=== PATIENT | male | born 1965 | race Caucasian/White ===

== ENCOUNTER → 2018-02-19 | Outpatient (CLI) | payer OTHER ==
[~2018-02-19] MED LIST: GADOBENATE DIMEGLUMINE 0 ML IV ONE
== END ==
LOC: MRI 07:24
PROVIDERS: ATTEND Internal Medicine
DX: I25.10 Atherosclerotic heart disease of native coronary artery without angina pectoris (principal); G90.50 Complex regional pain syndrome I, unspecified; G90.9 Disorder of the autonomic nervous system, unspecified

== ENCOUNTER → 2018-04-13 | Outpatient (CLI) | payer OTHER ==
--- NOTE | 2018-04-13 17:18 | Diagnostic Imaging Report ---
Ventilation/perfusion lung scan Clinical Information: 53 M with COPD and acute chest pain Comparison: None Discussion: Xenon-133 gas 20 mCi was administered via inhalation. Dynamic images of the lungs in the posterior projection were obtained through single breath, equilibrium, and washout phases. Distribution of tracer activity appears physiologic throughout the lungs.. There are no segmental ventilatory defects. Washout of tracer is diffusely delayed with no evidence of air trapping. Perfusion images of the lungs were obtained in multiple projections following intravenous administration of approximately 6.6 mCi of Tc-99m MAA. Distribution of tracer appears physiologic throughout the lungs. The contours of the lungs are well demarcated. There are no segmental perfusion defects of any size. The cardiomediastinal silhouette is unremarkable. Impression: 1. Scan findings represent a VERY LOW probability for acute pulmonary embolic disease based on the PIOPED II criteria. 2. Ventilation findings consistent with known obstructive lung disease. Signed by: Dr. Dionne Quinones M.D. on 04/13/2018 5:14 PM
== END | disposition home or self-care (01) ==
LOC: NM 09:58
PROVIDERS: ATTEND Internal Medicine
DX: R07.9 Chest pain, unspecified (principal); R06.02 Shortness of breath; I25.118 Atherosclerotic heart disease of native coronary artery with other forms of angina pectoris; J44.9 Chronic obstructive pulmonary disease, unspecified; E78.5 Hyperlipidemia, unspecified; Z95.5 Presence of coronary angioplasty implant and graft; H40.9 Unspecified glaucoma; Z88.0 Allergy status to penicillin; Z88.8 Allergy status to other drugs, medicaments and biological substances
CPT/HCPCS: 78582; A9540; A9558

== ENCOUNTER 2019-07-06 15:01 | Observation (INO) | payer MEDICARE, OTHER ==
[~2019-07-06] VITALS: Ht 172.7 cm; Wt 89.4 kg
--- OUTSIDE RECORDS SUMMARY | 2019-07-06 15:04 | XMS REPORT | Continuity of Care Document ---
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 Role Phone [employer] Unavailable Unavailable Problems Problem Status Onset Date Classification Date Reported Comments Source Age-related nuclear cataract of both eyes Active 11/29/2017 Problem 09/10/2018 [facility] Blindness right eye category 5, normal vision left eye Active 11/29/2017 Problem 09/10/2018 [facility] Transient visual loss of both eyes Active 11/27/2017 Problem 09/10/2018 [facility] Elevated C-reactive protein (CRP) Active 11/27/2017 Problem 09/10/2018 [facility] Elevated erythrocyte sedimentation rate Active 11/27/2017 Problem 09/10/2018 [facility] 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 11/27/2017 Problem 09/10/2018 [facility] Chronic systolic congestive heart failure Active 10/13/2017 Problem 09/10/2018 [facility] Vision loss of right eye Active 10/06/2017 Problem 09/10/2018 [facility] CAD S/P percutaneous coronary angioplasty Active 10/06/2017 Problem 09/10/2018 [facility] Chronic congestive heart failure Active 10/06/2017 Problem 09/10/2018 [facility] Smoker Active 10/06/2017 Problem 09/10/2018 [facility] Concern about stroke without diagnosis Active 10/06/2017 Problem 09/10/2018 [facility] S/P colonoscopy with polypectomy Active 10/06/2017 Problem 09/10/2018 [facility] Family history of colon cancer in mother Active 10/06/2017 Problem 09/10/2018 [facility] Wheezing Active 10/06/2017 Problem 09/10/2018 [facility] Abnormal EKG Active Diagnosis 09/23/2015 Josefa Nick CAD, [place] Coronary Artery Active Problem 09/23/2015 Josefa Nick Hypercholesterolemia Active Problem 09/23/2015 Josefa Nick Atheroscler of [place] artery of both legs with intermit claudication Active Problem 09/23/2015 Josefa Nick Shortness of breath Active Problem 09/23/2015 Josefa Nick Ischemic cardiomyopathy Active Problem 09/23/2015 Josefa [place] PTCA Status Active Problem 09/23/2015 Josefa [place] Acute myocardial infarction of anterolateral wall, initial episode of care Active Problem 09/23/2015 Josefa De La Rosashahrzad Angina Active Problem 09/23/2015 Josefa De La Rosashahrzad PA Old myocardial infarction Active Problem 09/23/2015 Josefa [place] Mitral valve disorders Active Problem 09/23/2015 Josefa [place] Cough Active Problem 09/10/2018 [facility] Influenza Active Problem 09/10/2018 [facility] Tachycardia Active Problem 09/10/2018 [facility] Tachypnea Active Problem 09/10/2018 [facility] SIRS (systemic inflammatory response syndrome) Active Problem 09/10/2018 [facility] Medications Medication Details Route Status Patient Instructions Ordering Provider Order Date Source Latanoprost 0.005 % Eye Drops Xalatan 0.005 % Eye Drops Instill 1 Drop in right eye at bedtime nightly. Active 11/27/2017 [facility] Ibuprofen 800 Mg Tablet Take 800 mg by mouth every 8 hours as needed. Oral No Longer Active 11/17/2017 [facility] Oseltamivir 75 Mg Capsule Take 1 capsule by mouth 2 times daily for 5 days. Oral No Longer Active 11/17/2017 [facility] Promethazine 25 Mg Tablet Take 1 tablet by mouth every 6 hours as needed for up to 7 days for Nausea or Vomiting. Oral No Longer Active 11/17/2017 [facility] Albuterol Sulfate Hfa 90 McG/Actuation Aerosol Inhaler Inhalation Inactive 10/06/2017 [facility] Peg 3350-Electrolytes 236 Gram-22.74 Gram-6.74 Gram-5.86 Gram Solution Add lukewarm drinking water to the fill tanvi (4 liters) and shake. Drink as directed by your doctor.. Active 10/06/2017 [facility] Albuterol Sulfate Hfa 90 McG/Actuation Aerosol Inhaler Inhale 2 Puffs by mouth 4 times daily as needed for Wheezing or Shortness of Breath. Inhalation Active 10/06/2017 [facility] Losartan Potassium 1 tablet Orally Active 25 MG Orally Once a day [facility] 07/03/2014 [facility] [place] Livalo 1 tablet Orally Active 4 MG Orally Once a day [facility] 06/10/2014 [facility] Rjshahrzad Coreg 1 tablet with food Orally Active 3.125 MG Orally Twice a day [place] 06/10/2014 Josefa Nick Protonix 1 tablet Orally Active 40 mg [facility]ally [facility] Plavix 1 tablet Orally Active 75 mg Orally Once a day [facility] Mitul Nick Famotidine 1 tablet at bedtime Orally Active 40 mg Orally Once a day [facility] Mitul Nick Carvedilol 1 tablet Orally Active 3.125 MG Orally Twice a day [facility] Mitul Nick Hyoscyamine Sulfate CR 1 tablet Orally Active 0.375 MG Orally Twice a day [facility] Mitul Nick Pantoprazole Sodium 1 tablet Orally Active 40 mg Orally Once a day [facility] Mitul Nick Florastor 1 capsule Orally Active 250 MG Orally Twice a day [facility] Mitul Nick Aspirin 81 Mg Chewable Tablet Chew and swallow 81 mg by mouth daily. Active [facility] Carvedilol 3.125 Mg Tablet Take 12.5 mg by mouth 2 times daily (with meals) . Oral Active [facility] Clopidogrel 75 Mg Tablet Take 75 mg by mouth daily. Oral Active [facility] Losartan 100 Mg Tablet Take 100 mg by mouth daily. Oral Active [facility] Nitroglycerin 0.[address] 0.4 mg under tongue every 5 minutes as needed Dissolve 1 tablet under the tongue every 5 minutes as needed, up to 3 times. If chest pain persists, call 911. Sublingual Active [facility] ranolazine (RANEXA) 500 mg extended release tablet Take 500 mg by mouth 2 times daily. Oral Active [facility] Isosorbide Mononitrate Er 30 Mg Tablet,Extended Release 24 Hr Take 30 mg by mouth daily. Oral Active [facility] Pravastatin 40 Mg Tablet Take 40 mg by mouth at bedtime nightly. Oral Active [facility] [employer] Allergies, Adverse Reactions, Alerts Substance Category Reaction Severity Reaction type Status Date Reported Comments Source statins Adverse Reaction Muscle weakness Adverse Reaction Active 10/02/2014 Josefa Nick [place] Adverse Reaction anaphylaxis Adverse Reaction Active 10/02/2014 Josefa Nick Tagamet HB Adverse Reaction Shortness of breath Adverse Reaction Active 10/02/2014 Josefa Nick Lisinopril Adverse Reaction Hypotension Adverse Reaction Active 10/02/2014 Josefa Nick Lipitor Adverse Reaction Weakness & muscle aches Adverse Reaction Active 10/02/2014 Josefa Nick Penicillin Rash High Propensity to adverse reactions to drug Active 10/06/2017 [facility] Cimetidine Rash High Propensity to adverse reactions to drug Active 10/06/2017 [facility] Immunizations Immunization Date Given Site Status Last Updated Comments Source Pneumococcal Conjugate <Unspecified> 08/18/2017 completed [facility] Results Order Name Results Value Reference Range Date Interpretation Comments Source ELECTROPH, BLD Protein 7.9 11/21/2017 [facility] ELECTROPH, BLD Comment Electronically signed out by: Maddi Whalen,PhD./[id number] (note) INTERPRETATION: The Alpha-2 fraction is increased. This could represent increase in Alpha-2 macroglobulin or haptoglobin among others. These are acute phas reactants. Alpha-2 globulins may also be increased in renal failure. 11/21/2017 [facility] SYPHILIS SCREEN FOR INFECTION Treponemal Ab Negative 11/21/2017 [facility] SYPHILIS SCREEN FOR INFECTION Final Report Negative 11/21/2017 [facility] HEMOGLOBIN A1C Hemoglobin A1c 6.1 4.3 - 6.1 11/21/2017 [facility] HEMOGLOBIN A1C Est Average Gluc 128.4 11/21/2017 [facility] SED RATE Sed Rate 32 <20 mm/Hr 11/21/2017 [facility] SED RATE Lab Interpretation Abnormal 11/21/2017 [facility] VITAMIN B12 Vitamin B12 297 211 - 911 11/21/2017 [facility] TSH TSH 1.34 0.45 - 3.50 11/21/2017 [facility] C-REACTIVE PROT C-Reactive Prot 8.74 0 - 0.79 11/21/2017 [facility] C-REACTIVE PROT Lab Interpretation Abnormal 11/21/2017 [facility] BASIC METABOLIC PANEL CO2 28 21 - 31 11/20/2017 [facility] BASIC METABOLIC PANEL Chloride 100 98 - 107 11/20/2017 [facility] BASIC METABOLIC PANEL Potassium 3.8 3.5 - 5.1 11/20/2017 [facility] BASIC METABOLIC PANEL Sodium 138 136 - 145 11/20/2017 [facility] BASIC METABOLIC PANEL Glucose 126 70 - 99 11/20/2017 [facility] BASIC METABOLIC PANEL Urea Nitrogen 10 7 - 25 11/20/2017 [facility] BASIC METABOLIC PANEL Creatinine 1.11 0.6 - 1.3 11/20/2017 [facility] BASIC METABOLIC PANEL Anion Gap 10 11/20/2017 [facility] BASIC METABOLIC PANEL Calcium 8.9 8.6 - 10.3 11/20/2017 [facility] BASIC METABOLIC PANEL GFR, Estimated >60 mL/min/1.73 m2 11/20/2017 [facility] BASIC METABOLIC PANEL GFR, Estim, Afr-Am >60 mL/min/1.73 m2 11/20/2017 [facility] BASIC METABOLIC PANEL Lab Interpretation Abnormal 11/20/2017 [facility] LIPID PROFILE Cholesterol 141 0 - 200 11/20/2017 REFERENCE RANGE:
Desirable: <200 mg/dL
Borderline: 200-240 mg/dL
High Risk: >240 mg/dL
National Heart, Lung and Blood [place], [facility] Publication No.[id number] February
2000

[facility] LIPID PROFILE Triglyceride 104 <150 11/20/2017 REFERENCE RANGE:
Normal: <150 mg/dL
Borderline High: 150-199 mg/dL
High: 200-499 mg/dL
Very High: >ny=049 mg/dL

[facility] LIPID PROFILE HDL 24 40 - 60 11/20/2017 [facility] LIPID PROFILE LDL 96 11/20/2017 REFERENCE RANGE:
Optimal: <100 mg/dL
Near Optimal: 100-129 mg/dL
Borderline High: 130-159 mg/dL
High: 160-189 mg/dL
Very High: >ce=147 mg/dL

[facility] LIPID PROFILE Lab Interpretation Abnormal 11/20/2017 [facility] CBC/DIFF WBC 8.3 4.5 - 12 11/20/2017 [facility] CBC/DIFF RBC 4.54 4.60 - 6.20 11/20/2017 [facility] CBC/DIFF Hemoglobin 14.1 14 - 18 11/20/2017 [facility] CBC/DIFF Hematocrit 41.1 40 - 54 11/20/2017 [facility] CBC/DIFF MCV 91 82 - 92 11/20/2017 [facility] CBC/DIFF MCH 31.1 27 - 31 11/20/2017 [facility] CBC/DIFF MCHC 34.3 32 - 36 11/20/2017 [facility] CBC/DIFF RDW 42.5 35.1 - 43.9 11/20/2017 [facility] CBC/DIFF Platelet 352 150 - 400 11/20/2017 [facility] CBC/DIFF Neutrophil 67.0 34 - 67.9 11/20/2017 [facility] CBC/DIFF Lymphocyte 24.0 21.8 - 50 11/20/2017 [facility] CBC/DIFF Atypical Lymph 2 11/20/2017 [facility] CBC/DIFF Monocyte 6.0 5.3 - 12 11/20/2017 [facility] CBC/DIFF Basophil None seen 0.2 - 1.2 11/20/2017 [facility] CBC/DIFF Eosinophil 1.0 0.8 - 5 11/20/2017 [facility] CBC/DIFF NRBC 1 /100 WBC 11/20/2017 [facility] CBC/DIFF Neutrophil, Abs 5.56 1.78 - 5.36 11/20/2017 [facility] CBC/DIFF Lymphocyte, Abs 1.99 1.32 - 3.57 11/20/2017 [facility] CBC/DIFF Monocyte, Abs 0.50 0.3 - 0.82 11/20/2017 [facility] CBC/DIFF Basophil, Abs None seen 0.01 - 0.08 11/20/2017 [facility] CBC/DIFF Eosinophil, Abs 0.08 0.04 - 0.54 11/20/2017 [facility] CBC/DIFF Large Platelets 1+ 11/20/2017 [facility] CBC/DIFF Lab Interpretation Abnormal 11/20/2017 [facility] MAGNESIUM Magnesium 2.4 1.8 - 2.4 11/17/2017 [facility] INFLUENZA RSV SUBTYPE Influenza A Not detected 11/17/2017 [facility] INFLUENZA RSV SUBTYPE Influenza A,H1 Not detected 11/17/2017 [facility] INFLUENZA RSV SUBTYPE Influenza A,H3 Not detected 11/17/2017 [facility] INFLUENZA RSV SUBTYPE Flu A [id number] Not detected 11/17/2017 [facility] INFLUENZA RSV SUBTYPE Influenza B PCR Detected 11/17/2017 [facility] INFLUENZA RSV SUBTYPE RSV A Not detected 11/17/2017 [facility] INFLUENZA RSV SUBTYPE RSV B Not detected This test utilizes FDA cleared INSOMENIAigene Respiratory Virus Plus Nucleic Acid Test from [employer]. This test is a qualitative multiplexed test for the detection of Influenza A, Influenza A H1, Influenza A H3, Influenza A 2009 H1N1, Influenza B, RSV A and RSV B. 11/17/2017 [facility] LEGIONELLA AG, UR Legionella Ag, Ur Negative NEG 11/17/2017 [facility] RAPID INFLUENZA SCREEN Spec Description Nasal 11/17/2017 [facility] RAPID INFLUENZA SCREEN Order Comments None 11/17/2017 [facility] RAPID INFLUENZA SCREEN Direct Exam Negative for Influenza A and B by EIA 11/17/2017 [facility] RAPID INFLUENZA SCREEN Report Status Final 11/16/2017 11/17/2017 [facility] SPUTUM STAIN / CULTURE Spec Description Sputum 11/17/2017 [facility] SPUTUM STAIN / CULTURE Order Comments None 11/17/2017 [facility] SPUTUM STAIN / CULTURE Gram Stain 2+ WBC's seen 1+ Epithelial cells Mixed bacterial morphotypes seen 11/17/2017 [facility] SPUTUM STAIN / CULTURE Culture 4+ Normal iliana 11/17/2017 [facility] SPUTUM STAIN / CULTURE Report Status Final 11/19/2017 11/17/2017 [facility] UA CHEMISTRIES Color Lolly 11/17/2017 [facility] UA CHEMISTRIES Clarity Hazy 11/17/2017 [facility] UA CHEMISTRIES Spec [place] 1.029 1.001 - 1.035 11/17/2017 [facility] UA CHEMISTRIES pH 5.0 5 - 8 11/17/2017 [facility] UA CHEMISTRIES Protein 3+ NEG 11/17/2017 [facility] UA CHEMISTRIES Glucose Negative NEG 11/17/2017 [facility] UA CHEMISTRIES Ketone 1+ NEG 11/17/2017 [facility] UA CHEMISTRIES Bilirubin Negative NEG 11/17/2017 [facility] UA CHEMISTRIES Nitrate Negative NEG 11/17/2017 [facility] UA CHEMISTRIES Urobilinogen 2.0 0.2 - 1 11/17/2017 [facility] UA CHEMISTRIES Leukocyte Negative NEG 11/17/2017 [facility] UA CHEMISTRIES Blood 2+ NEG 11/17/2017 [facility] UA CHEMISTRIES RBC 4 0 - 4 11/17/2017 [facility] UA CHEMISTRIES WBC 5 0 - 5 11/17/2017 [facility] UA CHEMISTRIES Epithelial Cell 2 /HPF 11/17/2017 [facility] UA CHEMISTRIES Mucous Present 11/17/2017 [facility] UA CHEMISTRIES Lab Interpretation Abnormal 11/17/2017 [facility] BLOOD CULTURE Spec Description Blood Left arm 11/16/2017 [facility] BLOOD CULTURE Order Comments None 11/16/2017 [facility] BLOOD CULTURE Culture No growth 5 days 11/16/2017 [facility] BLOOD CULTURE Report Status Final 11/21/2017 11/16/2017 [facility] B NATRIURETIC PEPT B Natriuretic Pept 80 <101 11/16/2017 [facility] PT/INR PT 13.8 11.8 - 15.0 11/16/2017 [facility] PT/INR INR 1.1 SUGGESTED THERAPEUTIC RANGES: INR 2.0-3.0 for MODERATE INTENSITY ANTICOAGULATION INR 2.5-3.5 for HIGH INTENSITY ANTICOAGULATION 11/16/2017 [facility] COMPREHENSIVE METABOLIC PANEL(DBIL NOT INCLUDED) Albumin 3.6 3.4 - 5 11/16/2017 [facility] COMPREHENSIVE METABOLIC PANEL(DBIL NOT INCLUDED) Calcium 8.4 8.5 - 10.2 11/16/2017 [facility] COMPREHENSIVE METABOLIC PANEL(DBIL NOT INCLUDED) CO2 22.6 21 - 32 11/16/2017 [facility] COMPREHENSIVE METABOLIC PANEL(DBIL NOT INCLUDED) Chloride 95 98 - 107 11/16/2017 [facility] COMPREHENSIVE METABOLIC PANEL(DBIL NOT INCLUDED) Creatinine 1.32 0.6 - 1.3 11/16/2017 [facility] COMPREHENSIVE METABOLIC PANEL(DBIL NOT INCLUDED) Glucose 91 70 - 99 11/16/2017 [facility] COMPREHENSIVE METABOLIC PANEL(DBIL NOT INCLUDED) Alk Phos 105 45 - 117 11/16/2017 [facility] COMPREHENSIVE METABOLIC PANEL(DBIL NOT INCLUDED) Potassium 4.1 3.5 - 5.1 11/16/2017 [facility] COMPREHENSIVE METABOLIC PANEL(DBIL NOT INCLUDED) Sodium 131 136 - 145 11/16/2017 [facility] COMPREHENSIVE METABOLIC PANEL(DBIL NOT INCLUDED) ALT 21 12 - 78 11/16/2017 [facility] COMPREHENSIVE METABOLIC PANEL(DBIL NOT INCLUDED) AST 32 15 - 37 11/16/2017 [facility] COMPREHENSIVE METABOLIC PANEL(DBIL NOT INCLUDED) Urea Nitrogen 29 7 - 18 11/16/2017 [facility] METABOLIC PANEL(DBIL NOT INCLUDED) T Bilirubin 0.7 0.2 - 1 11/16/2017 [facility] COMPREHENSIVE METABOLIC PANEL(DBIL NOT INCLUDED) T Protein 7.9 6.4 - 8.2 11/16/2017 [facility] COMPREHENSIVE METABOLIC PANEL(DBIL NOT INCLUDED) GFR, Estimated 57 mL/min/1.73 m2 11/16/2017 [facility] COMPREHENSIVE METABOLIC PANEL(DBIL NOT INCLUDED) GFR, Estim, Afr-Am >60 mL/min/1.73 m2 11/16/2017 [facility] COMPREHENSIVE METABOLIC PANEL(DBIL NOT INCLUDED) Anion Gap 13.4 11/16/2017 [facility] METABOLIC PANEL(DBIL NOT INCLUDED) Lab Interpretation Abnormal 11/16/2017 [facility] OCCULT BLOOD ICT Occult Blood ICT Negative NEG 11/16/2017 [facility] 12 LEAD EKG 12 LEAD EKG FOR [facility] Test Date:2017-11-16 Pat Name: NELY Willamspartment: : Gender: MTechnician: [id number] :1965 Requested By: Order Number:Christal STAFFORD: Carmen Figueroa M.D. Measurements IntervalsAxis Rate: 119P:54 WA: 151QRS:70 QRSD: 83 T:65 QT: 317 QTc:447 Interpretive Statements SINUS TACHYCARDIA POSSIBLE LEFT ATRIAL ENLARGEMENT ANTEROSEPTAL MYOCARDIAL INFARCTION, OF INDETERMINATE AGE Electronically Signed On 11-16-17 14:02:15 ROLL TENDER by Carmen Figueroa M.D. 11/16/2017 [facility] TROPONIN I POC Troponin POC 0.02 0 - 0.08 11/16/2017 [facility] POC CO2 POC 22 21 - 32 11/16/2017 [facility] POC Chloride POC 96 98 - 107 11/16/2017 [facility] POC Potassium POC 3.7 3.5 - 5.1 11/16/2017 [facility] POC Sodium POC 135 136 - 145 11/16/2017 [facility] POC Glucose POC 117 74 - 106 11/16/2017 [facility] POC Urea Nitrogen POC 30 7 - 18 11/16/2017 [facility] POC Creatinine POC 1.4 0.6 - 1.3 11/16/2017 [facility] POC Calcium Ionized POC 1.06 1.15 - 1.29 11/16/2017 [facility] POC Hemoglobin POC 19.0 14 - 18 11/16/2017 [facility] POC Hematocrit POC 56.0 40 - 54 11/16/2017 [facility] POC GFR, Estimated 53 mL/min/1.73 m2 11/16/2017 [facility] POC GFR, Estim, Afr-Am >60 mL/min/1.73 m2 11/16/2017 [facility] POC Lab Interpretation Abnormal 11/16/2017 [facility] 12 LEAD EKG 12 LEAD EKG FOR [facility] Test Date:2017-11-03 Pat Name: NELY Aguilar: : Gender: MTechnician: [id number] :1965 Requested By: Order Number:Reading MD: Carmen Figueroa M.D. Measurements IntervalsAxis Rate: 71 P:51 WA: 152QRS:59 QRSD: 96 T:89 QT: 418 QTc:454 Interpretive Statements Normal sinus rhythm Anterior infarct, age undetermined Abnormal ECG Electronically Signed On 11-03-17 11:10:14 ROLL TENDER by Carmen Figueroa M.D. 11/03/2017 [facility] CREATININE Creatinine 1.30 0.6 - 1.3 10/10/2017 [facility] CREATININE GFR, Estimated 58 mL/min/1.73 m2 10/10/2017 [facility] CREATININE GFR, Estim, Afr-Am >60 mL/min/1.73 m2 10/10/2017 [facility] Pathology Reports No Data Provided for This Section Diagnostic Reports Report Value Date Source XRAY CHEST 2 VIEWS IMPRESSION: No acute thoracic abnormality. Streaky opacities in the lung basesstatistically represent atelectasis. If the report is "FINALIZED" it indicates that the attending/staffradiologist has reviewed the images and agrees with the resident'sinterpretation. Dictated By: Fabian London MD, 11/16/2017 5:14 PM I have reviewed the study and agree with the findings in this report. Signed By: Ventura Beltran MD, 11/16/2017 5:26 PM EXAMINATION:XRAY CHEST 2 VIEWS INDICATION: Shortness of breath COMPARISON:None FINDINGS:TUBES and LINES:None. LUNGS:Lungs are well inflated.Lungs are clear. There is noevidence of pneumonia or pulmonary edema. PLEURA:No pleural effusion or pneumothorax. HEART AND MEDIASTINUM:The cardiomediastinal silhouette isunremarkable. BONES AND SOFT TISSUES:No acute osseous lesion.Soft tissues areunremarkable. UPPER ABDOMEN: No free air under the diaphragm. Interface, Surya/Mammog In - 11/16/2017 5:31 PM CSTEXAMINATION: XRAY CHEST 2 VIEWS INDICATION: Shortness of breath COMPARISON: None FINDINGS: TUBES and LINES: None. LUNGS: Lungs are well inflated. Lungs are clear. There is no evidence of pneumonia or pulmonary edema. PLEURA: No pleural effusion or pneumothorax. HEART AND MEDIASTINUM: The cardiomediastinal silhouette is unremarkable. BONES AND SOFT TISSUES: No acute osseous lesion. Soft tissues are unremarkable. UPPER ABDOMEN: No free air under the diaphragm. IMPRESSION IMPRESSION: No acute thoracic abnormality. Streaky opacities in the lung bases statistically represent atelectasis. If the report is "FINALIZED" it indicates that the attending/staff radiologist has reviewed the images and agrees with the resident's interpretation. Dictated By: Fabian London MD, 11/16/2017 5:14 PM I have reviewed the study and agree with the findings in this report. Signed By: Ventura Beltran MD, 11/16/2017 5:26 PM 11/16/[address] [facility] [address] HEAD W/O CONTRAST IMPRESSION: 1.Minimal right superior/anterior frontal lobe cortico-subcorticalencephalomalacia perhaps sequela from remote trauma. Persistent priorstudies if available is advised 2.Otherwise no intracra nial abnormalities, particularly no hemorrhageor acute cortical infarcts. I have reviewed the study and agree with the findings in this report. Signed By: Alexia Mantilla MD, 10/17/2017 4:14 PM Exam : Head CT without contrastHistory: Smoker/CAD p/w h/o right eye vision loss/facial numbness on08/18/2017 > neg CTH at OSH, still unable to see.Comparison studies: None. Technique: Axial scans were obtai jodi from skull base to the vertex.Coronal and sagittal reconstructions obtained from the axial data. Radiation Dose: Total DLP: 966.50 mGy*cm.Estimated Effective Dose: DLP x 0.0021 mSv. FINDINGS: Scalp/Skull:No abnormalities. Brain sulci: Appropriate for patient's age.Ventricles: Normal in size and configuration.No hydrocephalus. Extra-axial spaces:No masses or fluid collections. Parenchyma: Minimal focal cortico-subcortical encephalomalacia/gliosis in theanterior aspect of the right superior frontal lobe may represent sequelafrom remote trauma. Otherwise no areas of abnormal density in the brainparenchyma.No masses, hemorrhage or acute or chronic cortical insults. Dural sinuses:No abnormal densities.Sellar/Suprasellar region: Intact.Skull base and Craniocervical junction: Intact. Interface, Rad/Mammog In - 10/17/2017 4:19 PM CSTExam : Head CT without contrast History: Smoker/CAD p/w h/o right eye vision loss/facial numbness on 08/18/2017 > neg CTH at OSH, still unable to see. Comparison studies: None. Technique: Axial scans were obtained from skull base to the vertex. Coronal and sagittal reconstructions obtained from the axial data. Radiation Dose: Total DLP: 966.50 mGy*cm. Estimated Effective Dose: DLP x 0.0021 mSv. FINDINGS: Scalp/Skull: No abnormalities. Brain sulci: Appropriate for patient's age. Ventricles: Normal in size and configuration.No hydrocephalus. Extra-axial spaces: No masses or fluid collections. Parenchyma: Minimal focal cortico-subcortical encephalomalacia/gliosis in the anterior aspect of the right superior frontal lobe may represent sequela from remote trauma. Otherwise no areas of abnormal density in the brain parenchyma. No masses, hemorrhage or acute or chronic cortical insults. Dural sinuses: No abnormal densities. Sellar/Suprasellar region: Intact. Skull base and Craniocervical junction: Intact. IMPRESSION IMPRESSION: 1. Minimal right superior/anterior frontal lobe cortico-subcortical encephalomalacia perhaps sequela from remote trauma. Persistent prior studies if available is advised 2. Otherwise no intracranial abnormalities, particularly no hemorrhage or acute cortical infarcts. I have reviewed the study and agree with the findings in this report. Signed By: Alexia Mantilla MD, 10/17/2017 4:14 PM 10/17/2017 [facility] Consultation Notes No Data Provided for This Section Discharge Summaries No Data Provided for This Section History and Physicals No Data Provided for This Section Vital Signs Vital Sign Value Date Comments Source Systolic (mm Hg) 137 12/01/2017 [facility] Diastolic (mm Hg) 87 12/01/2017 [facility] Heart Rate 75 12/01/2017 [facility] Temperature Oral (F) 36.5 Mary 12/01/2017 [facility] Respitory Rate 18 12/01/2017 [facility] Height 170.7 cm 12/01/2017 [facility] Weight 92.08 12/01/2017 [facility] BMI Calculated 31.60 12/01/2017 [facility] Weight 203 10/02/2014 [facility] Height 68 10/02/2014 [facility] Temperature Oral (F) 96.9 F 10/02/2014 [facility] Heart Rate 69 10/02/2014 [facility] [place] Diastolic (mm Hg) 85 10/02/2014 [facility] [place] Systolic (mm Hg) 130 10/02/2014 [facility] 68 07/03/2014 [facility] [place] Temperature Oral (F) 97.1 F 07/03/2014 [facility]amed [facility] [place] Heart Rate 69 07/03/2014 [facility] [place] Diastolic (mm Hg) 60 07/03/2014 Mohyaritza O [place] Systolic (mm Hg) 115 07/03/2014 [facility] De [facility] Weight 194 06/10/2014 Josefa O [place] Height 68 06/10/2014 [facility] [place] Temperature Oral (F) 96.6 F 06/10/2014 Josefa O Rjoudi Heart Rate 69 06/10/2014 [facility] Diastolic (mm Hg) 60 06/10/2014 [facility] [place] Systolic (mm Hg) 115 06/10/2014 Josefa O [facility] Weight 192 05/27/2014 Josefa O [facility]i Height 68 05/27/2014 Josefa Andrewdi Temperature Oral (F) 96.4 F 05/27/2014 Josefa Nick Heart Rate 69 05/27/2014 Josefa De La [facility]i Diastolic (mm Hg) 60 05/27/2014 Josefa De La Rosaoudi Systolic (mm Hg) 120 05/27/2014 Annayaritza Nick Encounters Location Location Details Encounter Type Encounter Number Reason For Visit Attending Provider ADM Date DC Date Status Source Josefa Nick MD PA Unknown [id number] 05/27/2014 05/27/2014 Josefa Nick MD PA Unknown [id number] 05/27/2014 05/27/2014 Josefa Nick MD PA Unknown [id number] 05/27/2014 05/27/2014 Josefa Nick MD PA Unknown [id number] 05/27/2014 05/27/2014 Josefa Nick MD PA Unknown [id number] 06/10/2014 06/10/2014 Josefa Nick, MD PA Unknown [id number] 06/10/2014 06/10/2014 Josefa Nick MD PA Unknown [id number] 06/10/2014 06/10/2014 Josefa Nick MD PA Unknown [id number] 07/03/2014 07/03/2014 Josefa Nick MD PA Unknown [id number] 07/03/2014 07/03/2014 Josefa Nick MD PA Unknown [id number] 10/02/2014 10/02/2014 Josefa Nick MD PA Unknown [id number] 10/02/2014 10/02/2014 Josefa Nick MD PA Unknown [id number] 12/09/2014 12/09/2014 Josefa Nick MD PA Unknown [id number] 12/09/2014 12/09/2014 [facility] Visit [id number] 10/06/2017 [facility] Office Visit [id number] Vision loss of right eye Concern about stroke without diagnosis CAD S/P percutaneous coronary angioplasty Chronic congestive heart failure, unspecified congestive heart failure type Smoker Wheezing S/P colonoscopy with polypectomy Family history of colon cancer in mother Everette Rojas MD 10/06/2017 10/06/2017 [facility] Visit [id number] 10/09/2017 [facility] Visit [id number] 10/10/2017 [facility] Orders Only [id number] CAD S/P percutaneous coronary angioplasty Chronic systolic congestive heart failure Smoker Chronic chest pain Everette Rojas MD 10/13/2017 [facility] Telephone [id number] Right facial numbness Vision loss of right eye Everette Rojas MD 10/17/[address] [facility] [address] Scan SC Ancillary Procedure [id number] Everette Rojas MD 10/17/2017 10/17/2017 [facility] Visit [id number] 10/24/2017 [facility] Telephone [id number] Sarah Perkins RN 11/02/2017 [facility] [id number] CAD S/P percutaneous coronary angioplasty Chronic systolic congestive heart failure Everette Rojas MD 11/02/2017 [id number] CAD S/P percutaneous coronary angioplasty Chronic systolic congestive heart failure Everette Rojas MD 11/03/2017 11/03/2017 [facility] ASK YOUR NURSE PROGRAM Nurse Triage [id number] Xiomara Bolaños RN 11/16/[address] [facility] Emergency [id number] Cough Influenza SIRS (systemic inflammatory response syndrome) Tachypnea Tachycardia CAD S/P percutaneous coronary angioplasty Wheezing Influenza B Elton Yang MD 11/16/2017 11/17/2017 [facility] [place] Office Visit [id number] Vision loss of right eye Pato Morgan MD 11/20/2017 11/20/2017 [facility] Ophthalmology[facility]Optometry [facility] Telephone [id number] Brittney Gil MD 11/27/2017 [facility] Office Visit [id number] Glaucomatous optic atrophy of right eye Transient visual loss of both eyes Blindness of one eye with normal vision in contralateral eye Elevated erythrocyte sedimentation rate Elevated C-reactive protein (CRP) Myopia of left eye with astigmatism and presbyopia Everette Rojas MD 11/27/2017 11/27/2017 [facility] Ophthalmology Nurse Only [id number] Isha Crawford 11/29/2017 11/29/2017 [facility] Ophthalmology Office Visit [id number] Neovascular glaucoma, right eye, 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 Blindness right eye category 5, normal vision left eye Age-related nuclear cataract of both eyes Ocular ischemic syndrome Cedric Santana MD 11/29/2017 11/29/2017 [facility] Social Work [facility] Clinical Case Mgt [id number] Cherri Graham RN 12/01/2017 [facility] Family Practice [facility] Office Visit [id number] Financial difficulties Blindness right eye category 5, normal vision left eye Glaucomatous optic atrophy of right eye CAD S/P percutaneous coronary angioplasty Everette Rojas MD 12/01/2017 12/01/2017 [facility] BT Ophthalmology Orders Only [id number] Ocular ischemic syndrome Neovascular glaucoma, right eye, severe stage Cedric Santana MD 12/06/2017 [facility] Nuclear Medicine [facility] Encounter [id number] Everette Rojas MD 12/14/2017 12/14/2017 [facility] Procedures Procedure Code Date Perfomer Comments Source HEMOGLOBIN A1C [id number] 11/20/2017 [facility] SED RATE [id number] 11/20/2017 [facility] C-REACTIVE PROT [id number] 11/20/2017 [facility] TSH [id number] 11/20/2017 [facility] VITAMIN B12 [id number] 11/20/2017 [facility] SYPHILIS SCREEN FOR INFECTION [id number] 11/20/2017 [facility] LIPID PROFILE [id number] 11/20/2017 [facility] ELECTROPH, BLD 72297 11/20/2017 [facility] BASIC METABOLIC PANEL [id number] 11/17/2017 [facility] XRAY CHEST 2 VIEWS 49708 11/16/2017 [facility] INFLUENZA RSV SUBTYPE [id number] 11/16/2017 [facility] RAPID INFLUENZA SCREEN [id number] 11/16/2017 [facility] SPUTUM STAIN / CULTURE [id number] 11/16/2017 [facility] [place] [address] 11/16/2017 [facility] UA CHEMISTRIES [id number] 11/16/2017 [facility] COMPREHENSIVE METABOLIC PANEL(DBIL NOT INCLUDED) [id number] 11/16/2017 [facility] MAGNESIUM 71322 11/16/2017 [facility] B NATRIURETIC PEPT [id number] 11/16/2017 [facility] PT/INR 17309 11/16/2017 [facility] BLOOD CULTURE [id number] 11/16/2017 [facility] TROPONIN I POC [id number] 11/16/2017 [facility] CBC/DIFF 60168 11/16/2017 [facility] BMP POC 65946 11/16/2017 [place] [address] LEAD EKG [id number] 11/03/2017 [facility] CT HEAD W/O CONTRAST 67213 10/17/2017 [facility] OCCULT BLOOD ICT [id number] 10/09/2017 [facility] CREATININE [id number] 10/09/2017 [facility] Assessment and Plan No Data Provided for This Section Plan of Care Plan of Care Date Source CORONARY ARTERY DISEASE AGE 18 AND UP 11/20/2018 [facility] Colorectal Cancer Scrn Annual (FIT/FOBT) Age 50 to 75 11/16/2018 [facility] IMM Influenza Seasonal Jul to December (>/=19 yrs) 07/30/2018 [facility] Social History Social History Date Source Tobacco UseTypesPacks/DayYears UsedDate Former Smoker Cigarettes 11/12/1980 - 11/15/2017 Smokeless Tobacco: Never Used Tobacco Cessation: Counseling Given: No Comments: states 10 cigarettes a day,states trying to quit on his own states use to smoke 3 paks a day since 2011 and is down to 10 cigarettes a day Alcohol UseDrinks/Weekoz/WeekComments Yes states only drinks one or 2 beers a year Sex Assigned at BirthDate Recorded Not on file 12/01/2017 [facility] Social History ElementQualifiersDate Reported Smoking . Status Current Smoker 1 pack per day, Completed counseling for quiting smoking Yes February 12, 2015 Alcohol Use No. February 12, 2015 Alcohol Screening: No. February 12, 2015 Marital Status: . February 12, 2015 Do you drink alcohol? No. 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 [employer] February 12, 2015 02/12/2015 Josefa Nick Family History Value Date Source Medical HistoryRelationNameComments Cancer Brother Cancer Mother PHOENIX CALDERON Cancer Sister RelationNameStatusComments Brother Father GEORGE TINOCO (Age 1989) HEART PROBLEM Maternal Grandmother stroke Mother PHOENIX CALDERON Alive COLON CANCER Sister 09/10/2018 [facility] QualifierDescriptionCommentDate Reported Mother alive Aneuysm February 12, 2015 Father CHF, rejection of a heart transplant February 12, 2015 09/23/2015 Josefa Nick QualifierDescriptionCommentDate Reported Mother alive Aneuysm February 12, 2015 Father CHF, rejection of a heart transplant February 12, 2015 09/23/2015 Josefa Nick Advance Directives No Data Provided for This Section Functional Status No Data Provided for This Section
--- OUTSIDE RECORDS SUMMARY | 2019-07-06 15:05 | XMS REPORT | Clinical Summary ---
Author Author [facility] Organization 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 Disp. Refills Start End Date Status Date aspirin (ASPIRIN) 81 mg Chew and swallow 81 mg by Active chewable tablet mouth daily. carvedilol (COREG) 3.125 Take 12.5 mg by mouth 2 Active mg tablet times daily (with meals) . clopidogrel (PLAVIX) 75 Take 75 mg by mouth Active mg tablet daily. losartan (COZAAR) 100 mg Take 100 mg by mouth Active tablet daily. nitroGLYCERIN (NITROSTAT) Place 0.4 mg under tongue Active 0.4 mg sublingual tablet every 5 minutes as needed Dissolve 1 tablet under the tongue every 5 minutes as needed, up to 3 times. If chest pain persists, call 911. ranolazine (RANEXA) 500 Take 500 mg by mouth 2 Active mg extended release times daily. tablet polyethylene glycol Add lukewarm drinking 4000 mL 0 10/06/20 Active (GOLYTELY) 236-22.74-6.74 water to the fill tanvi (4 17 -5.86 gram oral liters) and shake. Drink solutionIndications: S/P as directed by your colonoscopy with doctor.. polypectomy, Family history of colon cancer in mother albuterol (VENTOLIN Inhale 2 Puffs by mouth 4 20.1 g 3 10/06/20 Active HFA,PROVENTIL HFA,PROAIR times daily as needed for 17 HFA) 90 mcg/actuation Wheezing or Shortness of inhalerIndications: Breath. Smoker, Wheezing isosorbide mononitrate Take 30 mg by mouth Active (IMDUR) 30 mg extended daily. release tablet pravastatin (PRAVACHOL) Take 40 mg by mouth at Active 40 mg tablet bedtime nightly. latanoprost (XALATAN) Instill 1 Drop in right 2.5 mL 12 11/27/19 Active 0.005 % ophthalmic eye at bedtime nightly. 18 solutionIndications: Glaucomatous optic atrophy of right eye ibuprofen (MOTRIN) 800 mg Take 800 mg by mouth 11/17/19 Discontin tablet every 8 hours as needed. 18 ued oseltamivir (TAMIFLU) 75 Take 1 capsule by mouth 2 10 capsule 0 11/17/19 11/22/19 mg capsuleIndications: times daily for 5 days. 18 18 Influenza B promethazine (PHENERGAN) Take 1 tablet by mouth 30 tablet 0 11/17/19 11/24/19 25 mg tabletIndications: every 6 hours as needed 18 18 Influenza B for up to 7 days for Nausea or Vomiting. 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 Chronic systolic congestive heart failure 10/13/2017 Vision loss of right eye 10/06/2017 CAD S/P percutaneous coronary angioplasty 10/06/2017 Chronic congestive heart failure 10/06/2017 Smoker 10/06/2017 Concern about stroke without diagnosis 10/06/2017 S/P colonoscopy with polypectomy 10/06/2017 Family history of colon cancer in mother 10/06/2017 Wheezing 10/06/2017 Cough Influenza Tachycardia Tachypnea SIRS (systemic inflammatory response syndrome) Encounters Date Type Specialty Care Team Description 12/13/2017 Hospital Radiology Everette Rojas MD No Show Encounter 12/06/2017 Orders Only Ophthalmology Cedric Santana MD Ocular ischemic syndrome; Neovascular glaucoma, right eye, severe stage 12/01/2017 Office Visit Family Practice Everette Rojas MD Financial difficulties (Primary Dx); Blindness right eye category 5, normal vision left eye; Glaucomatous optic atrophy of right eye; CAD S/P percutaneous coronary angioplasty 12/01/2017 Clinical Case Social Work Cherri Graham Ivan, RN Mgt 11/29/2017 Office Visit Ophthalmology Cedric Santana MD Ocular ischemic syndrome (Primary Dx); Neovascular glaucoma, right eye, severe stage; Glaucomatous optic atrophy of right eye; Blindness right eye category 5, normal vision left eye; Age-related nuclear cataract of both eyes 11/29/2017 Nurse Only Ophthalmology Isha Crawford Peter T, MD 11/27/2017 Office Visit Ophthalmology Everette Rojas MD Glaucomatous optic Brittney Gil MD atrophy of right eye (Primary Dx); Transient visual loss of both eyes; Blindness of one eye with normal vision in contralateral eye; Elevated erythrocyte sedimentation rate; Elevated C-reactive protein (CRP); Myopia of left eye with astigmatism and presbyopia 11/27/2017 Telephone Ophthalmology Brittney Gil MD Appointment Related Questions (BT appointment ) 11/20/2017 Office Visit Neurology Pato Morgan MD Vision loss of right eye Aracely Marie, (Primary Dx) ResidentMD 11/16/2017 Emergency Elton Yang MD Cough (Primary Dx); - Rama Joshi MD Influenza; 11/17/2017 SIRS (systemic inflammatory response syndrome); Tachypnea; Tachycardia; CAD S/P percutaneous coronary angioplasty; Wheezing; Influenza B 11/16/2017 Nurse Triage Xiomara Bolaños RN 11/03/2017 Nurse Only Everette Rojas MD CAD S/P percutaneous Florence Polk LVN coronary angioplasty (Primary Dx); Chronic systolic congestive heart failure 11/02/2017 Telephone Family Practice Sarah Perkins, Results RN 11/02/2017 Orders Only Family Practice Everette Rojas MD CAD S/P percutaneous coronary angioplasty (Primary Dx); Chronic systolic congestive heart failure 10/24/2017 Pharmacy Visit 10/17/2017 Ancillary Radiology Everette Rojas MD Procedure 10/17/2017 Telephone Family Practice Everette Rojas MD Results 10/13/2017 Orders Only Family Practice Everette Rojas MD CAD S/P percutaneous coronary angioplasty (Primary Dx); Chronic systolic congestive heart failure; Smoker; Chronic chest pain 10/10/2017 Pharmacy Visit 10/09/2017 Pharmacy Visit 10/06/2017 Office Visit Family Practice Everette Rojas MD Vision loss of right eye (Primary Dx); Concern about stroke without diagnosis; CAD S/P percutaneous coronary angioplasty; Chronic congestive heart failure, unspecified congestive heart failure type; Smoker; Wheezing; S/P colonoscopy with polypectomy; Family history of colon cancer in mother 10/06/2017 Pharmacy Visit after 09/09/2017 Immunizations Name Dates Previously Given Next Due Pneumococcal Conjugate 08/18/2017 <Unspecified> Family History Medical History Relation Name Comments Cancer Brother Cancer Mother PHOENIX CALDERON Cancer Sister Relation Name Status Comments Brother Father GEORGE HEART PROBLEM ALEJANDRINA (Age 1989) Maternal Grandmother stroke Mother PHOENIX CALDERON Alive COLON CANCER Sister Social History Tobacco Use Types Packs/Day Years Used Date Former Smoker Cigarettes 11/12/1980 - 11/15/2017 Smokeless Tobacco: Never Used Tobacco Cessation: Counseling Given: No Comments: states 10 cigarettes a day,states trying to quit on his own states use to smoke 3 paks a day since 2011 and is down to 10 cigarettes a day Alcohol Use Drinks/Week oz/Week Comments Yes states only drinks one or 2 beers a year Sex Assigned at Date Recorded Not on file Last Filed Vital Signs Vital Sign Reading Time Taken Blood Pressure 137/87 12/01/2017 10:12 AM [employer] Pulse 75 12/01/2017 10:12 AM [employer] Temperature 36.5 C (97.7 F) 12/01/2017 10:12 AM [employer] Respiratory Rate 18 12/01/2017 10:12 AM [employer] Oxygen Saturation 100% 11/17/2017 3:05 PM [employer] Inhaled Oxygen - - Concentration Weight 92.1 kg (203 lb) 12/01/2017 10:12 AM [employer] Height 170.7 cm (5' 7.21") 12/01/2017 10:12 AM [employer] Body Mass Index 31.6 12/01/2017 10:12 AM [employer] Plan of Treatment Health Maintenance Due Date Last Done Comments IMM Influenza Seasonal 07/30/2018Jul to December (>/=19 yrs) Colorectal Cancer Scrn 11/16/2018 11/16/2017, 10/09/2017 Annual (FIT/FOBT) Age 50 to 75 CORONARY ARTERY DISEASE 11/20/2018 11/20/2017 AGE 18 AND UP Procedures Procedure Name Priority Date/Time Associated Diagnosis Comments ELECTROPH, BLD Routine 11/20/2017 Vision loss of right eye Results for this 4:24 PM [employer] procedure are in the results section. BASIC METABOLIC PANEL Routine 11/20/2017 Vision loss of right eye Results for this 4:24 PM [employer] procedure are in the results section. CBC/DIFF Routine 11/20/2017 Vision loss of right eye Results for this 4:24 PM [employer] procedure are in the results section. LIPID PROFILE Routine 11/20/2017 Vision loss of right eye Results for this 4:24 PM [employer] procedure are in the results section. SYPHILIS SCREEN FOR Routine 11/20/2017 Vision loss of right eye Results for this INFECTION 4:24 PM [employer] procedure are in the results section. VITAMIN B12 Routine 11/20/2017 Vision loss of right eye Results for this 4:24 PM [employer] procedure are in the results section. TSH Routine 11/20/2017 Vision loss of right eye Results for this 4:24 PM [employer] procedure are in the results section. C-REACTIVE PROT Routine 11/20/2017 Vision loss of right eye Results for this 4:24 PM [employer] procedure are in the results section. SED RATE Routine 11/20/2017 Vision loss of right eye Results for this 4:24 PM [employer] procedure are in the results section. HEMOGLOBIN A1C Routine 11/20/2017 Vision loss of right eye Results for this 4:24 PM [employer] procedure are in the results section. MAGNESIUM Routine 11/17/2017 Results for this 3:42 AM [employer] procedure are in the results section. CBC/DIFF Routine 11/17/2017 Results for this 3:42 AM [employer] procedure are in the results section. BASIC METABOLIC PANEL Routine 11/17/2017 Results for this 3:42 AM [employer] procedure are in the results section. XRAY CHEST 2 VIEWS STAT 11/16/2017 Cough Results for this 5:06 PM [employer] Influenza procedure are in the SIRS (systemic results section. inflammatory response syndrome) UA CHEMISTRIES Routine 11/16/2017 Results for this 5:05 PM [employer] procedure are in the results section. LEGIONELLA AG, UR STAT 11/16/2017 Results for this 5:05 PM [employer] procedure are in the results section. SPUTUM STAIN / CULTURE STAT 11/16/2017 Results for this 5:05 PM [employer] procedure are in the results section. RAPID INFLUENZA SCREEN STAT 11/16/2017 Results for this 5:05 PM [employer] procedure are in the results section. INFLUENZA RSV SUBTYPE STAT 11/16/2017 Results for this 5:05 PM [employer] procedure are in the results section. BLOOD CULTURE STAT 11/16/2017 Results for this 4:20 PM [employer] procedure are in the results section. BLOOD CULTURE STAT 11/16/2017 Results for this 4:20 PM [employer] procedure are in the results section. PT/INR STAT 11/16/2017 Results for this 4:20 PM [employer] procedure are in the results section. B NATRIURETIC PEPT STAT 11/16/2017 Results for this 4:20 PM [employer] procedure are in the results section. MAGNESIUM STAT 11/16/2017 Results for this 4:20 PM [employer] procedure are in the results section. COMPREHENSIVE METABOLIC STAT 11/16/2017 Results for this PANEL(DBIL NOT INCLUDED) 4:20 PM [employer] procedure are in the results section. OCCULT BLOOD ICT STAT 11/16/2017 Results for this 3:11 PM [employer] procedure are in the results section. 12 LEAD EKG Routine 11/16/2017 Results for this 1:50 PM [employer] procedure are in the results section. TROPONIN I POC Routine 11/16/2017 Results for this 12:58 PM [employer] procedure are in the results section. CBC/DIFF STAT 11/16/2017 Results for this 12:55 PM [employer] procedure are in the results section. BMP POC Routine 11/16/2017 Results for this 12:52 PM [employer] procedure are in the results section. 12 LEAD EKG STAT 11/03/2017 CAD S/P percutaneous Results for this 9:40 AM [employer] coronary angioplasty procedure are in the Chronic systolic results section. congestive heart failure CT HEAD W/O CONTRAST Routine 10/17/2017 Vision loss of right eye Results for this 3:32 PM [employer] Concern about stroke procedure are in the without diagnosis results section. OCCULT BLOOD ICT Routine 10/09/2017 S/P colonoscopy with Results for this 9:38 AM [employer] polypectomy procedure are in the Family history of colon results section. cancer in mother CREATININE Routine 10/09/2017 Vision loss of right eye Results for this 8:39 AM [employer] Concern about stroke procedure are in the without diagnosis results section. after 09/09/2017 Results * SYPHILIS SCREEN FOR INFECTION (11/20/2017 4:24 PM) Treponemal Ab Negative BT DIAGNOSTIC IMMUNOLOGY Final Report Negative [facility] DIAGNOSTIC IMMUNOLOGY Performing Organization Address City/State/Zipcode Phone Number [facility]ST[facility]MMUNOLOG[facility] * HEMOGLOBIN A1C (11/20/2017 4:24 PM) Hemoglobin A1c 6.1 4.3 - 6.1 % BT DI[facility]IC IMMUNOLOGY Est Average Gluc 128.4 mg/dL [facility] DI[facility]IC IMMUNOLOGY Specimen Blood Performing Organization Address [facility] Phone Number [facility] DIAGNOSTIC IMMUNOLOGY * TSH (11/20/2017 4:24 PM) TSH 1.34 0.45 - 3.50 uIU/mL [facility] 3 Specimen Blood Performing Organization Address [facility] Phone Number [facility] * VITAMIN B12 (11/20/2017 4:24 PM) Vitamin B12 297 211 - 911 pg/mL [facility] 3 Specimen Blood Performing Organization Address [facility] Phone Number [facility] * SED RATE (11/20/2017 4:24 PM) Sed Rate 32 (H) <20 mm/Hr [facility] 3 Specimen Blood Performing Organization Address [facility] Phone Number [facility] * LIPID PROFILE (11/20/2017 4:24 PM) Cholesterol 141 0 - 200 mg/dL [facility] 2 Comment: REFERENCE RANGE: Desirable: <200 mg/dL Borderline: 200-240 mg/dL High Risk: >240 mg/dL National Heart, Lung and Blood [place], [facility] Publication No.[id number] February 2001 Triglyceride 104 <150 mg/dL [facility] 2 Comment: REFERENCE RANGE: Normal: <150 mg/dL Borderline High: 150-199 mg/dL High: 200-499 mg/dL Very High: >li=304 mg/dL HDL 24 (L) 40 - 60 mg/dL [facility] 2 LDL 96 mg/dL [facility] 2 Comment: REFERENCE RANGE: Optimal: <100 mg/dL Near Optimal: 100-129 mg/dL Borderline High: 130-159 mg/dL High: 160-189 mg/dL Very High: >at=386 mg/dL Specimen Blood Performing Organization Address [facility] Phone Number [facility] 2 * ELECTROPH, BLD (11/20/2017 4:24 PM) Protein 7.9 g/dL DIAGNOSTIC IMMUNOLOGY Comment Electronically signed out by: CLARITA Whalen M.D.,PhD./[id number] IMMUNOLOGY [id number] (note) INTERPRETATION: The Alpha-2 fraction is increased. This could represent increase in Alpha-2 macroglobulin or haptoglobin among others. These are acute phas reactants. Alpha-2 globulins may also be increased in renal failure. Specimen Blood Performing Organization Address City/State/Zipcode Phone Number [facility] DIAGNOSTIC IMMUNOLOGY * C-REACTIVE PROT (11/20/2017 4:24 PM) C-Reactive Prot 8.74 (H) 0.0 - 0.79 mg/dL [facility] 3 Performing Organization Address City/State/Zipcode Phone Number [facility] * CBC/DIFF (11/20/2017 4:24 PM) Only the most recent of 3 results within the time period is included. WBC 8.3 4.5 - 12.0 K/uL [place] [address] RBC 4.54 (L) 4.60 - 6.20 M/uL [place] [address] Hemoglobin 14.1 14.0 - 18.0 g/dL [place] [address] Hematocrit 41.1 40.0 - 54.0 % [place] [address] MCV 91 82 - 92 fL [place] [address] MCH 31.1 (H) 27.0 - 31.0 pg [place] [address] MCHC 34.3 32.0 - 36.0 g/dL [place] [address] RDW 42.5 35.1 - 43.9 fL [place] [address] Platelet 352 150 - 400 K/uL [place] [address] Neutrophil 67.0 34.0 - 67.9 % [place] [address] Lymphocyte 24.0 21.8 - 50.0 % [facility] 2 Atypical Lymph 2 % [facility] 2 Monocyte 6.0 5.3 - 12.0 % [facility] 2 Basophil None seen 0.2 - 1.2 % [facility] 2 Eosinophil 1.0 0.8 - 5.0 % [place] [address] NRBC 1 /100 WBC [facility] 2 Neutrophil, Abs 5.56 (H) 1.78 - 5.36 K/uL [facility] 2 Lymphocyte, Abs 1.99 1.32 - 3.57 K/uL [facility] 2 Monocyte, Abs 0.50 0.30 - 0.82 K/uL [facility] 2 Basophil, Abs None seen 0.01 - 0.08 K/uL [facility] 2 Eosinophil, Abs 0.08 0.04 - 0.54 K/uL [facility] 2 Large Platelets 1+ [facility] 2 Specimen Blood Performing Organization Address [facility] Phone Number [facility] * BASIC METABOLIC PANEL (11/20/2017 4:24 PM) Only the most recent of 2 results within the time period is included. CO2 28 21 - 31 mmol/L [facility] 2 Chloride 100 98 - 107 mmol/L [facility] 2 Potassium 3.8 3.5 - 5.1 mmol/L [facility] 2 Sodium 138 136 - 145 mmol/L [facility] 2 Glucose 126 (H) 70 - 99 mg/dL [facility] 2 Urea Nitrogen 10 7 - 25 mg/dL [place] [address] Creatinine 1.11 0.60 - 1.30 mg/dL [facility] 2 Anion Gap 10 [facility] 2 Calcium 8.9 8.6 - 10.3 mg/dL [facility] 2 GFR, Estimated >60 mL/min/1.73 m2 [facility] 2 GFR, Estim, Afr-Am >60 mL/min/1.73 m2 [facility] 2 Specimen Blood Performing Organization Address [facility] Phone Number [facility] * MAGNESIUM (11/17/2017 3:42 AM) Only the most recent of 2 results within the time period is included. Magnesium 2.4 1.8 - 2.4 mg/dL [facility] 2 Performing Organization Address [facility] Phone Number [employer] [facility] * XRAY CHEST 2 VIEWS (11/16/2017 5:06 PM) Impressions Performed At IMPRESSION: SMS No acute thoracic abnormality. Streaky opacities in the lung bases statistically represent atelectasis. If the report is "FINALIZED" it indicates that the attending/staff radiologist has reviewed the images and agrees with the resident's interpretation. Dictated By: Fabian London MD, 11/16/2017 5:14 PM I have reviewed the study and agree with the findings in this report. Signed By: Ventura Beltran MD, 11/16/2017 5:26 PM Narrative Performed At EXAMINATION:XRAY CHEST 2 VIEWS SMS INDICATION: Shortness of breath COMPARISON:None FINDINGS: TUBES and LINES:None. LUNGS:Lungs are well inflated.Lungs are clear. There is no evidence of pneumonia or pulmonary edema. PLEURA:No pleural effusion or pneumothorax. HEART AND MEDIASTINUM:The cardiomediastinal silhouette is unremarkable. BONES AND SOFT TISSUES:No acute osseous lesion.Soft tissues are unremarkable. UPPER ABDOMEN: No free air under the diaphragm. Procedure Note Claudette, Surya/Mammog In - 11/16/2017 5:31 PM [employer] EXAMINATION: XRAY CHEST 2 VIEWS INDICATION: Shortness of [...] By: Ventura Beltran MD, 11/16/2017 5:26 PM Performing Organization Address [facility] Phone Number SMS * INFLUENZA RSV SUBTYPE (11/16/2017 5:05 PM) Influenza A Not detected BT MOLECULAR PATHOLOGY Influenza A,H1 Not detected BT MOLECULAR PATHOLOGY Influenza A,H3 Not detected BT MOLECULAR PATHOLOGY Flu A [id number] Not detected BT MOLECULAR PATHOLOGY Influenza B PCR Detected BT MOLECULAR PATHOLOGY RSV A Not detected BT MOLECULAR PATHOLOGY RSV B Not detected BT MOLECULAR This test utilizes FDA cleared PATHOLOGY Verigene Respiratory Virus Plus Nucleic Acid Test from [employer]. This test is a qualitative multiplexed test for the detection of Influenza A, Influenza A H1, Influenza A H3, Influenza A 2009 H1N1, Influenza B, RSV A and RSV B. Performing Organization Address [place]/[facility] Phone Number [facility] BT MOLECULAR PATHOLOGY * RAPID INFLUENZA SCREEN (11/16/2017 5:05 PM) Spec Description Nasal BT MICROBIOLOGY Order Comments None SUNQUEST USE ONLY Direct Exam Negative for BT MICROBIOLOGY Influenza A and B by EIA Report Status Final 11/16/2017 BT MICROBIOLOGY Specimen Nasal - Nasopharyngeal Swab Performing Organization Address City/[facility]/Zipcode Phone Number [employer] BT MICROBIOLOGY SUNQUEST USE ONLY * UA CHEMISTRIES (11/16/2017 5:05 PM) Color Lolly [facility] 3 Clarity Hazy [facility] 3 Spec [place] 1.029 1.001 - 1.035 [facility] 3 pH 5.0 5 - 8 [facility] 3 Protein 3+ (A) NEG [facility] 3 Glucose Negative NEG [facility] 3 Ketone 1+ (A) NEG [facility] 3 Bilirubin Negative NEG [facility] 3 Nitrate Negative NEG [facility] 3 Urobilinogen 2.0 (H) 0.2 - 1.0 EU/dL [facility] 3 Leukocyte Negative NEG [facility] 3 Blood 2+ (A) NEG [facility] 3 RBC 4 0 - 4 /HPF [facility] 3 WBC 5 0 - 5 /HPF [facility] 3 Epithelial Cell 2 /HPF [facility] 3 Mucous Present [facility] 3 Performing Organization Address [facility] Phone Number [employer] [facility] * LEGIONELLA AG, UR (11/16/2017 5:05 PM) Legionella Ag, Ur Negative NEG BT DIAGNOSTIC IMMUNOLOGY Specimen Urine Performing Organization Address [facility]/Zipcode Phone Number [employer] DIAGNOSTIC IMMUNOLOGY * SPUTUM STAIN / CULTURE (11/16/2017 5:05 PM) Spec Description Sputum BT MICROBIOLOGY Order Comments None BT MICROBIOLOGY Gram Stain 2+ WBC's seen BT MICROBIOLOGY 1+ Epithelial cells Mixed bacterial morphotypes seen Culture 4+ Normal iliana BT MICROBIOLOGY Report Status Final 11/19/2017 BT MICROBIOLOGY Specimen Sputum - SPUTUM Performing Organization Address [facility] Phone Number [employer] MICROBIOLOGY * COMPREHENSIVE METABOLIC PANEL(DBIL NOT INCLUDED) (11/16/2017 4:20 PM) Albumin 3.6 3.4 - 5.0 g/dL [facility] 1 Calcium 8.4 (L) 8.50 - 10.20 mg/dL [facility] 1 CO2 22.6 21 - 32 mmol/L [facility] 1 Chloride 95 (L) 98 - 107 mmol/L [facility] 1 Creatinine 1.32 (H) 0.60 - 1.30 mg/dL [facility] 1 Glucose 91 70 - 99 mg/dL [facility] 1 Alk Phos 105 45 - 117 U/L [facility] 1 Potassium 4.1 3.50 - 5.10 mmol/L [facility] 1 Sodium 131 (L) 136 - 145 mmol/L [facility] 1 ALT 21 12 - 78 U/L [facility] 1 AST 32 15 - 37 U/L [facility] 1 Urea Nitrogen 29 (H) 7 - 18 mg/dL [facility] 1 T Bilirubin 0.7 0.2 - 1.0 mg/dL [facility] 1 T Protein 7.9 6.4 - 8.2 g/dL [facility] 1 GFR, Estimated 57 mL/min/1.73 m2 [facility] 1 GFR, Estim, Afr-Am >60 mL/min/1.73 m2 [facility] 1 Anion Gap 13.4 [facility] 1 Specimen Blood Performing Organization Address [facility] Phone Number [facility] * B NATRIURETIC PEPT (11/16/2017 4:20 PM) B Natriuretic Pept 80 <101 pg/mL [facility] 4 Specimen Blood Performing Organization Address [facility] Phone Number [facility] 4 * PT/INR (11/16/2017 4:20 PM) PT 13.8 11.8 - 15.0 Seconds [facility] 3 INR 1.1 [facility] 3 SUGGESTED THERAPEUTIC RANGES: INR 2.0-3.0 for MODERATE INTENSITY ANTICOAGULATION INR 2.5-3.5 for HIGH INTENSITY ANTICOAGULATION Specimen Blood Performing Organization Address [facility] Phone Number MISYS BT MAIN-STATION 3 * BLOOD CULTURE (11/16/2017 4:20 PM) Only the most recent of 2 results within the time period is included. Spec Description Blood BT MICROBIOLOGY Left arm Order Comments None BT MICROBIOLOGY Culture No growth 5 days BT MICROBIOLOGY Report Status Final 11/21/2017 BT MICROBIOLOGY Specimen Blood bag - BLOOD Performing Organization Address [facility] Phone Number MISYS BT MICROBIOLOGY * OCCULT BLOOD ICT (11/16/2017 3:11 PM) Only the most recent of 2 results within the time period is included. Occult Blood ICT Negative NEG BT MICROBIOLOGY Specimen Stool Performing Organization Address [facility] Phone Number [place] BT MICROBIOLOGY * 12 LEAD EKG (11/16/2017 1:50 PM) 12 LEAD EKG FOR [facility] Test Date:2017-11-16 Pat Name: DENIS CONROY Department: Room: Gender: M Composition Instructor: [id number] :1965-0 6-10 Requested By: Order Number: Yazmin zhao MD: Carmen Figueroa M.D. Measurements Intervals [place] Rate: 119 P: 54 HI: 151 QRS: 70 QRSD: 83 T:65 QT: 317 QTc:447 Interpretive Statements SINUS TACHYCARDIA POSSIBLE LEFT ATRIAL ENLARGEMENT ANTEROSEPTAL MYOCARDIAL INFARCTION, OF INDETERMINATE AGE Electronically Signed On 11-16-17 14:02:15 SPECIAL DEPUTY SHERIFF by Carmen Figueroa M.D. Performing Organization Address [facility] Phone Number SMS * TROPONIN I POC (11/16/2017 12:58 PM) Troponin POC 0.02 0.00 - 0.08 ng/mL BT MAIN-STATION 1 Performing Organization Address [facility] Phone Number MISYS BT MAIN-STATION 1 * BMP POC (11/16/2017 12:52 PM) CO2 POC 22 21 - 32 mmol/L BT MAIN-STATION 1 Chloride POC 96 (L) 98 - 107 mmol/L BT MAIN-STATION 1 Potassium POC 3.7 3.50 - 5.10 mmol/L BT MAIN-STATION 1 Sodium POC 135 (L) 136 - 145 mmol/L BT MAIN-STATION 1 Glucose POC 117 (H) 74 - 106 mg/dL BT MAIN-STATION 1 Urea Nitrogen POC 30 (H) 7 - 18 mg/dL BT MAIN-STATION 1 Creatinine POC 1.4 (H) 0.6 - 1.3 mg/dL BT MAIN-STATION 1 Calcium Ionized POC 1.06 (L) 1.15 - 1.29 mmol/L BT MAIN-STATION 1 Hemoglobin POC 19.0 (H) 14.0 - 18.0 g/dL BT MAIN-STATION 1 Hematocrit POC 56.0 (H) 40.0 - 54.0 % BT MAIN-STATION 1 GFR, Estimated 53 mL/min/1.73 m2 BT MAIN-STATION 1 GFR, Estim, Afr-Am >60 mL/min/1.73 m2 BT MAIN-STATION 1 Performing Organization Address City/State/Zipcode Phone Number MISYS BT MAIN-STATION 1 * 12 LEAD EKG (11/03/2017 9:40 AM) 12 LEAD EKG FOR CHP [facility] Test Date:2017-11-03 Pat Name: DENIS CONROY Department: Room: Gender: Composition Instructor: [id number] :1965-0 6-10 Requested By: Order Number: Yazmin zhao MD: Carmen Figueroa M.D. Measurements Intervals [place] Rate: 71 P:51 HI: 152 QRS: 59 QRSD: 96 T:89 QT: 418 QTc:454 Interpretive Statements Normal sinus rhythm Anterior infarct, age undetermined Abnormal ECG Electronically Signed On 11-03-17 11:10:14 SPECIAL DEPUTY SHERIFF by Carmen Figueroa M.D. Performing Organization Address [facility] Phone Number SMS * CT HEAD W/O CONTRAST (10/17/2017 3:32 PM) Impressions Performed At IMPRESSION: SMS 1.Minimal right superior/anterior frontal lobe cortico-subcortical encephalomalacia perhaps sequela from remote trauma. Persistent prior studies if available is advised 2.Otherwise no intracranial abnormalities, particularly no hemorrhage or acute cortical infarcts. I have reviewed the study and agree with the findings in this report. Signed By: Alexia Mantilla MD, 10/17/2017 4:14 PM Narrative Performed At Exam : Head CT without contrast [facility] History: Smoker/CAD p/w h/o right eye vision [...] or chronic cortical insults. Dural sinuses:No abnormal densities. Sellar/Suprasellar region: Intact. Skull base and Craniocervical junction: Intact. Procedure Note Interface, Rad/Mammog In - 10/17/2017 4:19 PM SPECIAL DEPUTY SHERIFF Exam : Head CT without contrast History: Smoker/CAD [...] By: Alexia Mantilla MD, 10/17/2017 4:14 PM Performing Organization Address [facility] Phone Number SMS * CREATININE (10/09/2017 8:39 AM) Creatinine 1.30 0.60 - 1.30 mg/dL BT MAIN-STATION 3 GFR, Estimated 58 mL/min/1.73 m2 BT MAIN-STATION 3 GFR, Estim, Afr-Am >60 mL/min/1.73 m2 BT MAIN-STATION 3 Specimen Blood Performing Organization Address [facility] Phone Number MISYS BT MAIN-STATION 3 after 09/09/2017
--- OUTSIDE RECORDS SUMMARY | 2019-07-06 15:05 | XMS REPORT ---
Author Author Josefa Nick Organization [employer] Address Unknown Phone Unavailable Care Team Providers Care Vp Ad Sales West Name Role Phone Josefa Nick CP Unavailable Allergies, Adverse Reactions, Alerts Substance Reaction Event Type statins Muscle weakness Drug Allergy Penicillin rash Drug Allergy [place] anaphylaxis Drug Allergy Tagamet HB Shortness of breath Drug Allergy Lisinopril Hypotension Drug Allergy Lipitor Weakness & muscle aches Drug Allergy Encounters Encounter Location Date Unknown Josefa Nick MD [place] May 27, 2014 Unknown Josefa Nick MD [place] Jun 10, 2014 Problems Problem Type Condition ICD-9 Code Onset Dates Condition Status Problem Abnormal EKG 794.31 Active Problem CAD, [place] Coronary Artery 414.01 Active Problem Hypercholesterolemia 272.0 Active Problem Atheroscler of [place] artery of both legs with intermit claudication 440.21 Active Assessment Hypercholesterolemia 272.0 Active Problem Shortness of breath 786.05 Active Problem Ischemic cardiomyopathy 414.8 Active Problem PTCA Status V45.82 Active Problem ND Acute myocardial infarction of anterolateral wall, initial episode of care 410.01 Active Problem Angina 413.9 Active Problem ND Old myocardial infarction 412 Active Assessment Abnormal EKG 794.31 Active Assessment PTCA Status V45.82 Active Assessment Angina 413.9 Active Assessment ND Old myocardial infarction 412 Active Assessment Mitral valve disorders 424.0 Active Assessment Ischemic cardiomyopathy 414.8 Active Assessment CAD, [place] Coronary Artery 414.01 Active Assessment Shortness of breath 786.05 Active Assessment Atheroscler of [place] artery of both legs with intermit claudication 440.21 Active Problem Mitral valve disorders 424.0 Active Medications Medication Code System Code Instructions Start Date End Date Status Dosage Protonix MEDISPAN [address]-29 40 mg Orally Once a day Active 1 tablet Plavix MEDISPAN [address]-00 75 mg Orally Once a day Active 1 tablet Livalo MEDISPAN [address]-28 4 MG Orally Once a day Jun 10, 2014 Active 1 tablet Coreg MEDISPAN [address]-85 3.125 MG Orally Twice a day Jun 10, 2014 Active 1 tablet with food Social History Social History Element Qualifiers Date Reported Smoking . Status Current Smoker 1 pack per day, Completed counseling for quiting smoking Yes Jul 03, 2014 Alcohol Use No. Jul 03, 2014 Alcohol Screening: No. Jul 03, 2014 Marital Status: . Jul 03, 2014 Do you drink alcohol? No. 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
--- OUTSIDE RECORDS SUMMARY | 2019-07-06 15:05 | XMS REPORT ---
Author Author Josefa Nick Organization [employer] Address Unknown Phone Unavailable Care Team Providers Care Trucking Contractor Name Role Phone Josefa Nick CP Unavailable Allergies, Adverse Reactions, Alerts Substance Reaction Event Type statins Muscle weakness Drug Allergy Penicillin rash Drug Allergy [place] anaphylaxis Drug Allergy Tagamet HB Shortness of breath Drug Allergy Lisinopril Hypotension Drug Allergy Lipitor Weakness & muscle aches Drug Allergy Encounters Encounter Location Date Unknown Josefa Nick MD [place] Jul 03, 2014 Unknown Josefa Nick MD [place] Oct 02, 2014 Unknown Josefa Nick MD [place] May 27, 2014 Unknown Josefa Nick MD [place] Jun 10, 2014 Unknown Josefa Nick MD [place] Dec 09, 2014 Problems Problem Type Condition ICD-9 Code Onset Dates Condition Status Problem Hypercholesterolemia 272.0 Active Problem DE Acute myocardial infarction of anterolateral wall, initial episode of care 410.01 Active Problem CAD, [place] Coronary Artery 414.01 Active Problem Atheroscler of [place] artery of both legs with intermit claudication 440.21 Active Problem Shortness of breath 786.05 Active Problem Ischemic cardiomyopathy 414.8 Active Problem PTCA Status V45.82 Active Problem Mitral valve disorders 424.0 Active Problem Angina 413.9 Active Problem DE Old myocardial infarction 412 Active Assessment Abnormal EKG 794.31 Active Assessment PTCA Status V45.82 Active Assessment Hypercholesterolemia 272.0 Active Assessment Atheroscler of [place] artery of both legs with intermit claudication 440.21 Active Assessment Ischemic cardiomyopathy 414.8 Active Assessment Mitral valve disorders 424.0 Active Assessment CAD, [place] Coronary Artery 414.01 Active Assessment DE Old myocardial infarction 412 Active Problem Abnormal EKG 794.31 Active Medications Medication Code System Code Instructions Start Date End Date Status Dosage Livalo MEDISPAN [address]-59 4 MG Orally Once a day Jun 10, 2014 Active 1 tablet Losartan Potassium MEDISPAN [address]-20 25 MG Orally Once a day Jul 03, 2014 Active 1 tablet Coreg MEDISPAN [address]-49 3.125 MG Orally Twice a day Jun 10, 2014 Active 1 tablet with food Plavix [facility] [address]-80 75 mg Orally Once a day Active 1 tablet Protonix [facility] [address]-91 40 mg Orally Once a day Active 1 tablet Social History Social History Element Qualifiers Date Reported Smoking . Status Current Smoker 1 pack per day, Completed counseling for quiting smoking Yes February 12, 2015 Alcohol Use No. February 12, 2015 Alcohol Screening: No. February 12, 2015 Marital Status: . February 12, 2015 Do you drink alcohol? No. 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
--- OUTSIDE RECORDS SUMMARY | 2019-07-06 15:05 | XMS REPORT ---
Author Author Josefa Nick Organization [employer] Address Unknown Phone Unavailable Care Team Providers Care Manager Track Name Role Phone Josefa Nick CP Unavailable Allergies, Adverse Reactions, Alerts Substance Reaction Event Type statins Muscle weakness Drug Allergy Penicillin rash Drug Allergy [place] anaphylaxis Drug Allergy Tagamet HB Shortness of breath Drug Allergy Lisinopril Hypotension Drug Allergy Lipitor Weakness & muscle aches Drug Allergy Encounters Encounter Location Date Unknown Josefa Nick MD [place] May 27, 2014 Problems Problem Type Condition ICD-9 Code Onset Dates Condition Status Problem Mitral valve disorders 424.0 Active Problem Hypercholesterolemia 272.0 Active Problem Abnormal EKG 794.31 Active Problem Shortness of breath 786.05 Active Problem Angina 413.9 Active Problem Atheroscler of [place] artery of both legs with intermit claudication 440.21 Active Problem RI Acute myocardial infarction of anterolateral wall, initial episode of care 410.01 Active Problem CAD, [place] Coronary Artery 414.01 Active Problem RI Old myocardial infarction 412 Active Problem PTCA Status V45.82 Active Assessment Hypercholesterolemia 272.0 Active Assessment RI Old myocardial infarction 412 Active Assessment Mitral valve disorders 424.0 Active Assessment Shortness of breath 786.05 Active Assessment Atheroscler of [place] artery of both legs with intermit claudication 440.21 Active Assessment PTCA Status V45.82 Active Assessment Abnormal EKG 794.31 Active Assessment CAD, [place] Coronary Artery 414.01 Active Medications Medication Code System Code Instructions Start Date End Date Status Dosage Plavix MEDISPAN [address]-01 75 mg Orally Once a day Active 1 tablet Protonix MEDISPAN [address]-16 40 mg Orally Once a day Active 1 tablet Social History Social History Element Qualifiers Date Reported Smoking . Status Current Smoker 1 pack per day, Completed counseling for quiting smoking Yes Jun 10, 2014 Alcohol Use No. Jun 10, 2014 Alcohol Screening: No. Jun 10, 2014 Marital Status: . Jun 10, 2014 Do you drink alcohol? No. Jun 10, 2014 Vital Signs Date/Time: May 27, 2014 Weight 192 lbs Height 68 in Temperature 96.4 F Cardiac Monitoring Heart Rate 69 /min Blood Pressure Diastolic 60 mm Hg Blood Pressure Systolic 120 mm Hg Results Electrocardiogram (ECG) Summary Purpose eClinicalWorks Submission
--- OUTSIDE RECORDS SUMMARY | 2019-07-06 15:05 | XMS REPORT ---
Author Author Josefa Nick Organization [employer] Address Unknown Phone Unavailable Care Team Providers Care Utility Hand Name Role Phone Josefa Nick CP Unavailable Allergies, Adverse Reactions, Alerts Substance Reaction Event Type statins Muscle weakness Drug Allergy Penicillin rash Drug Allergy [place] anaphylaxis Drug Allergy Tagamet HB Shortness of [...] Condition Status Problem Hypercholesterolemia 272.0 Active Problem CA Acute myocardial infarction of anterolateral wall, initial episode of care 410.01 Active Problem CAD, [place] Coronary Artery 414.01 Active Problem Atheroscler of [place] artery of both legs with intermit claudication 440.21 Active Problem Shortness of breath 786.05 Active Problem Ischemic cardiomyopathy 414.8 Active Problem PTCA Status V45.82 Active Problem Mitral valve disorders 424.0 Active Problem Angina 413.9 Active Problem CA Old myocardial infarction 412 Active Assessment Hypercholesterolemia 272.0 Active Assessment PTCA Status V45.82 Active Assessment CA Old myocardial infarction 412 Active Assessment Mitral valve disorders 424.0 Active Assessment CAD, [place] Coronary Artery 414.01 Active Assessment Abnormal EKG 794.31 Active Problem Abnormal EKG 794.31 Active Medications Medication Code System Code Instructions Start Date End Date Status Dosage Plavix [facility] [address]-20 75 mg Orally Once a day Active 1 tablet Famotidine [facility] [address]-96 40 mg Orally Once a day Active 1 tablet at bedtime Carvedilol [facility] [address]-00 3.125 MG Orally Twice a day Active 1 tablet Losartan Potassium [facility] [address]-64 25 MG Orally Once a day Jul 03, 2014 Active 1 tablet Hyoscyamine Sulfate CR [facility] [address]-41 0.375 MG Orally Twice a day Active 1 tablet Pantoprazole Sodium [facility] [address]-60 40 mg Orally Once a day Active 1 [address] [facility] 02[address]777 250 MG Orally Twice a day Active 1 capsule Social History Social History Element Qualifiers Date Reported Smoking . Status Current Smoker 1 pack per day, Completed counseling for quiting smoking Yes February 12, 2015 Alcohol Use No. February 12, 2015 Alcohol Screening: No. February 12, 2015 Marital Status: . February 12, 2015 Do you drink alcohol? No. 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
--- OUTSIDE RECORDS SUMMARY | 2019-07-06 15:05 | XMS REPORT ---
Author [facility] Address Unknown Phone Unavailable Care Team Providers Care Cop Examiner Name Role Phone SULEMAN VENCES Unavailable Unavailable Problems This patient has no known problems. Allergies, Adverse Reactions, Alerts This patient has no known allergies or adverse reactions. Medications This patient has no known medications. Encounters Start Date/Time End Date/Time Encounter Type Admission Type Attending [facility] Care Department Encounter ID 2018-11-23 00:00:00 2018-11-23 00:00:00 Outpatient [facility] [id number] 2018-01-17 00:00:00 2018-01-17 00:00:00 Outpatient [facility] [id number] 2017-12-13 00:00:00 2017-12-13 00:00:00 Outpatient [facility] [id number] 2017-12-12 00:00:00 2017-12-12 00:00:00 Outpatient [facility] [id number] 2017-12-01 10:12:17 2017-12-01 10:12:17 Outpatient [facility] [id number] 2017-12-01 00:00:00 2017-12-01 00:00:00 Outpatient [facility] [id number] 2017-11-29 09:43:32 2017-11-29 09:43:32 Outpatient [facility] [id number] 2017-11-29 09:03:24 2017-11-29 09:03:24 Outpatient [facility] [id number] 2017-11-27 08:28:14 2017-11-27 08:28:14 Outpatient [facility] [id number] 2017-11-20 16:08:51 2017-11-20 16:08:51 Outpatient [facility] [id number] 2017-11-20 14:19:06 2017-11-20 14:19:06 Outpatient [facility] [id number] 2017-11-16 16:48:23 2017-11-16 16:48:23 Outpatient [facility] [id number] 2017-11-16 10:57:39 2017-11-16 10:57:39 Outpatient [facility] [id number] 2017-11-03 09:33:00 2017-11-03 09:33:00 Outpatient [facility] [id number] Results Test Description Test Time Test Comments Text Results Atomic Results Result Comments VQ LUNG SCAN VENT PERFUSION 2018-04-13 17:12:00 [place] [address] Patient Name: NELY VAZQUEZ MR #: [id number] : 1965 Age/Sex: 53/M Req #: [id number] Adm Physician: Ordered by: SULEMAN VENCES MD Report #: [id number] Location: [place] Room/Bed: Procedure: [id number] NM/VQ LUNG SCAN VENT PERFUSION Exam Date: Exam Time: REPORT STATUS: Signed Ventilation/perfusion lung scan Clinical Information: 53 M with COPD and acute chest pain Comparison: None Discussion: Xenon- 133 gas 20 mCi was administered via inhalation. Dynamic images of the lungs in the posterior projection were obtained through single breath, equilibrium, and washout phases. Distribution of tracer activity appears physiologic throughout the lungs.. There are no segmental ventilatory defects. Washout of tracer is diffusely delayed with no evidence of air trapping. Perfusion images of the lungs were obtained in multiple projections following intravenous administration of approximately 6.6 mCi of Tc-99m MAA. Distribution of tracer appears physiologic throughout the lungs. The contours of the lungs are well demarcated. There are no segmental perfusion defects of any size. The cardiomediastinal silhouette is unremarkable. Impression: 1. Scan findings represent a VERY LOW probability for acute pulmonary embolic disease based on the PIOPED II criteria. 2. Ventilation findings consistent with known obstructive lung disease. Signed by: Dr. Prakash Quinones M.D. on 04/13/2018 5:14 PM Dictated By: PRAKASH QUINONES MD 13 Transcribed By: MADISON on 04/13/181713 COPY TO: SULEMAN VENCES MD MRI ORBIT WO [place] [address] Patient Name: NELY VAZQUEZ MR #: [id number] : 1965 Age/Sex: 52/M Req #: [id number] Adm Physician: Ordered by: SULEMAN VENCES MD Report #: [id number] Location: MRI Room/Bed: Procedure: [id number] MRI/MRI ORBIT WO Exam Date: Exam Time: REPORT STATUS: Signed Examination: MRI BRAIN AND ORBITS WITHOUT CONTRAST History: Headache. Eye pain. Comparison studies: None Technique: Brain: Sagittal T2; axial DWI, T2 FSE, GRE; at the time of scan, the patient could not continue and therefore axial FLAIR and post contrast imaging through the brain and coronal STIR and postcontrast axial, sagittal and coronal imaging through the orbits could not performed. Orbits: Noncontrast axial and coronal T1, axial T2. Patient was to return for postcontrast imaging, but resulted in many failed attempts at contacting patient to reschedule. Intravenous contrast: None. Findings: Brain: Scalp: No abnormal signal. No masses. Bone marrow: Normal in signal intensity. Brain volume: Adequate for age. No volume loss. Ventricles: Normal in size and configuration. No hydrocepha annabel. Parenchyma: No abnormal signal intensities. No masses, hemorrhage, acute or chronic vascular insults. Suprasellar region: No abnormalities. Craniocervical junction: No abnormalities. The foramen magnum is patent. No Chiari malformations. Vessels: Normal flow-voids in the arteries and sinuses. Orbits: Globes: Normal in size and morphology. Lenses: Normal in morphology and size without abnormal signal. Posterior chambers: Clear. Extraocular muscles: Normal in size and symmetric. Intra- or extraconal abnormalities: None. Optic nerves and optic chiasm: Normal in size and morphology. Cavernous sinuses: Symmetric. IMPRESSION: Brain: No intracranial abnormalities. Orbits: No abnormalities. Signed by: Dr. Azucena Roche M.D. on 03/07/2018 12:36 PM Dictated By: AZUCENA ALMODOVAR MD 1236 Transcribed By: MADISON on 03/07/18 1236 COPY TO: SULEMAN VENCES MD MRI BRAIN WO [place] [address] Patient Name: NELY VAZQUEZ MR #: [id number] : 1965 Age/Sex: 52/M Req #: [id number] Adm Physician: Ordered by: SULEMAN VENCES MD Report #: [id number] Location: MRI Room/Bed: Procedure: [id number] MRI/MRI BRAIN WO Exam Date: Exam Time: REPORT STATUS: Signed Examination: MRI BRAIN AND ORBITS WITHOUT CONTRAST History: Headache. Eye pain. Comparison studies: None Technique: Brain: Sagittal T2; axial DWI, T2 FSE, GRE; at the time of scan, the patient could not continue and therefore axial FLAIR and post contrast imaging through the brain and coronal STIR and postcontrast axial, sagittal and coronal imaging through the orbits could not performed. Orbits: Noncontrast axial and coronal T1, axial T2. Patient was to return for postcontrast imaging, but resulted in many failed attempts at contacting patient to reschedule. Intravenous contrast: None. Findings: Brain: Scalp: No abnormal signal. No masses. Bone marrow: Normal in signal intensity. Brain volume: Adequate for age. No volume loss. Ventricles: Normal in size and configuration. No hydrocepha annabel. Parenchyma: No abnormal signal intensities. No masses, hemorrhage, acute or chronic vascular insults. Suprasellar region: No abnormalities. Craniocervical junction: No abnormalities. The foramen magnum is patent. No Chiari malformations. Vessels: Normal flow-voids in the arteries and sinuses. Orbits: Globes: Normal in size and morphology. Lenses: Normal in morphology and size without abnormal signal. Posterior chambers: Clear. Extraocular muscles: Normal in size and symmetric. Intra- or extraconal abnormalities: None. Optic nerves and optic chiasm: Normal in size and morphology. Cavernous sinuses: Symmetric. IMPRESSION: Brain: No intracranial abnormalities. Orbits: No abnormalities. Signed by: Dr. Azucena Roche M.D. on 03/07/2018 12:36 PM Dictated By: AZUCENA ALMODOVAR MD 1236 Transcribed By: MADISON on 03/07/18 1236 COPY TO: SULEMAN EVNCES MD
--- OUTSIDE RECORDS SUMMARY | 2019-07-06 15:09 | XMS REPORT | Continuity of Care Document ---
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 Name Role Phone [employer] Information Collect Unavailable Unavailable Problems Problem Status Onset Date Classification Date Reported Comments Source Age-related nuclear cataract of both eyes Active 11/29/2017 Problem 09/10/2018 [facility] Blindness right eye category 5, normal vision left eye Active 11/29/2017 Problem 09/10/2018 [facility] Transient visual loss of both eyes Active 11/27/2017 Problem 09/10/2018 [facility] Elevated C-reactive protein (CRP) Active 11/27/2017 Problem 09/10/2018 [facility] Elevated erythrocyte sedimentation rate Active 11/27/2017 Problem 09/10/2018 [facility] 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 11/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 Problem 09/10/2018 [facility] Chronic systolic congestive heart failure Active 10/13/2017 Problem 09/10/2018 [facility] Vision loss of right eye Active 10/06/2017 Problem 09/10/2018 [facility] CAD S/P percutaneous coronary angioplasty Active 10/06/2017 Problem 09/10/2018 [facility] Chronic congestive heart failure Active 10/06/2017 Problem 09/10/2018 [facility] Smoker Active 10/06/2017 Problem 09/10/2018 [facility] Concern about stroke without diagnosis Active 10/06/2017 Problem 09/10/2018 [facility] S/P colonoscopy with polypectomy Active 10/06/2017 Problem 09/10/2018 [facility] Family history of colon cancer in mother Active 10/06/2017 Problem 09/10/2018 [facility] Wheezing Active 10/06/2017 Problem 09/10/2018 [facility] Abnormal EKG Active Diagnosis 09/23/2015 Josefa Nick CAD, [place] Coronary Artery Active Problem 09/23/2015 Josefa Nick Hypercholesterolemia Active Problem 09/23/2015 Josefa Nick Atheroscler of [place] artery of both legs with intermit claudication Active Problem 09/23/2015 Josefa Nick Shortness of breath Active Problem 09/23/2015 Josefa Nick Ischemic cardiomyopathy Active Problem 09/23/2015 Josefa [place] PTCA Status Active Problem 09/23/2015 Josefa [place] Acute myocardial infarction of anterolateral wall, initial episode of care Active Problem 09/23/2015 Josefa [place] Angina Active Problem 09/23/2015 Josefa [place] Old myocardial infarction Active Problem 09/23/2015 Josefa [place] Mitral valve disorders Active Problem 09/23/2015 Josefa [place] Cough Active Problem 09/10/2018 [facility] Influenza Active Problem 09/10/2018 [facility] Tachycardia Active Problem 09/10/2018 [facility] Tachypnea Active Problem 09/10/2018 [facility] SIRS (systemic inflammatory response syndrome) Active Problem 09/10/2018 [facility] Medications Medication Details Route Status Patient Instructions Ordering Provider Order Date Source Latanoprost 0.005 % Eye Drops Xalatan 0.005 % Eye Drops Instill 1 Drop in right eye at bedtime nightly. Active 11/27/2017 [facility] Ibuprofen 800 Mg Tablet Take 800 mg by mouth every 8 hours as needed. Oral No Longer Active 11/17/2017 [facility] Oseltamivir 75 Mg Capsule Take 1 capsule by mouth 2 times daily for 5 days. Oral No Longer Active 11/17/2017 [facility] Promethazine 25 Mg Tablet Take 1 tablet by mouth every 6 hours as needed for up to 7 days for Nausea or Vomiting. Oral No Longer Active 11/17/2017 [facility] Albuterol Sulfate Hfa 90 McG/Actuation Aerosol Inhaler Inhalation Inactive 10/06/2017 [facility] Peg 3350-Electrolytes 236 Gram-22.74 Gram-6.74 Gram-5.86 Gram Solution Add lukewarm drinking water to the fill tanvi (4 liters) and shake. Drink as directed by your doctor.. Active 10/06/2017 [facility] Albuterol Sulfate Hfa 90 McG/Actuation Aerosol Inhaler Inhale 2 Puffs by mouth 4 times daily as needed for Wheezing or Shortness of Breath. Inhalation Active 10/06/2017 [facility] Losartan Potassium 1 tablet Orally Active 25 MG Orally Once a day [facility] 07/03/2014 [facility] [place] Livalo 1 tablet Orally Active 4 MG Orally Once a day [facility] 06/10/2014 [facility] Rjshahrzad Coreg 1 tablet with food Orally Active 3.125 MG Orally Twice a day [place] 06/10/2014 Josefa Nick Protonix 1 tablet Orally Active 40 mg [facility]ally [facility] [place] [place] Plavix 1 tablet Orally Active 75 mg Orally Once a day [facility] [place] Famotidine 1 tablet at bedtime Orally Active 40 mg Orally Once a day [facility] [place] Carvedilol 1 tablet Orally Active 3.125 MG Orally Twice a day [facility] [place] Hyoscyamine Sulfate CR 1 tablet Orally Active 0.375 MG Orally Twice a day [facility] [place] Pantoprazole Sodium 1 tablet Orally Active 40 mg Orally Once a day [facility] [place] Florastor 1 capsule Orally Active 250 MG Orally Twice a day [facility] [place] Aspirin 81 Mg Chewable Tablet Chew and swallow 81 mg by mouth daily. Active [facility] Carvedilol 3.125 Mg Tablet Take 12.5 mg by mouth 2 times daily (with meals) . Oral Active [facility] Clopidogrel 75 Mg Tablet Take 75 mg by mouth daily. Oral Active [facility] Losartan 100 Mg Tablet Take 100 mg by mouth daily. Oral Active [facility] Nitroglycerin 0.[address] 0.4 mg under tongue every 5 minutes as needed Dissolve 1 tablet under the tongue every 5 minutes as needed, up to 3 times. If chest pain persists, call 911. Sublingual Active [facility] ranolazine (RANEXA) 500 mg extended release tablet Take 500 mg by mouth 2 times daily. Oral Active [facility] Isosorbide Mononitrate Er 30 Mg Tablet,Extended Release 24 Hr Take 30 mg by mouth daily. Oral Active [facility] Pravastatin 40 Mg Tablet Take 40 mg by mouth at bedtime nightly. Oral Active [place] [employer] Allergies, Adverse Reactions, Alerts Substance Category Reaction Severity Reaction type Status Date Reported Comments Source statins Adverse Reaction Muscle weakness Adverse Reaction Active 10/02/2014 Josefa Nick [place] Adverse Reaction anaphylaxis Adverse Reaction Active 10/02/2014 Josefa Nick Tagamet HB Adverse Reaction Shortness of breath Adverse Reaction Active 10/02/2014 Josefa Nick Lisinopril Adverse Reaction Hypotension Adverse Reaction Active 10/02/2014 Josefa Nick Lipitor Adverse Reaction Weakness & muscle aches Adverse Reaction Active 10/02/2014 Josefa Nick Penicillin Rash High Propensity to adverse reactions to drug Active 10/06/2017 [facility] Cimetidine Rash High Propensity to adverse reactions to drug Active 10/06/2017 [facility] Immunizations Immunization Date Given Site Status Last Updated Comments Source Pneumococcal Conjugate <Unspecified> 08/18/2017 completed [facility] Results Order Name Results Value Reference Range Date Interpretation Comments Source ELECTROPH, BLD Protein 7.9 11/21/2017 [facility] ELECTROPH, BLD Comment Electronically signed out by: Maddi Whalen,PhD./[id number] (note) INTERPRETATION: The Alpha-2 fraction is increased. This could represent increase in Alpha-2 macroglobulin or haptoglobin among others. These are acute phas reactants. Alpha-2 globulins may also be increased in renal failure. 11/21/2017 [facility] SYPHILIS SCREEN FOR INFECTION Treponemal Ab Negative 11/21/2017 [facility] SYPHILIS SCREEN FOR INFECTION Final Report Negative 11/21/2017 [facility] HEMOGLOBIN A1C Hemoglobin A1c 6.1 4.3 - 6.1 11/21/2017 [facility] HEMOGLOBIN A1C Est Average Gluc 128.4 11/21/2017 [facility] SED RATE Sed Rate 32 <20 mm/Hr 11/21/2017 [facility] SED RATE Lab Interpretation Abnormal 11/21/2017 [facility] VITAMIN B12 Vitamin B12 297 211 - 911 11/21/2017 [facility] TSH TSH 1.34 0.45 - 3.50 11/21/2017 [facility] C-REACTIVE PROT C-Reactive Prot 8.74 0 - 0.79 11/21/2017 [facility] C-REACTIVE PROT Lab Interpretation Abnormal 11/21/2017 [facility] BASIC METABOLIC PANEL CO2 28 21 - 31 11/20/2017 [facility] BASIC METABOLIC PANEL Chloride 100 98 - 107 11/20/2017 [facility] BASIC METABOLIC PANEL Potassium 3.8 3.5 - 5.1 11/20/2017 [facility] BASIC METABOLIC PANEL Sodium 138 136 - 145 11/20/2017 [facility] BASIC METABOLIC PANEL Glucose 126 70 - 99 11/20/2017 [facility] BASIC METABOLIC PANEL Urea Nitrogen 10 7 - 25 11/20/2017 [facility] BASIC METABOLIC PANEL Creatinine 1.11 0.6 - 1.3 11/20/2017 [facility] BASIC METABOLIC PANEL Anion Gap 10 11/20/2017 [facility] BASIC METABOLIC PANEL Calcium 8.9 8.6 - 10.3 11/20/2017 [facility] BASIC METABOLIC PANEL GFR, Estimated >60 mL/min/1.73 m2 11/20/2017 [facility] BASIC METABOLIC PANEL GFR, Estim, Afr-Am >60 mL/min/1.73 m2 11/20/2017 [facility] BASIC METABOLIC PANEL Lab Interpretation Abnormal 11/20/2017 [facility] LIPID PROFILE Cholesterol 141 0 - 200 11/20/2017 REFERENCE RANGE:
Desirable: <200 mg/dL
Borderline: 200-240 mg/dL
High Risk: >240 mg/dL
National Heart, Lung and Blood [place], [facility] Publication No.[id number] February
2000

[facility] LIPID PROFILE Triglyceride 104 <150 11/20/2017 REFERENCE RANGE:
Normal: <150 mg/dL
Borderline High: 150-199 mg/dL
High: 200-499 mg/dL
Very High: >vh=685 mg/dL

[facility] LIPID PROFILE HDL 24 40 - 60 11/20/2017 [facility] LIPID PROFILE LDL 96 11/20/2017 REFERENCE RANGE:
Optimal: <100 mg/dL
Near Optimal: 100-129 mg/dL
Borderline High: 130-159 mg/dL
High: 160-189 mg/dL
Very High: >ue=317 mg/dL

[facility] LIPID PROFILE Lab Interpretation Abnormal 11/20/2017 [facility] CBC/DIFF WBC 8.3 4.5 - 12 11/20/2017 [facility] CBC/DIFF RBC 4.54 4.60 - 6.20 11/20/2017 [facility] CBC/DIFF Hemoglobin 14.1 14 - 18 11/20/2017 [facility] CBC/DIFF Hematocrit 41.1 40 - 54 11/20/2017 [facility] CBC/DIFF MCV 91 82 - 92 11/20/2017 [facility] CBC/DIFF MCH 31.1 27 - 31 11/20/2017 [facility] CBC/DIFF MCHC 34.3 32 - 36 11/20/2017 [facility] CBC/DIFF RDW 42.5 35.1 - 43.9 11/20/2017 [facility] CBC/DIFF Platelet 352 150 - 400 11/20/2017 [facility] CBC/DIFF Neutrophil 67.0 34 - 67.9 11/20/2017 [facility] CBC/DIFF Lymphocyte 24.0 21.8 - 50 11/20/2017 [facility] CBC/DIFF Atypical Lymph 2 11/20/2017 [facility] CBC/DIFF Monocyte 6.0 5.3 - 12 11/20/2017 [facility] CBC/DIFF Basophil None seen 0.2 - 1.2 11/20/2017 [facility] CBC/DIFF Eosinophil 1.0 0.8 - 5 11/20/2017 [facility] CBC/DIFF NRBC 1 /100 WBC 11/20/2017 [facility] CBC/DIFF Neutrophil, Abs 5.56 1.78 - 5.36 11/20/2017 [facility] CBC/DIFF Lymphocyte, Abs 1.99 1.32 - 3.57 11/20/2017 [facility] CBC/DIFF Monocyte, Abs 0.50 0.3 - 0.82 11/20/2017 [facility] CBC/DIFF Basophil, Abs None seen 0.01 - 0.08 11/20/2017 [facility] CBC/DIFF Eosinophil, Abs 0.08 0.04 - 0.54 11/20/2017 [facility] CBC/DIFF Large Platelets 1+ 11/20/2017 [facility] CBC/DIFF Lab Interpretation Abnormal 11/20/2017 [facility] MAGNESIUM Magnesium 2.4 1.8 - 2.4 11/17/2017 [facility] INFLUENZA RSV SUBTYPE Influenza A Not detected 11/17/2017 [facility] INFLUENZA RSV SUBTYPE Influenza A,H1 Not detected 11/17/2017 [facility] INFLUENZA RSV SUBTYPE Influenza A,H3 Not detected 11/17/2017 [facility] INFLUENZA RSV SUBTYPE Flu A [id number] Not detected 11/17/2017 [facility] INFLUENZA RSV SUBTYPE Influenza B PCR Detected 11/17/2017 [facility] INFLUENZA RSV SUBTYPE RSV A Not detected 11/17/2017 [facility] INFLUENZA RSV SUBTYPE RSV B Not detected This test utilizes FDA cleared tweetTVigene Respiratory Virus Plus Nucleic Acid Test from [employer]. This test is a qualitative multiplexed test for the detection of Influenza A, Influenza A H1, Influenza A H3, Influenza A 2009 H1N1, Influenza B, RSV A and RSV B. 11/17/2017 [facility] LEGIONELLA AG, UR Legionella Ag, Ur Negative NEG 11/17/2017 [facility] RAPID INFLUENZA SCREEN Spec Description Nasal 11/17/2017 [facility] RAPID INFLUENZA SCREEN Order Comments None 11/17/2017 [facility] RAPID INFLUENZA SCREEN Direct Exam Negative for Influenza A and B by EIA 11/17/2017 [facility] RAPID INFLUENZA SCREEN Report Status Final 11/16/2017 11/17/2017 [facility] SPUTUM STAIN / CULTURE Spec Description Sputum 11/17/2017 [facility] SPUTUM STAIN / CULTURE Order Comments None 11/17/2017 [facility] SPUTUM STAIN / CULTURE Gram Stain 2+ WBC's seen 1+ Epithelial cells Mixed bacterial morphotypes seen 11/17/2017 [facility] SPUTUM STAIN / CULTURE Culture 4+ Normal iliana 11/17/2017 [facility] SPUTUM STAIN / CULTURE Report Status Final 11/19/2017 11/17/2017 [facility] UA CHEMISTRIES Color Lolly 11/17/2017 [facility] UA CHEMISTRIES Clarity Hazy 11/17/2017 [facility] UA CHEMISTRIES Spec [place] 1.029 1.001 - 1.035 11/17/2017 [facility] UA CHEMISTRIES pH 5.0 5 - 8 11/17/2017 [facility] UA CHEMISTRIES Protein 3+ NEG 11/17/2017 [facility] UA CHEMISTRIES Glucose Negative NEG 11/17/2017 [facility] UA CHEMISTRIES Ketone 1+ NEG 11/17/2017 [facility] UA CHEMISTRIES Bilirubin Negative NEG 11/17/2017 [facility] UA CHEMISTRIES Nitrate Negative NEG 11/17/2017 [facility] UA CHEMISTRIES Urobilinogen 2.0 0.2 - 1 11/17/2017 [facility] UA CHEMISTRIES Leukocyte Negative NEG 11/17/2017 [facility] UA CHEMISTRIES Blood 2+ NEG 11/17/2017 [facility] UA CHEMISTRIES RBC 4 0 - 4 11/17/2017 [facility] UA CHEMISTRIES WBC 5 0 - 5 11/17/2017 [facility] UA CHEMISTRIES Epithelial Cell 2 /HPF 11/17/2017 [facility] UA CHEMISTRIES Mucous Present 11/17/2017 [facility] UA CHEMISTRIES Lab Interpretation Abnormal 11/17/2017 [facility] BLOOD CULTURE Spec Description Blood Left arm 11/16/2017 [facility] BLOOD CULTURE Order Comments None 11/16/2017 [facility] BLOOD CULTURE Culture No growth 5 days 11/16/2017 [facility] BLOOD CULTURE Report Status Final 11/21/2017 11/16/2017 [facility] B NATRIURETIC PEPT B Natriuretic Pept 80 <101 11/16/2017 [facility] PT/INR PT 13.8 11.8 - 15.0 11/16/2017 [facility] PT/INR INR 1.1 SUGGESTED THERAPEUTIC RANGES: INR 2.0-3.0 for MODERATE INTENSITY ANTICOAGULATION INR 2.5-3.5 for HIGH INTENSITY ANTICOAGULATION 11/16/2017 [facility] COMPREHENSIVE METABOLIC PANEL(DBIL NOT INCLUDED) Albumin 3.6 3.4 - 5 11/16/2017 [facility] COMPREHENSIVE METABOLIC PANEL(DBIL NOT INCLUDED) Calcium 8.4 8.5 - 10.2 11/16/2017 [facility] COMPREHENSIVE METABOLIC PANEL(DBIL NOT INCLUDED) CO2 22.6 21 - 32 11/16/2017 [facility] COMPREHENSIVE METABOLIC PANEL(DBIL NOT INCLUDED) Chloride 95 98 - 107 11/16/2017 [facility] COMPREHENSIVE METABOLIC PANEL(DBIL NOT INCLUDED) Creatinine 1.32 0.6 - 1.3 11/16/2017 [facility] COMPREHENSIVE METABOLIC PANEL(DBIL NOT INCLUDED) Glucose 91 70 - 99 11/16/2017 [facility] COMPREHENSIVE METABOLIC PANEL(DBIL NOT INCLUDED) Alk Phos 105 45 - 117 11/16/2017 [facility] COMPREHENSIVE METABOLIC PANEL(DBIL NOT INCLUDED) Potassium 4.1 3.5 - 5.1 11/16/2017 [facility] COMPREHENSIVE METABOLIC PANEL(DBIL NOT INCLUDED) Sodium 131 136 - 145 11/16/2017 [facility] COMPREHENSIVE METABOLIC PANEL(DBIL NOT INCLUDED) ALT 21 12 - 78 11/16/2017 [facility] COMPREHENSIVE METABOLIC PANEL(DBIL NOT INCLUDED) AST 32 15 - 37 11/16/2017 [facility] COMPREHENSIVE METABOLIC PANEL(DBIL NOT INCLUDED) Urea Nitrogen 29 7 - 18 11/16/2017 [facility] METABOLIC PANEL(DBIL NOT INCLUDED) T Bilirubin 0.7 0.2 - 1 11/16/2017 [facility] COMPREHENSIVE METABOLIC PANEL(DBIL NOT INCLUDED) T Protein 7.9 6.4 - 8.2 11/16/2017 [facility] COMPREHENSIVE METABOLIC PANEL(DBIL NOT INCLUDED) GFR, Estimated 57 mL/min/1.73 m2 11/16/2017 [facility] COMPREHENSIVE METABOLIC PANEL(DBIL NOT INCLUDED) GFR, Estim, Afr-Am >60 mL/min/1.73 m2 11/16/2017 [facility] COMPREHENSIVE METABOLIC PANEL(DBIL NOT INCLUDED) Anion Gap 13.4 11/16/2017 [facility] METABOLIC PANEL(DBIL NOT INCLUDED) Lab Interpretation Abnormal 11/16/2017 [facility] OCCULT BLOOD ICT Occult Blood ICT Negative NEG 11/16/2017 [facility] 12 LEAD EKG 12 LEAD EKG FOR [facility] Test Date:2017-11-16 Pat Name: NELY Willamspartment: : Gender: MTechnician: [id number] :1965 Requested By: Order Number:Christal STAFFORD: Carmen Figueroa M.D. Measurements IntervalsAxis Rate: 119P:54 [place]: 151QRS:70 QRSD: 83 T:65 QT: 317 QTc:447 Interpretive Statements SINUS TACHYCARDIA POSSIBLE LEFT ATRIAL ENLARGEMENT ANTEROSEPTAL MYOCARDIAL INFARCTION, OF INDETERMINATE AGE Electronically Signed On 11-16-17 14:02:15 [facility] [place] DRIED SALT by Carmen Figueroa M.D. 11/16/2017 [facility] TROPONIN I POC Troponin POC 0.02 0 - 0.08 11/16/2017 [facility] POC CO2 POC 22 21 - 32 11/16/2017 [facility] POC Chloride POC 96 98 - 107 11/16/2017 [facility] POC Potassium POC 3.7 3.5 - 5.1 11/16/2017 [facility] POC Sodium POC 135 136 - 145 11/16/2017 [facility] POC Glucose POC 117 74 - 106 11/16/2017 [facility] POC Urea Nitrogen POC 30 7 - 18 11/16/2017 [facility] POC Creatinine POC 1.4 0.6 - 1.3 11/16/2017 [facility] POC Calcium Ionized POC 1.06 1.15 - 1.29 11/16/2017 [facility] POC Hemoglobin POC 19.0 14 - 18 11/16/2017 [facility] POC Hematocrit POC 56.0 40 - 54 11/16/2017 [facility] POC GFR, Estimated 53 mL/min/1.73 m2 11/16/2017 [facility] POC GFR, Estim, Afr-Am >60 mL/min/1.73 m2 11/16/2017 [facility] POC Lab Interpretation Abnormal 11/16/2017 [facility] 12 LEAD EKG 12 LEAD EKG FOR [facility] Test Date:2017-11-03 Pat Name: NELY Aguilar: : Gender: MTechnician: [id number] :1965 Requested By: Order Number:Reading MD: Carmen Figueroa M.D. Measurements IntervalsAxis Rate: 71 P:51 [place]: 152QRS:59 QRSD: 96 T:89 QT: 418 QTc:454 Interpretive Statements Normal sinus rhythm Anterior infarct, age undetermined Abnormal ECG Electronically Signed On 11-03-17 11:10:14 [place] DRIED SALT by Carmen Figueroa M.D. 11/03/2017 [facility] CREATININE Creatinine 1.30 0.6 - 1.3 10/10/2017 [facility] CREATININE GFR, Estimated 58 mL/min/1.73 m2 10/10/2017 [facility] CREATININE GFR, Estim, Afr-Am >60 mL/min/1.73 m2 10/10/2017 [facility] Pathology Reports No Data Provided for [...] Ventura Beltran MD, 11/16/2017 5:26 PM 11/16/[address] [facility] [address] HEAD W/O CONTRAST IMPRESSION: 1.Minimal [...] Alexia Mantilla MD, 10/17/2017 4:14 PM 10/17/2017 [facility] Consultation Notes No Data Provided for This Section Discharge Summaries No Data Provided for This Section History and Physicals No Data Provided for This Section Vital Signs Vital Sign Value Date Comments Source Systolic (mm Hg) 137 12/01/2017 [facility] Diastolic (mm Hg) 87 12/01/2017 [facility] Heart Rate 75 12/01/2017 [facility] Temperature Oral (F) 36.5 Mary 12/01/2017 [facility] Respitory Rate 18 12/01/2017 [facility] Height 170.7 cm 12/01/2017 [facility] Weight 92.08 12/01/2017 [facility] BMI Calculated 31.60 12/01/2017 [facility] Weight 203 10/02/2014 [facility] [place] Height 68 10/02/2014 [facility] Temperature Oral (F) 96.9 F 10/02/2014 [facility] [place] Heart Rate 69 10/02/2014 [facility] [place] Diastolic (mm Hg) 85 10/02/2014 [facility] [place] Systolic (mm Hg) 130 10/02/2014 [facility] [place] [facility] [place] Height 68 07/03/2014 [facility] [...] Status Source Josefa Nick MD PA Unknown [id number] 05/27/2014 05/27/2014 Josefa Nick MD PA Unknown [id number] 05/27/2014 05/27/2014 Josefa Nick MD PA Unknown [id number] 05/27/2014 05/27/2014 Josefa Nick MD PA Unknown [id number] 05/27/2014 05/27/2014 Josefa Nick MD PA Unknown [id number] 06/10/2014 06/10/2014 Josefa Nick, MD PA Unknown [id number] 06/10/2014 06/10/2014 Josefa Nick MD PA Unknown [id number] 06/10/2014 06/10/2014 Josefa Nick MD PA Unknown [id number] 07/03/2014 07/03/2014 Josefa Nick MD PA Unknown [id number] 07/03/2014 07/03/2014 Josefa Nick MD PA Unknown [id number] 10/02/2014 10/02/2014 Josefa Nick MD PA Unknown [id number] 10/02/2014 10/02/2014 Josefa Nick MD PA Unknown [id number] 12/09/2014 12/09/2014 Josefa Nick MD PA Unknown [id number] 12/09/2014 12/09/2014 [facility] Visit [id number] 10/06/2017 [facility] Office Visit [id number] Vision loss of right eye Concern about stroke without diagnosis CAD S/P percutaneous coronary angioplasty Chronic congestive heart failure, unspecified congestive heart failure type Smoker Wheezing S/P colonoscopy with polypectomy Family history of colon cancer in mother Everette Rojas MD 10/06/2017 10/06/2017 [facility] Visit [id number] 10/09/2017 [facility] Visit [id number] 10/10/2017 [facility] Orders Only [id number] CAD S/P percutaneous coronary angioplasty Chronic systolic congestive heart failure Smoker Chronic chest pain Everette Rojas MD 10/13/2017 [facility] Telephone [id number] Right facial numbness Vision loss of right eye Everette Rojas MD 10/17/[address] [facility] [address] Scan SC Ancillary Procedure [id number] Everette Rojas MD 10/17/2017 10/17/2017 [facility] Visit [id number] 10/24/2017 [facility] Telephone [id number] Sarah Perkins RN 11/02/2017 [facility] Only [id number] CAD S/P percutaneous coronary angioplasty Chronic systolic congestive heart failure Everette Rojas MD 11/02/2017 [facility] [id number] CAD S/P percutaneous coronary angioplasty Chronic systolic congestive heart failure Everette Rojas MD 11/03/2017 11/03/2017 [facility] ASK YOUR NURSE PROGRAM Nurse Triage [id number] Xiomara Bolaños RN 11/16/[address] [facility] Emergency [id number] Cough Influenza SIRS (systemic inflammatory response syndrome) Tachypnea Tachycardia CAD S/P percutaneous coronary angioplasty Wheezing Influenza B Elton Yang MD 11/16/2017 11/17/2017 [facility] Office Visit [id number] Vision loss of right eye Pato Morgan MD 11/20/2017 11/20/2017 [facility] Telephone [id number] Brittney Gil MD 11/27/2017 [facility] Office Visit [id number] Glaucomatous optic atrophy of right eye Transient visual loss of both eyes Blindness of one eye with normal vision in contralateral eye Elevated erythrocyte sedimentation rate Elevated C-reactive protein (CRP) Myopia of left eye with astigmatism and presbyopia Everette Rojas MD 11/27/2017 11/27/2017 [facility] Ophthalmology Nurse Only [id number] Isha Crawford 11/29/2017 11/29/2017 [facility] Ophthalmology Office Visit [id number] Neovascular glaucoma, right eye, 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 Blindness right eye category 5, normal vision left eye Age-related nuclear cataract of both eyes Ocular ischemic syndrome Cedric Santana MD 11/29/2017 11/29/2017 [facility] Social Work [facility] Clinical Case Mgt [id number] Cherri Graham RN 12/01/2017 [facility] Family Practice [facility] Office Visit [id number] Financial difficulties Blindness right eye category 5, normal vision left eye Glaucomatous optic atrophy of right eye CAD S/P percutaneous coronary angioplasty Everette Rojas MD 12/01/2017 12/01/2017 [facility] BT Ophthalmology Orders Only [id number] Ocular ischemic syndrome Neovascular glaucoma, right eye, severe stage Cedric Santana MD 12/06/2017 [facility] Nuclear Medicine BT Hospital Encounter [id number] Everette Rojas MD 12/14/2017 12/14/2017 [facility] Procedures Procedure Code Date Perfomer Comments Source HEMOGLOBIN A1C 27430 11/20/2017 [facility] SED RATE 79712 11/20/2017 [facility] C-REACTIVE PROT 13401 11/20/2017 [facility] TSH 28166 11/20/2017 [facility] VITAMIN B12 32026 11/20/2017 [facility] SYPHILIS SCREEN FOR INFECTION 78925 11/20/2017 [facility] LIPID PROFILE 55739 11/20/2017 [facility] ELECTROPH, BLD 15662 11/20/2017 [facility] BASIC METABOLIC PANEL 83526 11/17/2017 [facility] XRAY CHEST 2 VIEWS 75198 11/16/2017 [facility] INFLUENZA RSV SUBTYPE 81885 11/16/2017 [facility] RAPID INFLUENZA SCREEN 43019 11/16/2017 [facility] SPUTUM STAIN / CULTURE 87595 11/16/2017 [facility] [place] [address] 11/16/2017 [facility] UA CHEMISTRIES 86612 11/16/2017 [facility] COMPREHENSIVE METABOLIC PANEL(DBIL NOT INCLUDED) 21381 11/16/2017 [facility] MAGNESIUM 55872 11/16/2017 [facility] B NATRIURETIC PEPT 28371 11/16/2017 [facility] PT/INR 05617 11/16/2017 [facility] BLOOD CULTURE 35766 11/16/2017 [facility] TROPONIN I POC 98136 11/16/2017 [facility] CBC/DIFF 14785 11/16/2017 [facility] BMP POC 43943 11/16/2017 [place] [address] LEAD EKG 10867 11/03/[address] [facility] [address] HEAD W/O CONTRAST 02323 10/17/2017 [facility] OCCULT BLOOD ICT 24947 10/09/2017 [facility] CREATININE 70152 10/09/2017 [facility] Assessment and Plan No Data Provided for This Section Plan of Care Plan of Care Date Source CORONARY ARTERY DISEASE AGE 18 AND UP 11/20/2018 [facility] Colorectal Cancer Scrn Annual (FIT/FOBT) Age 50 to 75 11/16/2018 [facility] IMM Influenza Seasonal Jul to December (>/=19 yrs) 07/30/2018 [facility] Social History Social History Date Source [...] at BirthDate Recorded Not on file 12/01/2017 [facility] Social History ElementQualifiersDate Reported Smoking . Status Current Smoker 1 pack per day, Completed counseling for quiting smoking Yes February 12, 2015 Alcohol Use No. February 12, 2015 Alcohol Screening: No. February 12, 2015 Marital Status: . February 12, 2015 Do you drink alcohol? No. 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
[2019-07-06] MEDS ORDERED: ASPIRIN 81 MG CHEW TAB PO ONE (15:15)
[2019-07-06 15:43] LABS: BASOPHILS # (AUTO) 0.1 (0.0-0.1); BASOPHILS % 1.5 % (0.0-1.0); EOSINOPHILS # (AUTO) 0.2 (0.0-0.4); EOSINOPHILS % 2.3 % (0.0-6.0); HEMATOCRIT 47.7 % (38.2-49.6); HEMOGLOBIN 16.2 g/dL (14.0-18.0); LYMPHOCYTES # (AUTO) 1.9 (1.0-3.2); LYMPHOCYTES % 20.4 % (18.0-39.1); MEAN CORPUSCULAR HEMOGLOBIN 30.3 pg (28-32); MEAN CORPUSCULAR VOLUME 89.2 fL (81-99); MONOCYTES # (AUTO) 0.9 (0.2-0.8); MONOCYTES % 9.4 % (4.4-11.3); NEUTROPHILS # (AUTO) 6.3 (2.1-6.9); NEUTROPHILS % 66.1 % (38.7-80.0); PLATELET COUNT 313 x10e3/uL (140-360); RED BLOOD COUNT 5.35 x10e6/uL (4.3-5.7); RED CELL DISTRIBUTION WIDTH 13.5 % (11.7-14.4)
[2019-07-06 15:46] LABS: INR 0.96; PROTHROMBIN TIME 13.3 seconds (11.9-14.5)
[2019-07-06 15:47] LABS: PARTIAL THROMBOPLASTIN TIME 31.6 seconds (23.8-35.5)
[2019-07-06 15:56] LABS: ALANINE AMINOTRANSFERASE 10 IU/L (0-55); ALBUMIN 3.8 g/dL (3.5-5.0); ALBUMIN/GLOBULIN RATIO 1.2 (0.8-2.0); ALKALINE PHOSPHATASE 109 IU/L (40-150); ANION GAP 14.7 mmol/L (8-16); BLOOD UREA NITROGEN 8 mg/dL (7-26); BUN/CREATININE RATIO 7 (6-25); CALCIUM 9.3 mg/dL (8.4-10.2); CARBON DIOXIDE 22 mmol/L (22-29); CHLORIDE 103 mmol/L (98-107); CREATINE KINASE 163 IU/L (30-200); CREATININE, SERUM 1.23 mg/dL (0.72-1.25); EST GLOMERULAR FILTRATION RATE > 60 ML/MIN (60-); GLUCOSE 150 mg/dL (74-118); POTASSIUM 3.7 mmol/L (3.5-5.1); SODIUM 136 mmol/L (136-145)
[2019-07-06 16:17] LABS: BILIRUBIN,URINE SMALL (NEGATIVE); CLARITY,URINE CLEAR (CLEAR); COLOR,URINE YELLOW (YELLOW); KETONES,URINE TRACE (NEGATIVE); LEUKOCYTE ESTERASE ,URINE NEGATIVE (NEGATIVE); NITRITE,URINE NEGATIVE (NEGATIVE); PROTEIN,URINE DIPSTICK 1+ (NEGATIVE); URINE UROBILINOGEN 0.2 mg/dL (0.2 - 1)
[2019-07-06] MEDS ORDERED: ONDANSETRON HCL INJ 2MG/ML 2ML 2 MG/ML VIAL IV NR (16:30)
[2019-07-06 16:38] LABS: BACTERIA,URINE FEW /HPF; EPITHELIAL CELLS,URINE FEW /LPF
[2019-07-06] MEDS ORDERED: MORPHINE SULFATE INJ 4 MG/ML INJ 1ML IV NR (16:45)
--- NOTE | 2019-07-06 16:52 | Diagnostic Imaging Report ---
EXAMINATION: CHEST SINGLE (PORTABLE) INDICATION: Chest pain. COMPARISON: None FINDINGS: TUBES and LINES: None. LUNGS: Low lung volumes. No evidence of pneumonia or pulmonary edema. Mild patchy bibasilar opacity, likely atelectasis. PLEURA: No pleural effusion or pneumothorax. HEART AND MEDIASTINUM: The cardiomediastinal silhouette is unremarkable. BONES AND SOFT TISSUES: No acute osseous abnormality UPPER ABDOMEN: No free air under the diaphragm. IMPRESSION: No acute radiographic abnormality. Signed by: Dr. Helga Spears MD on 07/06/2019 4:48 PM
--- NOTE | 2019-07-06 16:56 | NUR ---
WAITING FOR ADMIT ORDERS
[2019-07-06] MEDS ORDERED: ONDANSETRON HCL INJ 2MG/ML 2ML 2 MG/ML VIAL IV PRN (17:30)
[2019-07-06] MEDS ORDERED: CARVEDILOL12.5 MG PO (17:37)
[2019-07-06] MEDS ORDERED: LOSARTAN POTASS25 MG PO (17:37)
[2019-07-06] MEDS ORDERED: ASPIR 8181 MG PO (17:37)
[2019-07-06] MEDS ORDERED: CRESTOR10 MG PO (17:37)
[2019-07-06] MEDS ORDERED: ISOSORBIDE MONO30 MG PO (17:37)
[2019-07-06] MEDS ORDERED: NITROGLYCERIN0.4 MG SL (17:37)
[2019-07-06] MEDS ORDERED: LOSARTAN POTAS100 MG PO (17:38)
[2019-07-06] MEDS ORDERED: ZANTAC150 MG PO (17:40)
[2019-07-06] MEDS ORDERED: LEVALBUTEROL HCL SOLN NEBU 0.63 MG/3 ML NEB INH PRN (17:45)
[2019-07-06] MEDS ORDERED: IPRATROPIUM BROMIDE 0.02% 2.5 ML NEB NEB PRN (17:45)
--- OUTSIDE RECORDS SUMMARY | 2019-07-06 17:48 | XMS REPORT | Continuity of Care Document ---
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 Role Phone [email or web address] Unavailable Unavailable Problems Problem Status Onset Date Classification Date Reported Comments Source Age-related nuclear cataract of both eyes Active 11/29/2017 Problem 09/10/2018 [facility] Blindness right eye category 5, normal vision left eye Active 11/29/2017 Problem 09/10/2018 [facility] Transient visual loss of both eyes Active 11/27/2017 Problem 09/10/2018 [facility] Elevated C-reactive protein (CRP) Active 11/27/2017 Problem 09/10/2018 [facility] Elevated erythrocyte sedimentation rate Active 11/27/2017 Problem 09/10/2018 [facility] 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 11/27/2017 Problem 09/10/2018 [facility] Chronic systolic congestive heart failure Active 10/13/2017 Problem 09/10/2018 [facility] Vision loss of right eye Active 10/06/2017 Problem 09/10/2018 [facility] CAD S/P percutaneous coronary angioplasty Active 10/06/2017 Problem 09/10/2018 [facility] Chronic congestive heart failure Active 10/06/2017 Problem 09/10/2018 [facility] Smoker Active 10/06/2017 Problem 09/10/2018 [facility] Concern about stroke without diagnosis Active 10/06/2017 Problem 09/10/2018 [facility] S/P colonoscopy with polypectomy Active 10/06/2017 Problem 09/10/2018 [facility] Family history of colon cancer in mother Active 10/06/2017 Problem 09/10/2018 [facility] Wheezing Active 10/06/2017 Problem 09/10/2018 [facility] Abnormal EKG Active Diagnosis 09/23/2015 Josefa Nick CAD, [place] Coronary Artery Active Problem 09/23/2015 Josefa Nick Hypercholesterolemia Active Problem 09/23/2015 Josefa Nick Atheroscler of [place] artery of both legs with intermit claudication Active Problem 09/23/2015 Josefa Nick Shortness of breath Active Problem 09/23/2015 Josefa Nick Ischemic cardiomyopathy Active Problem 09/23/2015 Josefa [place] PTCA Status Active Problem 09/23/2015 Josefa [place] ID Acute myocardial infarction of anterolateral wall, initial episode of care Active Problem 09/23/2015 Josefa [place] Ros[place] Angina Active Problem 09/23/2015 Josefa De La Ros[place] ID Old myocardial infarction Active Problem 09/23/2015 Josefa [place] Mitral valve disorders Active Problem 09/23/2015 Josefa [place] Cough Active Problem 09/10/2018 [facility] Influenza Active Problem 09/10/2018 [facility] Tachycardia Active Problem 09/10/2018 [facility] Tachypnea Active Problem 09/10/2018 [facility] SIRS (systemic inflammatory response syndrome) Active Problem 09/10/2018 [facility] Medications Medication Details Route Status Patient Instructions Ordering Provider Order Date Source Latanoprost 0.005 % Eye Drops Xalatan 0.005 % Eye Drops Instill 1 Drop in right eye at bedtime nightly. Active 11/27/2017 [facility] Ibuprofen 800 Mg Tablet Take 800 mg by mouth every 8 hours as needed. Oral No Longer Active 11/17/2017 [facility] Oseltamivir 75 Mg Capsule Take 1 capsule by mouth 2 times daily for 5 days. Oral No Longer Active 11/17/2017 [facility] Promethazine 25 Mg Tablet Take 1 tablet by mouth every 6 hours as needed for up to 7 days for Nausea or Vomiting. Oral No Longer Active 11/17/2017 [facility] Albuterol Sulfate Hfa 90 McG/Actuation Aerosol Inhaler Inhalation Inactive 10/06/2017 [facility] Peg 3350-Electrolytes 236 Gram-22.74 Gram-6.74 Gram-5.86 Gram Solution Add lukewarm drinking water to the fill tanvi (4 liters) and shake. Drink as directed by your doctor.. Active 10/06/2017 [facility] Albuterol Sulfate Hfa 90 McG/Actuation Aerosol Inhaler Inhale 2 Puffs by mouth 4 times daily as needed for Wheezing or Shortness of Breath. Inhalation Active 10/06/2017 [facility] Losartan Potassium 1 tablet Orally Active 25 MG Orally Once a [facility]2014 [facility] [place] Livalo 1 tablet Orally Active 4 MG Orally Once a day [facility] 06/10/2014 [facility] Rjshahrzad Coreg 1 tablet with food Orally Active 3.125 MG Orally Twice a day [place] 06/10/2014 Josefa Nick Protonix 1 tablet Orally Active 40 mg [facility] [place] Plavix 1 tablet Orally Active 75 mg Orally Once a day [facility] [place] Famotidine 1 tablet at bedtime Orally Active 40 mg Orally Once a day [facility] [place] Carvedilol 1 tablet Orally Active 3.125 MG Orally Twice a day [facility] [place] Hyoscyamine Sulfate CR 1 tablet Orally Active 0.375 MG Orally Twice a day [facility] [place]ul [place] Pantoprazole Sodium 1 tablet Orally Active 40 mg Orally Once a day [facility] Florastor 1 capsule Orally Active 250 MG Orally Twice a day [facility] [place] Aspirin 81 Mg Chewable Tablet Chew and swallow 81 mg by mouth daily. Active [facility] Carvedilol 3.125 Mg Tablet Take 12.5 mg by mouth 2 times daily (with meals) . Oral Active [facility] Clopidogrel 75 Mg Tablet Take 75 mg by mouth daily. Oral Active [facility] Losartan 100 Mg Tablet Take 100 mg by mouth daily. Oral Active [facility] Nitroglycerin 0.[address] 0.4 mg under tongue every 5 minutes as needed Dissolve 1 tablet under the tongue every 5 minutes as needed, up to 3 times. If chest pain persists, call 911. Sublingual Active [facility] ranolazine (RANEXA) 500 mg extended release tablet Take 500 mg by mouth 2 times daily. Oral Active [facility] Isosorbide Mononitrate Er 30 Mg Tablet,Extended Release 24 Hr Take 30 mg by mouth daily. Oral Active [facility] Pravastatin 40 Mg Tablet Take 40 mg by mouth at bedtime nightly. Oral Active [place] ZUGGI Allergies, Adverse Reactions, Alerts Substance Category Reaction Severity Reaction type Status Date Reported Comments Source statins Adverse Reaction Muscle weakness Adverse Reaction Active 10/02/2014 Josefa Nick [place] Adverse Reaction anaphylaxis Adverse Reaction Active 10/02/2014 Josefa Nick Tagamet HB Adverse Reaction Shortness of breath Adverse Reaction Active 10/02/2014 Josefa Nick Lisinopril Adverse Reaction Hypotension Adverse Reaction Active 10/02/2014 Josefa Nick Lipitor Adverse Reaction Weakness & muscle aches Adverse Reaction Active 10/02/2014 Josefa Nick Penicillin Rash High Propensity to adverse reactions to drug Active 10/06/2017 [facility] Cimetidine Rash High Propensity to adverse reactions to drug Active 10/06/2017 [facility] Immunizations Immunization Date Given Site Status Last Updated Comments Source Pneumococcal Conjugate <Unspecified> 08/18/2017 completed [facility] Results Order Name Results Value Reference Range Date Interpretation Comments Source ELECTROPH, BLD Protein 7.9 11/21/2017 [facility] ELECTROPH, BLD Comment Electronically signed out by: Maddi Whalen,PhD./[id number] (note) INTERPRETATION: The Alpha-2 fraction is increased. This could represent increase in Alpha-2 macroglobulin or haptoglobin among others. These are acute phas reactants. Alpha-2 globulins may also be increased in renal failure. 11/21/2017 [facility] SYPHILIS SCREEN FOR INFECTION Treponemal Ab Negative 11/21/2017 [facility] SYPHILIS SCREEN FOR INFECTION Final Report Negative 11/21/2017 [facility] HEMOGLOBIN A1C Hemoglobin A1c 6.1 4.3 - 6.1 11/21/2017 [facility] HEMOGLOBIN A1C Est Average Gluc 128.4 11/21/2017 [facility] SED RATE Sed Rate 32 <20 mm/Hr 11/21/2017 [facility] SED RATE Lab Interpretation Abnormal 11/21/2017 [facility] VITAMIN B12 Vitamin B12 297 211 - 911 11/21/2017 [facility] TSH TSH 1.34 0.45 - 3.50 11/21/2017 [facility] C-REACTIVE PROT C-Reactive Prot 8.74 0 - 0.79 11/21/2017 [facility] C-REACTIVE PROT Lab Interpretation Abnormal 11/21/2017 [facility] BASIC METABOLIC PANEL CO2 28 21 - 31 11/20/2017 [facility] BASIC METABOLIC PANEL Chloride 100 98 - 107 11/20/2017 [facility] BASIC METABOLIC PANEL Potassium 3.8 3.5 - 5.1 11/20/2017 [facility] BASIC METABOLIC PANEL Sodium 138 136 - 145 11/20/2017 [facility] BASIC METABOLIC PANEL Glucose 126 70 - 99 11/20/2017 [facility] BASIC METABOLIC PANEL Urea Nitrogen 10 7 - 25 11/20/2017 [facility] BASIC METABOLIC PANEL Creatinine 1.11 0.6 - 1.3 11/20/2017 [facility] BASIC METABOLIC PANEL Anion Gap 10 11/20/2017 [facility] BASIC METABOLIC PANEL Calcium 8.9 8.6 - 10.3 11/20/2017 [facility] BASIC METABOLIC PANEL GFR, Estimated >60 mL/min/1.73 m2 11/20/2017 [facility] BASIC METABOLIC PANEL GFR, Estim, Afr-Am >60 mL/min/1.73 m2 11/20/2017 [facility] BASIC METABOLIC PANEL Lab Interpretation Abnormal 11/20/2017 [facility] LIPID PROFILE Cholesterol 141 0 - 200 11/20/2017 REFERENCE RANGE:
Desirable: <200 mg/dL
Borderline: 200-240 mg/dL
High Risk: >240 mg/dL
National Heart, Lung and Blood [place], [facility] Publication No.[id number] February
2000

[facility] LIPID PROFILE Triglyceride 104 <150 11/20/2017 REFERENCE RANGE:
Normal: <150 mg/dL
Borderline High: 150-199 mg/dL
High: 200-499 mg/dL
Very High: >yf=272 mg/dL

[facility] LIPID PROFILE HDL 24 40 - 60 11/20/2017 [facility] LIPID PROFILE LDL 96 11/20/2017 REFERENCE RANGE:
Optimal: <100 mg/dL
Near Optimal: 100-129 mg/dL
Borderline High: 130-159 mg/dL
High: 160-189 mg/dL
Very High: >lr=521 mg/dL

[facility] LIPID PROFILE Lab Interpretation Abnormal 11/20/2017 [facility] CBC/DIFF WBC 8.3 4.5 - 12 11/20/2017 [facility] CBC/DIFF RBC 4.54 4.60 - 6.20 11/20/2017 [facility] CBC/DIFF Hemoglobin 14.1 14 - 18 11/20/2017 [facility] CBC/DIFF Hematocrit 41.1 40 - 54 11/20/2017 [facility] CBC/DIFF MCV 91 82 - 92 11/20/2017 [facility] CBC/DIFF MCH 31.1 27 - 31 11/20/2017 [facility] CBC/DIFF MCHC 34.3 32 - 36 11/20/2017 [facility] CBC/DIFF RDW 42.5 35.1 - 43.9 11/20/2017 [facility] CBC/DIFF Platelet 352 150 - 400 11/20/2017 [facility] CBC/DIFF Neutrophil 67.0 34 - 67.9 11/20/2017 [facility] CBC/DIFF Lymphocyte 24.0 21.8 - 50 11/20/2017 [facility] CBC/DIFF Atypical Lymph 2 11/20/2017 [facility] CBC/DIFF Monocyte 6.0 5.3 - 12 11/20/2017 [facility] CBC/DIFF Basophil None seen 0.2 - 1.2 11/20/2017 [facility] CBC/DIFF Eosinophil 1.0 0.8 - 5 11/20/2017 [facility] CBC/DIFF NRBC 1 /100 WBC 11/20/2017 [facility] CBC/DIFF Neutrophil, Abs 5.56 1.78 - 5.36 11/20/2017 [facility] CBC/DIFF Lymphocyte, Abs 1.99 1.32 - 3.57 11/20/2017 [facility] CBC/DIFF Monocyte, Abs 0.50 0.3 - 0.82 11/20/2017 [facility] CBC/DIFF Basophil, Abs None seen 0.01 - 0.08 11/20/2017 [facility] CBC/DIFF Eosinophil, Abs 0.08 0.04 - 0.54 11/20/2017 [facility] CBC/DIFF Large Platelets 1+ 11/20/2017 [facility] CBC/DIFF Lab Interpretation Abnormal 11/20/2017 [facility] MAGNESIUM Magnesium 2.4 1.8 - 2.4 11/17/2017 [facility] INFLUENZA RSV SUBTYPE Influenza A Not detected 11/17/2017 [facility] INFLUENZA RSV SUBTYPE Influenza A,H1 Not detected 11/17/2017 [facility] INFLUENZA RSV SUBTYPE Influenza A,H3 Not detected 11/17/2017 [facility] INFLUENZA RSV SUBTYPE Flu A [id number] Not detected 11/17/2017 [facility] INFLUENZA RSV SUBTYPE Influenza B PCR Detected 11/17/2017 [facility] INFLUENZA RSV SUBTYPE RSV A Not detected 11/17/2017 [facility] INFLUENZA RSV SUBTYPE RSV B Not detected This test utilizes FDA cleared Unique Solutionsigene Respiratory Virus Plus Nucleic Acid Test from [employer]. This test is a qualitative multiplexed test for the detection of Influenza A, Influenza A H1, Influenza A H3, Influenza A 2009 H1N1, Influenza B, RSV A and RSV B. 11/17/2017 [facility] LEGIONELLA AG, UR Legionella Ag, Ur Negative NEG 11/17/2017 [facility] RAPID INFLUENZA SCREEN Spec Description Nasal 11/17/2017 [facility] RAPID INFLUENZA SCREEN Order Comments None 11/17/2017 [facility] RAPID INFLUENZA SCREEN Direct Exam Negative for Influenza A and B by EIA 11/17/2017 [facility] RAPID INFLUENZA SCREEN Report Status Final 11/16/2017 11/17/2017 [facility] SPUTUM STAIN / CULTURE Spec Description Sputum 11/17/2017 [facility] SPUTUM STAIN / CULTURE Order Comments None 11/17/2017 [facility] SPUTUM STAIN / CULTURE Gram Stain 2+ WBC's seen 1+ Epithelial cells Mixed bacterial morphotypes seen 11/17/2017 [facility] SPUTUM STAIN / CULTURE Culture 4+ Normal iliana 11/17/2017 [facility] SPUTUM STAIN / CULTURE Report Status Final 11/19/2017 11/17/2017 [facility] UA CHEMISTRIES Color Lolly 11/17/2017 [facility] UA CHEMISTRIES Clarity Hazy 11/17/2017 [facility] UA CHEMISTRIES Spec Luckey 1.029 1.001 - 1.035 11/17/2017 [facility] UA CHEMISTRIES pH 5.0 5 - 8 11/17/2017 [facility] UA CHEMISTRIES Protein 3+ NEG 11/17/2017 [facility] UA CHEMISTRIES Glucose Negative NEG 11/17/2017 [facility] UA CHEMISTRIES Ketone 1+ NEG 11/17/2017 [facility] UA CHEMISTRIES Bilirubin Negative NEG 11/17/2017 [facility] UA CHEMISTRIES Nitrate Negative NEG 11/17/2017 [facility] UA CHEMISTRIES Urobilinogen 2.0 0.2 - 1 11/17/2017 [facility] UA CHEMISTRIES Leukocyte Negative NEG 11/17/2017 [facility] UA CHEMISTRIES Blood 2+ NEG 11/17/2017 [facility] UA CHEMISTRIES RBC 4 0 - 4 11/17/2017 [facility] UA CHEMISTRIES WBC 5 0 - 5 11/17/2017 [facility] UA CHEMISTRIES Epithelial Cell 2 /HPF 11/17/2017 [facility] UA CHEMISTRIES Mucous Present 11/17/2017 [facility] UA CHEMISTRIES Lab Interpretation Abnormal 11/17/2017 [facility] BLOOD CULTURE Spec Description Blood Left arm 11/16/2017 [facility] BLOOD CULTURE Order Comments None 11/16/2017 [facility] BLOOD CULTURE Culture No growth 5 days 11/16/2017 [facility] BLOOD CULTURE Report Status Final 11/21/2017 11/16/2017 [facility] B NATRIURETIC PEPT B Natriuretic Pept 80 <101 11/16/2017 [facility] PT/INR PT 13.8 11.8 - 15.0 11/16/2017 [facility] PT/INR INR 1.1 SUGGESTED THERAPEUTIC RANGES: INR 2.0-3.0 for MODERATE INTENSITY ANTICOAGULATION INR 2.5-3.5 for HIGH INTENSITY ANTICOAGULATION 11/16/2017 [facility] COMPREHENSIVE METABOLIC PANEL(DBIL NOT INCLUDED) Albumin 3.6 3.4 - 5 11/16/2017 [facility] COMPREHENSIVE METABOLIC PANEL(DBIL NOT INCLUDED) Calcium 8.4 8.5 - 10.2 11/16/2017 [facility] COMPREHENSIVE METABOLIC PANEL(DBIL NOT INCLUDED) CO2 22.6 21 - 32 11/16/2017 [facility] COMPREHENSIVE METABOLIC PANEL(DBIL NOT INCLUDED) Chloride 95 98 - 107 11/16/2017 [facility] COMPREHENSIVE METABOLIC PANEL(DBIL NOT INCLUDED) Creatinine 1.32 0.6 - 1.3 11/16/2017 [facility] COMPREHENSIVE METABOLIC PANEL(DBIL NOT INCLUDED) Glucose 91 70 - 99 11/16/2017 [facility] COMPREHENSIVE METABOLIC PANEL(DBIL NOT INCLUDED) Alk Phos 105 45 - 117 11/16/2017 [facility] COMPREHENSIVE METABOLIC PANEL(DBIL NOT INCLUDED) Potassium 4.1 3.5 - 5.1 11/16/2017 [facility] COMPREHENSIVE METABOLIC PANEL(DBIL NOT INCLUDED) Sodium 131 136 - 145 11/16/2017 [facility] COMPREHENSIVE METABOLIC PANEL(DBIL NOT INCLUDED) ALT 21 12 - 78 11/16/2017 [facility] COMPREHENSIVE METABOLIC PANEL(DBIL NOT INCLUDED) AST 32 15 - 37 11/16/2017 [facility] COMPREHENSIVE METABOLIC PANEL(DBIL NOT INCLUDED) Urea Nitrogen 29 7 - 18 11/16/2017 [facility] METABOLIC PANEL(DBIL NOT INCLUDED) T Bilirubin 0.7 0.2 - 1 11/16/2017 [facility] COMPREHENSIVE METABOLIC PANEL(DBIL NOT INCLUDED) T Protein 7.9 6.4 - 8.2 11/16/2017 [facility] COMPREHENSIVE METABOLIC PANEL(DBIL NOT INCLUDED) GFR, Estimated 57 mL/min/1.73 m2 11/16/2017 [facility] COMPREHENSIVE METABOLIC PANEL(DBIL NOT INCLUDED) GFR, Estim, Afr-Am >60 mL/min/1.73 m2 11/16/2017 [facility] COMPREHENSIVE METABOLIC PANEL(DBIL NOT INCLUDED) Anion Gap 13.4 11/16/2017 [facility] METABOLIC PANEL(DBIL NOT INCLUDED) Lab Interpretation Abnormal 11/16/2017 [facility] OCCULT BLOOD ICT Occult Blood ICT Negative NEG 11/16/2017 [facility] 12 LEAD EKG 12 LEAD EKG FOR [facility] Test Date:2017-11-16 Pat Name: NELY Willamspartment: : Gender: MTechnician: [id number] :1965 Requested By: Order Number:Christal STAFFORD: Carmen Figueroa M.D. Measurements IntervalsAxis Rate: 119P:54 FL: 151QRS:70 QRSD: 83 T:65 QT: 317 QTc:447 Interpretive Statements SINUS TACHYCARDIA POSSIBLE LEFT ATRIAL ENLARGEMENT ANTEROSEPTAL MYOCARDIAL INFARCTION, OF INDETERMINATE AGE Electronically Signed On 11-16-17 14:02:15 KILNMAN by Carmen Figueroa M.D. 11/16/2017 [facility] TROPONIN I POC Troponin POC 0.02 0 - 0.08 11/16/2017 [facility] POC CO2 POC 22 21 - 32 11/16/2017 [facility] POC Chloride POC 96 98 - 107 11/16/2017 [facility] POC Potassium POC 3.7 3.5 - 5.1 11/16/2017 [facility] POC Sodium POC 135 136 - 145 11/16/2017 [facility] POC Glucose POC 117 74 - 106 11/16/2017 [facility] POC Urea Nitrogen POC 30 7 - 18 11/16/2017 [facility] POC Creatinine POC 1.4 0.6 - 1.3 11/16/2017 [facility] POC Calcium Ionized POC 1.06 1.15 - 1.29 11/16/2017 [facility] POC Hemoglobin POC 19.0 14 - 18 11/16/2017 [facility] POC Hematocrit POC 56.0 40 - 54 11/16/2017 [facility] POC GFR, Estimated 53 mL/min/1.73 m2 11/16/2017 [facility] POC GFR, Estim, Afr-Am >60 mL/min/1.73 m2 11/16/2017 [facility] POC Lab Interpretation Abnormal 11/16/2017 [facility] 12 LEAD EKG 12 LEAD EKG FOR [facility] Test Date:2017-11-03 Pat Name: NELY Aguilar: : Gender: MTechnician: [id number] :1965 Requested By: Order Number:Reading MD: Carmen Figueroa M.D. Measurements IntervalsAxis Rate: 71 P:51 FL: 152QRS:59 QRSD: 96 T:89 QT: 418 QTc:454 Interpretive Statements Normal sinus rhythm Anterior infarct, age undetermined Abnormal ECG Electronically Signed On 11-03-17 11:10:14 KILNMAN by Carmen Figueroa M.D. 11/03/2017 [facility] CREATININE Creatinine 1.30 0.6 - 1.3 10/10/2017 [facility] CREATININE GFR, Estimated 58 mL/min/1.73 m2 10/10/2017 [facility] CREATININE GFR, Estim, Afr-Am >60 mL/min/1.73 m2 10/10/2017 [facility] Pathology Reports No Data Provided for [...] Ventura Beltran MD, 11/16/2017 5:26 PM 11/16/[address] [facility] [address] HEAD W/O CONTRAST IMPRESSION: 1.Minimal [...] Alexia Mantilla MD, 10/17/2017 4:14 PM 10/17/2017 [facility] Consultation Notes No Data Provided for This Section Discharge Summaries No Data Provided for This Section History and Physicals No Data Provided for This Section Vital Signs Vital Sign Value Date Comments Source Systolic (mm Hg) 137 12/01/2017 [facility] Diastolic (mm Hg) 87 12/01/2017 [facility] Heart Rate 75 12/01/2017 [facility] Temperature Oral (F) 36.5 Mary 12/01/2017 [facility] Respitory Rate 18 12/01/2017 [facility] Height 170.7 cm 12/01/2017 [facility] Weight 92.08 12/01/2017 [facility] BMI Calculated 31.60 12/01/2017 [facility] Weight 203 10/02/2014 [facility] [place] Height 68 10/02/2014 [facility] [place] Temperature Oral (F) 96.9 F 10/02/2014 [facility] Heart Rate 69 10/02/2014 [facility] [place] Diastolic (mm Hg) 85 10/02/2014 [facility] [place] Systolic (mm Hg) 130 10/02/2014 [facility] [place] Weight 195 07/03/2014 [facility] [place] Height 68 07/03/2014 [facility] [...] Status Source Josefa Nick MD PA Unknown [id number] 05/27/2014 05/27/2014 Josefa Nick MD PA Unknown [id number] 05/27/2014 05/27/2014 Josefa Nick MD PA Unknown [id number] 05/27/2014 05/27/2014 Josefa Nick MD PA Unknown [id number] 05/27/2014 05/27/2014 Josefa Nick MD PA Unknown [id number] 06/10/2014 06/10/2014 Josefa Nick, MD PA Unknown [id number] 06/10/2014 06/10/2014 Josefa Nick MD PA Unknown [id number] 06/10/2014 06/10/2014 Josefa Nick MD PA Unknown [id number] 07/03/2014 07/03/2014 Josefa Nick MD PA Unknown [id number] 07/03/2014 07/03/2014 Josefa Nick MD PA Unknown [id number] 10/02/2014 10/02/2014 Josefa Nick MD PA Unknown [id number] 10/02/2014 10/02/2014 Josefa Nick MD PA Unknown [id number] 12/09/2014 12/09/2014 Josefa Nick MD PA Unknown [id number] 12/09/2014 12/09/2014 [facility] Visit [id number] 10/06/2017 [facility] Office Visit [id number] Vision loss of right eye Concern about stroke without diagnosis CAD S/P percutaneous coronary angioplasty Chronic congestive heart failure, unspecified congestive heart failure type Smoker Wheezing S/P colonoscopy with polypectomy Family history of colon cancer in mother Everette Rojas MD 10/06/2017 10/06/2017 [facility] Visit [id number] 10/09/2017 [facility] Visit [id number] 10/10/2017 [facility] Orders Only [id number] CAD S/P percutaneous coronary angioplasty Chronic systolic congestive heart failure Smoker Chronic chest pain Everette Rojas MD 10/13/2017 [facility] Telephone [id number] Right facial numbness Vision loss of right eye Everette Rojas MD 10/17/[address] [facility] [address] Scan SC Ancillary Procedure [id number] Everette Rojas MD 10/17/2017 10/17/2017 [facility] Visit [id number] 10/24/2017 [facility] Telephone [id number] Sarah Perkins RN 11/02/2017 [facility] Orders Only [id number] CAD S/P percutaneous coronary angioplasty Chronic systolic congestive heart failure Everette Rojas MD 11/02/2017 [facility] [id number] CAD S/P percutaneous coronary angioplasty Chronic systolic congestive heart failure Everette Rojas MD 11/03/2017 11/03/2017 [facility] ASK YOUR NURSE PROGRAM Nurse Triage [id number] Xiomara Bolaños RN 11/16/[address] [facility] Emergency [id number] Cough Influenza SIRS (systemic inflammatory response syndrome) Tachypnea Tachycardia CAD S/P percutaneous coronary angioplasty Wheezing Influenza B Elton Yang MD 11/16/2017 11/17/2017 [facility] Neuro [facility] Office Visit [id number] Vision loss of right eye Pato Morgan MD 11/20/2017 11/20/2017 [facility] Telephone [id number] Brittney Gil MD 11/27/2017 [facility] Office Visit [id number] Glaucomatous optic atrophy of right eye Transient visual loss of both eyes Blindness of one eye with normal vision in contralateral eye Elevated erythrocyte sedimentation rate Elevated C-reactive protein (CRP) Myopia of left eye with astigmatism and presbyopia Everette Rojas MD 11/27/2017 11/27/2017 [facility] Ophthalmology Nurse Only [id number] Isha Crawford 11/29/2017 11/29/2017 [facility] Office Visit [id number] Neovascular glaucoma, right eye, 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 Clinical Case Mgt [id number] Cherri Graham RN 12/01/2017 [facility] Office Visit [id number] Financial difficulties Blindness right eye category 5, normal vision left eye Glaucomatous optic atrophy of right eye CAD S/P percutaneous coronary angioplasty Everette Rojas MD 12/01/2017 12/01/2017 [facility] BT Ophthalmology Orders Only [id number] Ocular ischemic syndrome Neovascular glaucoma, right eye, severe stage Cedric Santana MD 12/06/2017 [facility] BT Hospital Encounter [id number] Everette Rojas MD 12/14/2017 12/14/2017 [facility] Procedures Procedure Code Date Perfomer Comments Source HEMOGLOBIN A1C 36602 11/20/2017 [facility] SED RATE 98279 11/20/2017 [facility] C-REACTIVE PROT 98244 11/20/2017 [facility] TSH 55231 11/20/2017 [facility] VITAMIN B12 85542 11/20/2017 [facility] SYPHILIS SCREEN FOR INFECTION 53882 11/20/2017 [facility] LIPID PROFILE 72694 11/20/2017 [facility] ELECTROPH, BLD 12463 11/20/2017 [facility] BASIC METABOLIC PANEL 66395 11/17/2017 [facility] XRAY CHEST 2 VIEWS 38064 11/16/2017 [facility] INFLUENZA RSV SUBTYPE 01155 11/16/2017 [facility] RAPID INFLUENZA SCREEN 78672 11/16/2017 [facility] SPUTUM STAIN / CULTURE 66191 11/16/2017 [facility] [place] [address] 11/16/2017 [facility] UA CHEMISTRIES 08382 11/16/2017 [facility] COMPREHENSIVE METABOLIC PANEL(DBIL NOT INCLUDED) 25338 11/16/2017 [facility] MAGNESIUM 97699 11/16/2017 [facility] B NATRIURETIC PEPT 08836 11/16/2017 [facility] PT/INR 79066 11/16/2017 [facility] BLOOD CULTURE 08772 11/16/2017 [facility] TROPONIN I POC 12705 11/16/2017 [facility] CBC/DIFF 10038 11/16/2017 [facility] BMP POC 08359 11/16/2017 [place] [address] LEAD EKG 66479 11/03/2017 [facility] CT HEAD W/O CONTRAST 50388 10/17/2017 [facility] OCCULT BLOOD ICT 97526 10/09/2017 [facility] CREATININE 51996 10/09/2017 [facility] Assessment and Plan No Data Provided for This Section Plan of Care Plan of Care Date Source CORONARY ARTERY DISEASE AGE 18 AND UP 11/20/2018 [facility] Colorectal Cancer Scrn Annual (FIT/FOBT) Age 50 to 75 11/16/2018 [facility] IMM Influenza Seasonal Jul to December (>/=19 yrs) 07/30/2018 [facility] Social History Social History Date Source [...] at BirthDate Recorded Not on file 12/01/2017 [facility] Social History ElementQualifiersDate Reported Smoking . Status Current Smoker 1 pack per day, Completed counseling for quiting smoking Yes February 12, 2015 Alcohol Use No. February 12, 2015 Alcohol Screening: No. February 12, 2015 Marital Status: . February 12, 2015 Do you drink alcohol? No. 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
--- NOTE | 2019-07-06 19:00 | NUR ---
Walking rounds Report received from day shift RN. Patient is in Bed, alert and oriented.
[2019-07-06 20:00] VITALS: BP 117/74
[2019-07-06] MEDS: CARVEDILOL 12.5 MG TAB PO SCH ×2 (20:00→20:29)
[2019-07-06] MEDS: CRESTOR 10MG PO SCH ×2 (20:29→20:36)
[2019-07-06 20:30] LABS: CREATINE KINASE 141 IU/L (30-200)
[2019-07-06] MEDS: MORPHINE SULFATE 2 MG/ML SYR 1ML IV PRN (20:36)
[2019-07-06 21:00] VITALS: BP 117/74
[2019-07-06 22:21] VITALS: BP 117/74
[2019-07-07] VITALS: BP 105/59
[2019-07-07] MEDS: MORPHINE SULFATE 2 MG/ML SYR 1ML IV PRN (00:36)
--- NOTE | 2019-07-07 01:35 | History and Physical ---
CHIEF COMPLAINT: Episode of palpitation associated with chest heaviness today at home. HISTORY OF PRESENT ILLNESS: A 54-year-old pleasant white male with past medical history of multiple medical problems, was admitted at [facility] in [facility] this afternoon with above complaints. As per the patient, today morning he had sudden onset of heart racing, pumping episode lasting for a few minutes and then the sensation was gone. Also, the patient started having a chest heaviness on and off since this morning and hence the patient came to ER. In the emergency room, the patient was seen by emergency room doctor, Dr. Mcqueen and was admitted for further care and treatment. At present, the patient is lying on the bed, in no apparent distress. No chest pain. No shortness of breath. No nausea, vomiting, diarrhea. No abdominal pain. No loss of consciousness. No palpitations. No headaches. No hematemesis. No melena. No hematuria or dysuria. No fever. No cough. No witnessed seizures. PAST MEDICAL HISTORY: 1. CAD status post PTCA stents. 2. COPD. 3. Hypertension. 4. Dyslipidemia. MEDICATIONS: Nitroglycerin 0.4 mg sublingual p.r.n. for chest pain, Zantac 150 mg p.o. at bedtime, aspirin 81 mg p.o. daily, Plavix 75 mg p.o. daily, isosorbide mononitrate ER 30 mg p.o. daily, losartan 100 mg p.o. daily, Crestor 10 mg p.o. daily, Trelegy Ellipta 1 puff daily, Coreg 6.25 mg p.o. b.i.d. ALLERGIES: PENICILLIN AND TAGAMET. SURGICAL HISTORY: Hernia surgery. FAMILY HISTORY: Mother diagnosed with diabetes and colon cancer. SOCIAL HISTORY: Smoking plus no alcohol. No illicit drug use. The patient has been repeatedly advised to quit smoking. REVIEW OF SYSTEMS: As per HPI. PHYSICAL EXAMINATION: GENERAL: The patient is alert, awake, oriented x3, in no apparent distress, lying in bed. VITAL SIGNS: Temperature is 98, pulse is 75 per minute, respiratory rate 16 per minute, blood pressure is 110/80, and saturation is 98%. SKIN: No cyanosis. No icterus. No pallor. HEENT: Normocephalic, atraumatic. PERRLA plus. NECK: Soft and supple. No JVD. No carotid bruit. No lymphadenopathy. LUNGS: Air entry bilaterally equal. HEART: S1 and S2 present. No murmur, gallop, or rub. ABDOMEN: Soft, nontender. Bowel sounds plus. MANAGER IMPLEMENTATION: Alert, awake, oriented x3. No focal deficit. EXTREMITIES: No cyanosis, no clubbing, no edema. Peripheral pulses palpable. No calf pain. LABORATORY DATA: On admission to ER, white count is 9.5, hemoglobin is 16.2, hematocrit is 47.7, platelets 313. Sodium 136, potassium 3.7, chloride 103, bicarb 22, BUN 8, creatinine 1.23, glucose 150. LFTs normal. Cardiac enzymes x1 negative. BNP 31.2. INR 0.96. Chest x-ray, no acute radiographic abnormality. EKG shows on admission to ER, sinus tachy at 104 beats per minute, ST-T changes in anteroseptal leads. ASSESSMENT: 1. Chest pain with palpitations. 2. History of coronary artery disease, chronic obstructive pulmonary disease, hypertension, dyslipidemia. PLAN: Admit the patient to [facility]. Continue aspirin, Plavix, Coreg, and Crestor. Serial cardiac enzymes, EKGs, 2D echo. Cardiology consultation, Dr. Ben Joy. ER doctor has informed him further care and treatment as per clinical course of the patient in the hospital. Discussed with the patient and at bedside in detail. MD JULIANO Davey/[place] /[id number]
[2019-07-07 04:00] VITALS: BP 105/69
[2019-07-07 05:26] LABS: BASOPHILS # (AUTO) 0.1 (0.0-0.1); BASOPHILS % 1.3 % (0.0-1.0); EOSINOPHILS # (AUTO) 0.3 (0.0-0.4); EOSINOPHILS % 3.1 % (0.0-6.0); HEMATOCRIT 44.1 % (38.2-49.6); HEMOGLOBIN 14.8 g/dL (14.0-18.0); LYMPHOCYTES # (AUTO) 2.6 (1.0-3.2); LYMPHOCYTES % 29.1 % (18.0-39.1); MEAN CORPUSCULAR HEMOGLOBIN 30.7 pg (28-32); MEAN CORPUSCULAR HGB CONC 33.6 g/dL (31-35); MEAN CORPUSCULAR VOLUME 91.5 fL (81-99); MONOCYTES # (AUTO) 1.1 (0.2-0.8); NEUTROPHILS # (AUTO) 4.8 (2.1-6.9); NEUTROPHILS % 54.2 % (38.7-80.0); PLATELET COUNT 267 x10e3/uL (140-360); RED BLOOD COUNT 4.82 x10e6/uL (4.3-5.7); RED CELL DISTRIBUTION WIDTH 13.8 % (11.7-14.4)
[2019-07-07 05:47] LABS: ALANINE AMINOTRANSFERASE 9 IU/L (0-55); ALBUMIN 3.3 g/dL (3.5-5.0); ALBUMIN/GLOBULIN RATIO 1.1 (0.8-2.0); ALKALINE PHOSPHATASE 94 IU/L (40-150); ANION GAP 12.2 mmol/L (8-16); BLOOD UREA NITROGEN 11 mg/dL (7-26); BUN/CREATININE RATIO 9 (6-25); CALCIUM 9.5 mg/dL (8.4-10.2); CARBON DIOXIDE 29 mmol/L (22-29); CHLORIDE 102 mmol/L (98-107); CHOLESTEROL 136 MD/DL (0-199); CREATININE, SERUM 1.23 mg/dL (0.72-1.25); EST GLOMERULAR FILTRATION RATE > 60 ML/MIN (60-); GLUCOSE 92 mg/dL (74-118); POTASSIUM 4.2 mmol/L (3.5-5.1); SODIUM 139 mmol/L (136-145); TRIGLYCERIDES 100 MG/DL (0-149)
--- NOTE | 2019-07-07 06:40 | NUR ---
rounded with stitch welder nurse, patient resting comfortably and in no distress. call laurent within reach and bed in lowest position.
[2019-07-07 06:41] LABS: CREATINE KINASE MB 1.5 ng/mL (0-5.0)
[2019-07-07] MEDS ORDERED: PANTOPRAZOLE SOD 40 MG TABEC PO SCH (07:30)
[2019-07-07 08:20] VITALS: BP 131/78
[2019-07-07] MEDS: CARVEDILOL 12.5 MG TAB PO SCH ×2 (08:20→17:00)
[2019-07-07 08:57] VITALS: BP 131/78
[2019-07-07] MEDS ORDERED: CLOPIDOGREL BISULFATE 75 MG TAB PO SCH (09:00)
[2019-07-07] MEDS ORDERED: ASPIRIN 81 MG ENTERIC COATED PO SCH (09:00)
[2019-07-07 12:20] VITALS: BP 145/80
[2019-07-07 13:00] LABS: CHOL/HDL RATIO 4.4 (3.9-4.7); HDL CHOLESTEROL 31 MG/DL (40-60); LDL CHOLESTEROL 85 MG/DL (60-130)
--- NOTE | 2019-07-07 13:40 | NUR ---
Visit made by the Spiritual Care Department Pastoral Visitor, Glynn Mario. PV provided pastoral presence, hospitality, and supportive listening. Pastoral Visitor informed pt/family of the scope of [employer] and availability. ISAIAS BRUCE [employer] Spiritual Care Department O: [phone] Pager: [phone] ([phone] number calling from)
[2019-07-07 14:07] LABS: CREATINE KINASE MB 1.6 ng/mL (0-5.0)
[2019-07-07 16:16] VITALS: BP 155/90
--- NOTE | 2019-07-07 18:44 | NUR ---
rounded with shift leader nurse, patient aware of change and in no distress. call laurent within reach and bed in lowest position.
--- NOTE | 2019-07-07 19:00 | NUR ---
patient alert and oriented. discharge instructions given at this time, patient verbalized understanding. IV discontinued, catheter in tact and small dressing applied. patient refused wheelchair assistance and will ambulate to personal auto for to drive home.
--- NOTE | 2019-07-08 05:45 | Consultation ---
DATE OF CONSULTATION: 07/07/2019 Cardiology Consult Note REASON FOR CONSULT: Chest pain. CHIEF COMPLAINT: Chest pain and palpitations. HISTORY OF PRESENT ILLNESS: The patient is a 54-year-old man who is well known to our service. He has history of coronary artery disease with stents placed many years ago, hypertension, hyperlipidemia, who presented with an episode of chest pressure and palpitations at home. He was at rest. He took two nitros. There was no change in his chest pain. No change with walking around or exertion. He was not had similar other chest pain episode recently and came to the hospital, was admitted to rule out acute LA. Has remained chest pain-free since admission. Feels well. No heart failure symptoms. No fevers, chills. No lower extremity edema. PAST MEDICAL HISTORY: 1. Coronary artery disease, status post stents many years ago. 2. Chronic obstructive pulmonary disease. 3. Hypertension. 4. Hyperlipidemia. 5. GERD. OUTPATIENT MEDICATIONS: Reviewed. ALLERGIES: THE PATIENT IS ALLERGIC TO PENICILLIN. FAMILY HISTORY: Noncontributory. SOCIAL HISTORY: The patient does not smoke, drink, or abuse drugs. REVIEW OF SYSTEMS: As per HPI, otherwise negative. PHYSICAL EXAMINATION: VITAL SIGNS: Temperature afebrile, pulse 50, respiratory rate 20, blood pressure 155/97, 99% on room air. GENERAL: Obese, middle-aged man, in no acute distress. CARDIOVASCULAR: Regular rate and rhythm. No murmurs, rubs, or gallops. LUNGS: Clear to auscultation bilaterally. ABDOMEN: Obese, soft, nontender, nondistended. NEURO AND PSYCH: Alert and oriented to person, place, and time. Normal affect. INPATIENT MEDICATIONS: Reviewed. LABORATORY DATA: Reviewed. Troponins negative x3. TELEMETRY DATA: Reviewed, shows normal sinus rhythm. ASSESSMENT AND PLAN: 1. Chest pain. 2. History of coronary artery disease, status post stents. 3. Hypertension. 4. Hyperlipidemia. PLAN: The patient has been ruled out for acute myocardial infarction. Discussed with the patient regarding getting an inpatient stress test versus following up in the office for stress test in the office. The patient prefers to go home and follow up in the office for an outpatient stress test. Discussed ER precautions with the patient. In case chest pain recurs, he may need to return. The patient understands and will follow up in clinic with Dr. Jones next week. MD MIKHAIL Clinton /[id number]
[2019-07-23] MEDS ORDERED: CLOPIDOGREL75 MG PO (10:21)
[2019-07-23] MEDS ORDERED: TRELEGY ELLIPTA INH (10:21)
[2019-07-23] MEDS ORDERED: CARVEDILOL3.125 MG PO (10:21)
== END 2019-07-07 19:02 | disposition home or self-care (01) ==
LOC: ER 15:06 → ERHOLD 17:45 → MED/SURG 18:42
PROVIDERS: ADMIT Internal Medicine; ATTEND Internal Medicine
DX: R07.9 Chest pain, unspecified (principal); R00.2 Palpitations; I25.10 Atherosclerotic heart disease of native coronary artery without angina pectoris; J44.9 Chronic obstructive pulmonary disease, unspecified; I10 Essential (primary) hypertension; E78.5 Hyperlipidemia, unspecified; Z95.5 Presence of coronary angioplasty implant and graft; Z88.0 Allergy status to penicillin; Z88.8 Allergy status to other drugs, medicaments and biological substances; Z83.3 Family history of diabetes mellitus; Z80.0 Family history of malignant neoplasm of digestive organs; F17.210 Nicotine dependence, cigarettes, uncomplicated; K21.9 Gastro-esophageal reflux disease without esophagitis; Z91.018 Allergy to other foods
CPT/HCPCS: 36415 ×2; 71045; 80053 ×2; 80061; 81001; 82550 ×2; 82553 ×2; 82948; 83880; 84484 ×2; 85025 ×2; 85610; 85730; 93005 ×2; 93306; 94640; 99284; G0378 ×2; J2270 ×3; S0164; J2405

== ENCOUNTER → 2019-07-26 | Day surgery (SDC) | payer MEDICARE ==
[2019-07-23 10:59] LABS: BASOPHILS # (AUTO) 0.2 (0.0-0.1); BASOPHILS % 1.6 % (0.0-1.0); EOSINOPHILS # (AUTO) 0.4 (0.0-0.4); EOSINOPHILS % 3.7 % (0.0-6.0); HEMATOCRIT 48.2 % (38.2-49.6); LYMPHOCYTES # (AUTO) 2.4 (1.0-3.2); LYMPHOCYTES % 23.8 % (18.0-39.1); MEAN CORPUSCULAR HEMOGLOBIN 30.2 pg (28-32); MEAN CORPUSCULAR HGB CONC 33.2 g/dL (31-35); MEAN CORPUSCULAR VOLUME 90.9 fL (81-99); MONOCYTES # (AUTO) 1.2 (0.2-0.8); MONOCYTES % 11.4 % (4.4-11.3); NEUTROPHILS # (AUTO) 6.1 (2.1-6.9); NEUTROPHILS % 59.1 % (38.7-80.0); PLATELET COUNT 317 x10e3/uL (140-360); RED CELL DISTRIBUTION WIDTH 13.8 % (11.7-14.4)
[2019-07-23 11:23] LABS: ALANINE AMINOTRANSFERASE 15 IU/L (0-55); ALBUMIN 3.6 g/dL (3.5-5.0); ALKALINE PHOSPHATASE 119 IU/L (40-150); ANION GAP 12.2 mmol/L (8-16); BLOOD UREA NITROGEN 11 mg/dL (7-26); BUN/CREATININE RATIO 9 (6-25); CALCIUM 9.5 mg/dL (8.4-10.2); CARBON DIOXIDE 26 mmol/L (22-29); CHLORIDE 101 mmol/L (98-107); CREATININE, SERUM 1.23 mg/dL (0.72-1.25); EST GLOMERULAR FILTRATION RATE > 60 ML/MIN (60-); GLUCOSE 92 mg/dL (74-118); POTASSIUM 4.2 mmol/L (3.5-5.1); SODIUM 135 mmol/L (136-145)
[~2019-07-26] VITALS: Ht 172.7 cm; Wt 92.5 kg
[~2019-07-26] MED LIST changes: +ALPRAZOLAM 0.5 MG TAB ONE; +ASPIR 8181 MG PO; +BIVALRIUDIN 250 MG/VIAL VIAL IV ONE; +CARVEDILOL12.5 MG PO; +CARVEDILOL3.125 MG PO; +CLOPIDOGREL75 MG PO; +CRESTOR10 MG PO; +DIPHENHYDRAMINE HCL 25 MG CAP ONE; +FENTANYL CITRATE/PF 100MCG/2 ML INJ ONE; -GADOBENATE DIMEGLUMINE 0 ML IV ONE; +HEPARIN SOD (PORCINE) 1000 UNIT/ML 30ML ONE; +HEPARIN SOD/SOD CHLORIDE 2,000 ML ONE; +IOPAMIDOL 370 MG/ML 200 ML INFUS..BTL INJ ONE; +ISOSORBIDE MONO30 MG PO; +LIDOCAINE HCL 2% 30 ML TUBE ONE; +LIDOCAINE HCL 2% LOCAL 20 ML VIAL ONE; +LOSARTAN POTAS100 MG PO; +LOSARTAN POTASS25 MG PO; +MIDAZOLAM HCL 2 MG/2 ML VIAL ONE; +NITROGLYCERIN0.4 MG SL; +SODIUM CHLORIDE 0.9% 1000ML 1,000 ML ONE; +SODIUM CHLORIDE 0.9% 50ML 0 ML ONE; +TRELEGY ELLIPTA INH; +VERAPAMIL HCL 2.5 MG/ML 2 ML VIAL ONE; +ZANTAC150 MG PO
--- OUTSIDE RECORDS SUMMARY | 2019-07-26 11:24 | XMS REPORT | Continuity of Care Document ---
Author Author People to Remember Organization [employer] [facility] Address Unknown Phone Unavailable Care Team Providers Care Bar Roller Name Role Phone [employer] [facility] Unavailable Unavailable Problems Problem Status Onset Date Classification Date Reported Comments Source Age-related nuclear cataract of both eyes Active 11/29/2017 Problem 09/10/2018 [facility] Blindness right eye category 5, normal vision left eye Active 11/29/2017 Problem 09/10/2018 [facility] Transient visual loss of both eyes Active 11/27/2017 Problem 09/10/2018 [facility] Elevated C-reactive protein (CRP) Active 11/27/2017 Problem 09/10/2018 [facility] Elevated erythrocyte sedimentation rate Active 11/27/2017 Problem 09/10/2018 [facility] 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 11/27/2017 Problem 09/10/2018 [facility] Chronic systolic congestive heart failure Active 10/13/2017 Problem 09/10/2018 [facility] Vision loss of right eye Active 10/06/2017 Problem 09/10/2018 [facility] CAD S/P percutaneous coronary angioplasty Active 10/06/2017 Problem 09/10/2018 [facility] Chronic congestive heart failure Active 10/06/2017 Problem 09/10/2018 [facility] Smoker Active 10/06/2017 Problem 09/10/2018 [facility] Concern about stroke without diagnosis Active 10/06/2017 Problem 09/10/2018 [facility] S/P colonoscopy with polypectomy Active 10/06/2017 Problem 09/10/2018 [facility] Family history of colon cancer in mother Active 10/06/2017 Problem 09/10/2018 [facility] Wheezing Active 10/06/2017 Problem 09/10/2018 [facility] Abnormal EKG Active Diagnosis 09/23/2015 Josefa Nick CAD, [place] Coronary Artery Active Problem 09/23/2015 Josefa Nick Hypercholesterolemia Active Problem 09/23/2015 Josefa Nick Atheroscler of [place] artery of both legs with intermit claudication Active Problem 09/23/2015 Josefa Nick Shortness of breath Active Problem 09/23/2015 Josefa Nick Ischemic cardiomyopathy Active Problem 09/23/2015 Josefa [place] Status Active Problem 09/23/2015 Josefa [place] Acute myocardial infarction of anterolateral wall, initial episode of care Active Problem 09/23/2015 Josefa [place] Angina Active Problem 09/23/2015 Josefa [place] Old myocardial infarction Active Problem 09/23/2015 Josefa [place] Mitral valve disorders Active Problem 09/23/2015 Josefa [place] Cough Active Problem 09/10/2018 [facility] Influenza Active Problem 09/10/2018 [facility] Tachycardia Active Problem 09/10/2018 [facility] Tachypnea Active Problem 09/10/2018 [facility] SIRS (systemic inflammatory response syndrome) Active Problem 09/10/2018 [facility] Medications Medication Details Route Status Patient Instructions Ordering Provider Order Date Source Latanoprost 0.005 % Eye Drops Xalatan 0.005 % Eye Drops Instill 1 Drop in right eye at bedtime nightly. Active 11/27/2017 [facility] Ibuprofen 800 Mg Tablet Take 800 mg by mouth every 8 hours as needed. Oral No Longer Active 11/17/2017 [facility] Oseltamivir 75 Mg Capsule Take 1 capsule by mouth 2 times daily for 5 days. Oral No Longer Active 11/17/2017 [facility] Promethazine 25 Mg Tablet Take 1 tablet by mouth every 6 hours as needed for up to 7 days for Nausea or Vomiting. Oral No Longer Active 11/17/2017 [facility] Albuterol Sulfate Hfa 90 McG/Actuation Aerosol Inhaler Inhalation Inactive 10/06/2017 [facility] Peg 3350-Electrolytes 236 Gram-22.74 Gram-6.74 Gram-5.86 Gram Solution Add lukewarm drinking water to the fill tanvi (4 liters) and shake. Drink as directed by your doctor.. Active 10/06/2017 [facility] Albuterol Sulfate Hfa 90 McG/Actuation Aerosol Inhaler Inhale 2 Puffs by mouth 4 times daily as needed for Wheezing or Shortness of Breath. Inhalation Active 10/06/2017 [facility] Losartan Potassium 1 tablet Orally Active 25 MG Orally Once a day [facility] 07/03/2014 [facility] [place] Livalo 1 tablet Orally Active 4 MG Orally Once a day [facility] 06/10/2014 [facility] Rjshahrzad Coreg 1 tablet with food Orally Active 3.125 MG Orally Twice a day [place] 06/10/2014 Josefa Nick Protonix 1 tablet Orally Active 40 mg [facility] [place] Plavix 1 tablet Orally Active 75 mg Orally Once a day [facility] Mitul [place] Famotidine 1 tablet at bedtime Orally Active 40 mg Orally Once a day [facility] [place]ul [place] Carvedilol 1 tablet Orally Active 3.125 MG Orally Twice a day [facility] Mitul Nick Hyoscyamine Sulfate CR 1 tablet Orally Active 0.375 MG Orally Twice a day [facility] Mitul [place] Pantoprazole Sodium 1 tablet Orally Active 40 mg Orally Once a day [facility] Mitul Nick Florastor 1 capsule Orally Active 250 MG Orally Twice a day [facility] Mitul Nick Aspirin 81 Mg Chewable Tablet Chew and swallow 81 mg by mouth daily. Active [facility] Carvedilol 3.125 Mg Tablet Take 12.5 mg by mouth 2 times daily (with meals) . Oral Active [facility] Clopidogrel 75 Mg Tablet Take 75 mg by mouth daily. Oral Active [facility] Losartan 100 Mg Tablet Take 100 mg by mouth daily. Oral Active [facility] Nitroglycerin 0.[address] 0.4 mg under tongue every 5 minutes as needed Dissolve 1 tablet under the tongue every 5 minutes as needed, up to 3 times. If chest pain persists, call 911. Sublingual Active [facility] ranolazine (RANEXA) 500 mg extended release tablet Take 500 mg by mouth 2 times daily. Oral Active [facility] Isosorbide Mononitrate Er 30 Mg Tablet,Extended Release 24 Hr Take 30 mg by mouth daily. Oral Active [facility] Pravastatin 40 Mg Tablet Take 40 mg by mouth at bedtime nightly. Oral Active [facility] [employer] Allergies, Adverse Reactions, Alerts Substance Category Reaction Severity Reaction type Status Date Reported Comments Source statins Adverse Reaction Muscle weakness Adverse Reaction Active 10/02/2014 Josefa Nick [place] Adverse Reaction anaphylaxis Adverse Reaction Active 10/02/2014 Josefa Nick Tagamet HB Adverse Reaction Shortness of breath Adverse Reaction Active 10/02/2014 Josefa Nick Lisinopril Adverse Reaction Hypotension Adverse Reaction Active 10/02/2014 Josefa Nick Lipitor Adverse Reaction Weakness & muscle aches Adverse Reaction Active 10/02/2014 Josefa Nick Penicillin Rash High Propensity to adverse reactions to drug Active 10/06/2017 [facility] Cimetidine Rash High Propensity to adverse reactions to drug Active 10/06/2017 [facility] Immunizations Immunization Date Given Site Status Last Updated Comments Source Pneumococcal Conjugate <Unspecified> 08/18/2017 completed [facility] Results Order Name Results Value Reference Range Date Interpretation Comments Source ELECTROPH, BLD Protein 7.9 11/21/2017 [facility] ELECTROPH, BLD Comment Electronically signed out by: Maddi Whalen,PhD./[id number] (note) INTERPRETATION: The Alpha-2 fraction is increased. This could represent increase in Alpha-2 macroglobulin or haptoglobin among others. These are acute phas reactants. Alpha-2 globulins may also be increased in renal failure. 11/21/2017 [facility] SYPHILIS SCREEN FOR INFECTION Treponemal Ab Negative 11/21/2017 [facility] SYPHILIS SCREEN FOR INFECTION Final Report Negative 11/21/2017 [facility] HEMOGLOBIN A1C Hemoglobin A1c 6.1 4.3 - 6.1 11/21/2017 [facility] HEMOGLOBIN A1C Est Average Gluc 128.4 11/21/2017 [facility] SED RATE Sed Rate 32 <20 mm/Hr 11/21/2017 [facility] SED RATE Lab Interpretation Abnormal 11/21/2017 [facility] VITAMIN B12 Vitamin B12 297 211 - 911 11/21/2017 [facility] TSH TSH 1.34 0.45 - 3.50 11/21/2017 [facility] C-REACTIVE PROT C-Reactive Prot 8.74 0 - 0.79 11/21/2017 [facility] C-REACTIVE PROT Lab Interpretation Abnormal 11/21/2017 [facility] BASIC METABOLIC PANEL CO2 28 21 - 31 11/20/2017 [facility] BASIC METABOLIC PANEL Chloride 100 98 - 107 11/20/2017 [facility] BASIC METABOLIC PANEL Potassium 3.8 3.5 - 5.1 11/20/2017 [facility] BASIC METABOLIC PANEL Sodium 138 136 - 145 11/20/2017 [facility] BASIC METABOLIC PANEL Glucose 126 70 - 99 11/20/2017 [facility] BASIC METABOLIC PANEL Urea Nitrogen 10 7 - 25 11/20/2017 [facility] BASIC METABOLIC PANEL Creatinine 1.11 0.6 - 1.3 11/20/2017 [facility] BASIC METABOLIC PANEL Anion Gap 10 11/20/2017 [facility] BASIC METABOLIC PANEL Calcium 8.9 8.6 - 10.3 11/20/2017 [facility] BASIC METABOLIC PANEL GFR, Estimated >60 mL/min/1.73 m2 11/20/2017 [facility] BASIC METABOLIC PANEL GFR, Estim, Afr-Am >60 mL/min/1.73 m2 11/20/2017 [facility] BASIC METABOLIC PANEL Lab Interpretation Abnormal 11/20/2017 [facility] LIPID PROFILE Cholesterol 141 0 - 200 11/20/2017 REFERENCE RANGE:
Desirable: <200 mg/dL
Borderline: 200-240 mg/dL
High Risk: >240 mg/dL
National [facility], [facility] [place], [facility] Publication No.[id number] February
2000

[facility] LIPID PROFILE Triglyceride 104 <150 11/20/2017 REFERENCE RANGE:
Normal: <150 mg/dL
Borderline High: 150-199 mg/dL
High: 200-499 mg/dL
Very High: >ki=434 mg/dL

[facility] LIPID PROFILE HDL 24 40 - 60 11/20/2017 [facility] LIPID PROFILE LDL 96 11/20/2017 REFERENCE RANGE:
Optimal: <100 mg/dL
Near Optimal: 100-129 mg/dL
Borderline High: 130-159 mg/dL
High: 160-189 mg/dL
Very High: >lq=293 mg/dL

[facility] LIPID PROFILE Lab Interpretation Abnormal 11/20/2017 [facility] CBC/DIFF WBC 8.3 4.5 - 12 11/20/2017 [facility] CBC/DIFF RBC 4.54 4.60 - 6.20 11/20/2017 [facility] CBC/DIFF Hemoglobin 14.1 14 - 18 11/20/2017 [facility] CBC/DIFF Hematocrit 41.1 40 - 54 11/20/2017 [facility] CBC/DIFF MCV 91 82 - 92 11/20/2017 [facility] CBC/DIFF MCH 31.1 27 - 31 11/20/2017 [facility] CBC/DIFF MCHC 34.3 32 - 36 11/20/2017 [facility] CBC/DIFF RDW 42.5 35.1 - 43.9 11/20/2017 [facility] CBC/DIFF Platelet 352 150 - 400 11/20/2017 [facility] CBC/DIFF Neutrophil 67.0 34 - 67.9 11/20/2017 [facility] CBC/DIFF Lymphocyte 24.0 21.8 - 50 11/20/2017 [facility] CBC/DIFF Atypical Lymph 2 11/20/2017 [facility] CBC/DIFF Monocyte 6.0 5.3 - 12 11/20/2017 [facility] CBC/DIFF Basophil None seen 0.2 - 1.2 11/20/2017 [facility] CBC/DIFF Eosinophil 1.0 0.8 - 5 11/20/2017 [facility] CBC/DIFF NRBC 1 /100 WBC 11/20/2017 [facility] CBC/DIFF Neutrophil, Abs 5.56 1.78 - 5.36 11/20/2017 [facility] CBC/DIFF Lymphocyte, Abs 1.99 1.32 - 3.57 11/20/2017 [facility] CBC/DIFF Monocyte, Abs 0.50 0.3 - 0.82 11/20/2017 [facility] CBC/DIFF Basophil, Abs None seen 0.01 - 0.08 11/20/2017 [facility] CBC/DIFF Eosinophil, Abs 0.08 0.04 - 0.54 11/20/2017 [facility] CBC/DIFF Large Platelets 1+ 11/20/2017 [facility] CBC/DIFF Lab Interpretation Abnormal 11/20/2017 [facility] MAGNESIUM Magnesium 2.4 1.8 - 2.4 11/17/2017 [facility] INFLUENZA RSV SUBTYPE Influenza A Not detected 11/17/2017 [facility] INFLUENZA RSV SUBTYPE Influenza A,H1 Not detected 11/17/2017 [facility] INFLUENZA RSV SUBTYPE Influenza A,H3 Not detected 11/17/2017 [facility] INFLUENZA RSV SUBTYPE Flu A [id number] Not detected 11/17/2017 [facility] INFLUENZA RSV SUBTYPE Influenza B PCR Detected 11/17/2017 [facility] INFLUENZA RSV SUBTYPE RSV A Not detected 11/17/2017 [facility] INFLUENZA RSV SUBTYPE RSV B Not detected This test utilizes FDA cleared [employer] Respiratory Virus Plus Nucleic Acid Test from [employer]. This test is a qualitative multiplexed test for the detection of Influenza A, Influenza A H1, Influenza A H3, Influenza A 2009 H1N1, Influenza B, RSV A and RSV B. 11/17/2017 [facility] [employer], UR Legionella Ag, Ur Negative NEG 11/17/2017 [facility] RAPID INFLUENZA SCREEN Spec Description Nasal 11/17/2017 [facility] RAPID INFLUENZA SCREEN Order Comments None 11/17/2017 [facility] RAPID INFLUENZA SCREEN Direct Exam Negative for Influenza A and B by EIA 11/17/2017 [facility] RAPID INFLUENZA SCREEN Report Status Final 11/16/2017 11/17/2017 [facility] SPUTUM STAIN / CULTURE Spec Description Sputum 11/17/2017 [facility] SPUTUM STAIN / CULTURE Order Comments None 11/17/2017 [facility] SPUTUM STAIN / CULTURE Gram Stain 2+ WBC's seen 1+ Epithelial cells Mixed bacterial morphotypes seen 11/17/2017 [facility] SPUTUM STAIN / CULTURE Culture 4+ Normal iliana 11/17/2017 [facility] SPUTUM STAIN / CULTURE Report Status Final 11/19/2017 11/17/2017 [facility] UA CHEMISTRIES Color Lolly 11/17/2017 [facility] UA CHEMISTRIES Clarity Hazy 11/17/2017 [facility] UA CHEMISTRIES Spec [place] 1.029 1.001 - 1.035 11/17/2017 [facility] UA CHEMISTRIES pH 5.0 5 - 8 11/17/2017 [facility] UA CHEMISTRIES Protein 3+ NEG 11/17/2017 [facility] UA CHEMISTRIES Glucose Negative NEG 11/17/2017 [facility] UA CHEMISTRIES Ketone 1+ NEG 11/17/2017 [facility] UA CHEMISTRIES Bilirubin Negative NEG 11/17/2017 [facility] UA CHEMISTRIES Nitrate Negative NEG 11/17/2017 [facility] UA CHEMISTRIES Urobilinogen 2.0 0.2 - 1 11/17/2017 [facility] UA CHEMISTRIES Leukocyte Negative NEG 11/17/2017 [facility] UA CHEMISTRIES Blood 2+ NEG 11/17/2017 [facility] UA CHEMISTRIES RBC 4 0 - 4 11/17/2017 [facility] UA CHEMISTRIES WBC 5 0 - 5 11/17/2017 [facility] UA CHEMISTRIES Epithelial Cell 2 /HPF 11/17/2017 [facility] UA CHEMISTRIES Mucous Present 11/17/2017 [facility] UA CHEMISTRIES Lab Interpretation Abnormal 11/17/2017 [facility] BLOOD CULTURE Spec Description Blood Left arm 11/16/2017 [facility] BLOOD CULTURE Order Comments None 11/16/2017 [facility] BLOOD CULTURE Culture No growth 5 days 11/16/2017 [facility] BLOOD CULTURE Report Status Final 11/21/2017 11/16/2017 [facility] B NATRIURETIC PEPT B Natriuretic Pept 80 <101 11/16/2017 [facility] PT/INR PT 13.8 11.8 - 15.0 11/16/2017 [facility] PT/INR INR 1.1 SUGGESTED THERAPEUTIC RANGES: INR 2.0-3.0 for MODERATE INTENSITY ANTICOAGULATION INR 2.5-3.5 for HIGH INTENSITY ANTICOAGULATION 11/16/2017 [facility] COMPREHENSIVE METABOLIC PANEL(DBIL NOT INCLUDED) Albumin 3.6 3.4 - 5 11/16/2017 [facility] COMPREHENSIVE METABOLIC PANEL(DBIL NOT INCLUDED) Calcium 8.4 8.5 - 10.2 11/16/2017 [facility] COMPREHENSIVE METABOLIC PANEL(DBIL NOT INCLUDED) CO2 22.6 21 - 32 11/16/2017 [facility] COMPREHENSIVE METABOLIC PANEL(DBIL NOT INCLUDED) Chloride 95 98 - 107 11/16/2017 [facility] COMPREHENSIVE METABOLIC PANEL(DBIL NOT INCLUDED) Creatinine 1.32 0.6 - 1.3 11/16/2017 [facility] COMPREHENSIVE METABOLIC PANEL(DBIL NOT INCLUDED) Glucose 91 70 - 99 11/16/2017 [facility] COMPREHENSIVE METABOLIC PANEL(DBIL NOT INCLUDED) Alk Phos 105 45 - 117 11/16/2017 [facility] COMPREHENSIVE METABOLIC PANEL(DBIL NOT INCLUDED) Potassium 4.1 3.5 - 5.1 11/16/2017 [facility] COMPREHENSIVE METABOLIC PANEL(DBIL NOT INCLUDED) Sodium 131 136 - 145 11/16/2017 [facility] COMPREHENSIVE METABOLIC PANEL(DBIL NOT INCLUDED) ALT 21 12 - 78 11/16/2017 [facility] COMPREHENSIVE METABOLIC PANEL(DBIL NOT INCLUDED) AST 32 15 - 37 11/16/2017 [facility] COMPREHENSIVE METABOLIC PANEL(DBIL NOT INCLUDED) Urea Nitrogen 29 7 - 18 11/16/2017 [facility] METABOLIC PANEL(DBIL NOT INCLUDED) T Bilirubin 0.7 0.2 - 1 11/16/2017 [facility] COMPREHENSIVE METABOLIC PANEL(DBIL NOT INCLUDED) T Protein 7.9 6.4 - 8.2 11/16/2017 [facility] COMPREHENSIVE METABOLIC PANEL(DBIL NOT INCLUDED) GFR, Estimated 57 mL/min/1.73 m2 11/16/2017 [facility] COMPREHENSIVE METABOLIC PANEL(DBIL NOT INCLUDED) GFR, Estim, Afr-Am >60 mL/min/1.73 m2 11/16/2017 [facility] COMPREHENSIVE METABOLIC PANEL(DBIL NOT INCLUDED) Anion Gap 13.4 11/16/2017 [facility] METABOLIC PANEL(DBIL NOT INCLUDED) Lab Interpretation Abnormal 11/16/2017 [facility] OCCULT BLOOD ICT Occult Blood ICT Negative NEG 11/16/2017 [facility] 12 LEAD EKG 12 LEAD EKG FOR [facility] Test Date:2017-11-16 Pat Name: NELY Willamspartment: : Gender: MTechnician: [id number] :1965 Requested By: Order Number:Christal STAFFORD: Carmen Figueroa M.D. Measurements IntervalsAxis Rate: 119P:54 UT: 151QRS:70 QRSD: 83 T:65 QT: 317 QTc:447 Interpretive Statements SINUS TACHYCARDIA POSSIBLE LEFT ATRIAL ENLARGEMENT ANTEROSEPTAL MYOCARDIAL INFARCTION, OF INDETERMINATE AGE Electronically Signed On 11-16-17 14:02:15 ENROLLMENT MANAGEMENT COORDINATOR by Carmen Figueroa M.D. 11/16/2017 [facility] TROPONIN I POC Troponin POC 0.02 0 - 0.08 11/16/2017 [facility] POC CO2 POC 22 21 - 32 11/16/2017 [facility] POC Chloride POC 96 98 - 107 11/16/2017 [facility] POC Potassium POC 3.7 3.5 - 5.1 11/16/2017 [facility] POC Sodium POC 135 136 - 145 11/16/2017 [facility] POC Glucose POC 117 74 - 106 11/16/2017 [facility] POC Urea Nitrogen POC 30 7 - 18 11/16/2017 [facility] POC Creatinine POC 1.4 0.6 - 1.3 11/16/2017 [facility] POC Calcium Ionized POC 1.06 1.15 - 1.29 11/16/2017 [facility] POC Hemoglobin POC 19.0 14 - 18 11/16/2017 [facility] POC Hematocrit POC 56.0 40 - 54 11/16/2017 [facility] POC GFR, Estimated 53 mL/min/1.73 m2 11/16/2017 [facility] POC GFR, Estim, Afr-Am >60 mL/min/1.73 m2 11/16/2017 [facility] POC Lab Interpretation Abnormal 11/16/2017 [facility] 12 LEAD EKG 12 LEAD EKG FOR [facility] Test Date:2017-11-03 Pat Name: NELY Aguilar: : Gender: MTechnician: [id number] :1965 Requested By: Order Number:Reading MD: Carmen Figueroa M.D. Measurements IntervalsAxis Rate: 71 P:51 UT: 152QRS:59 QRSD: 96 T:89 QT: 418 QTc:454 Interpretive Statements Normal sinus rhythm Anterior infarct, age undetermined Abnormal ECG Electronically Signed On 11-03-17 11:10:14 ENROLLMENT MANAGEMENT COORDINATOR by Carmen Figueroa M.D. 11/03/2017 [facility] CREATININE Creatinine 1.30 0.6 - 1.3 10/10/2017 [facility] CREATININE GFR, Estimated 58 mL/min/1.73 m2 10/10/2017 [facility] CREATININE GFR, Estim, Afr-Am >60 mL/min/1.73 m2 10/10/2017 [facility] Pathology Reports No Data Provided for This [...] Ventura Beltran MD, 11/16/2017 5:26 PM 11/16/[address] [facility] [address] HEAD W/O CONTRAST IMPRESSION: 1.Minimal right [...] Alexia Mantilla MD, 10/17/2017 4:14 PM 10/17/2017 [facility] Consultation Notes No Data Provided for This Section Discharge Summaries No Data Provided for This Section History and Physicals No Data Provided for This Section Vital Signs Vital Sign Value Date Comments Source Systolic (mm Hg) 137 12/01/2017 [facility] Diastolic (mm Hg) 87 12/01/2017 [facility] Heart Rate 75 12/01/2017 [facility] Temperature Oral (F) 36.5 Mary 12/01/2017 [facility] Respitory Rate 18 12/01/2017 [facility] Height 170.7 cm 12/01/2017 [facility] Weight 92.08 12/01/2017 [facility] BMI Calculated 31.60 12/01/2017 [facility] Weight 203 10/02/2014 [facility] [place] Height 68 10/02/2014 [facility] Temperature Oral (F) 96.9 F 10/02/2014 [facility] Heart Rate 69 10/02/2014 [facility] [place] Diastolic (mm Hg) 85 10/02/2014 [facility] [place] Systolic (mm Hg) 130 10/02/2014 [facility] [place] [facility] [place] Height 68 07/03/2014 [facility] [...] Status Source Josefa Nick MD PA Unknown [id number] 05/27/2014 05/27/2014 Josefa Ncik MD PA Unknown [id number] 05/27/2014 05/27/2014 Josefa Nick MD PA Unknown [id number] 05/27/2014 05/27/2014 Josefa Nick MD PA Unknown [id number] 05/27/2014 05/27/2014 Josefa Nick MD PA Unknown [id number] 06/10/2014 06/10/2014 Josefa Nick, MD PA Unknown [id number] 06/10/2014 06/10/2014 Josefa Nick MD PA Unknown [id number] 06/10/2014 06/10/2014 Josefa Nick MD PA Unknown [id number] 07/03/2014 07/03/2014 Josefa Nick MD PA Unknown [id number] 07/03/2014 07/03/2014 Josefa Nick MD PA Unknown [id number] 10/02/2014 10/02/2014 Josefa Nick MD PA Unknown [id number] 10/02/2014 10/02/2014 Josefa Nick MD PA Unknown [id number] 12/09/2014 12/09/2014 Josefa Nick MD PA Unknown [id number] 12/09/2014 12/09/2014 [facility] Visit [id number] 10/06/2017 [facility] Office Visit [id number] Vision loss of right eye Concern about stroke without diagnosis CAD S/P percutaneous coronary angioplasty Chronic congestive heart failure, unspecified congestive heart failure type Smoker Wheezing S/P colonoscopy with polypectomy Family history of colon cancer in mother [place] Rojas MD 10/06/2017 10/06/2017 [facility] Visit [id number] 10/09/2017 [facility] Visit [id number] 10/10/2017 [facility] Orders Only [id number] CAD S/P percutaneous coronary angioplasty Chronic systolic congestive heart failure Smoker Chronic chest pain Everette Rojas MD 10/13/2017 [facility] Telephone [id number] Right facial numbness Vision loss of right eye Everette Rojas MD 10/17/[address] [facility] [address] Scan SC Ancillary Procedure [id number] Everette Rojas MD 10/17/2017 10/17/2017 [facility]acy Visit [id number] 10/24/2017 [facility] Telephone [id number] Sarah Perkins RN 11/02/2017 [facility] Only [id number] CAD S/P percutaneous coronary angioplasty Chronic systolic congestive heart failure Everette Rojas MD 11/02/2017 [facility] [id number] CAD S/P percutaneous coronary angioplasty Chronic systolic congestive heart failure Everette Rojas MD 11/03/2017 11/03/2017 [facility] ASK YOUR NURSE PROGRAM Nurse Triage [id number] Xiomara Bolaños RN 11/16/[address] [facility] Emergency [id number] Cough Influenza SIRS (systemic inflammatory response syndrome) Tachypnea Tachycardia CAD S/P percutaneous coronary angioplasty Wheezing Influenza B Elton Yang MD 11/16/2017 11/17/2017 [facility] Office Visit [id number] Vision loss of right eye Pato Morgan MD 11/20/2017 11/20/2017 [facility] Telephone [id number] Brittney Gil MD 11/27/2017 [facility] Office Visit [id number] Glaucomatous optic atrophy of right eye Transient visual loss of both eyes Blindness of one eye with normal vision in contralateral eye Elevated erythrocyte sedimentation rate Elevated C-reactive protein (CRP) Myopia of left eye with astigmatism and presbyopia Everette Rojas MD 11/27/2017 11/27/2017 [facility] Ophthalmology Nurse Only [id number] Isha Crawford 11/29/2017 11/29/2017 [facility] Ophthalmology Office Visit [id number] Neovascular glaucoma, right eye, 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 Blindness right eye category 5, normal vision left eye Age-related nuclear cataract of both eyes Ocular ischemic syndrome Cedric Santana MD 11/29/2017 11/29/2017 [facility] Social Work [facility] Clinical Case Mgt [id number] Cherri Graham RN 12/01/2017 [facility] Family Practice [facility] Office Visit [id number] Financial difficulties Blindness right eye category 5, normal vision left eye Glaucomatous optic atrophy of right eye CAD S/P percutaneous coronary angioplasty Everette Rojas MD 12/01/2017 12/01/2017 [facility] BT Ophthalmology Orders Only [id number] Ocular ischemic syndrome Neovascular glaucoma, right eye, severe stage Cedric Santana MD 12/06/2017 [facility] Medicine [facility] Encounter [id number] Everette Rojas MD 12/14/2017 12/14/2017 [facility] Procedures Procedure Code Date Perfomer Comments Source HEMOGLOBIN A1C 98032 11/20/2017 [facility] SED RATE 20024 11/20/2017 [facility] C-REACTIVE PROT 01430 11/20/2017 [facility] TSH 79551 11/20/2017 [facility] VITAMIN B12 77825 11/20/2017 [facility] SYPHILIS SCREEN FOR INFECTION 71766 11/20/2017 [facility] LIPID PROFILE 59513 11/20/2017 [facility] ELECTROPH, BLD 52780 11/20/2017 [facility] BASIC METABOLIC PANEL 08730 11/17/2017 [facility] XRAY CHEST 2 VIEWS 72279 11/16/2017 [facility] INFLUENZA RSV SUBTYPE 79417 11/16/2017 [facility] RAPID INFLUENZA SCREEN 21043 11/16/2017 [facility] SPUTUM STAIN / CULTURE 76360 11/16/2017 [facility] [place] [address] 11/16/2017 [facility] UA CHEMISTRIES 55820 11/16/2017 [facility] COMPREHENSIVE METABOLIC PANEL(DBIL NOT INCLUDED) 57806 11/16/2017 [facility] MAGNESIUM 17199 11/16/2017 [facility] B NATRIURETIC PEPT 95795 11/16/2017 [facility] PT/INR 10972 11/16/2017 [facility] BLOOD CULTURE 01970 11/16/2017 [facility] TROPONIN I POC 57944 11/16/2017 [facility] CBC/DIFF 25029 11/16/2017 [facility] BMP POC 08215 11/16/2017 [place] [address] LEAD EKG 20123 11/03/[address] [facility] [address] HEAD W/O CONTRAST 92377 10/17/2017 [facility] OCCULT BLOOD ICT 34923 10/09/2017 [facility] CREATININE 87907 10/09/2017 [facility] Assessment and Plan No Data Provided for This Section Plan of Care Plan of Care Date Source CORONARY ARTERY DISEASE AGE 18 AND UP 11/20/2018 [facility] Colorectal Cancer Scrn Annual (FIT/FOBT) Age 50 to 75 11/16/2018 [facility] IMM Influenza Seasonal Jul to December (>/=19 yrs) 07/30/2018 [facility] Social History Social History Date Source Tobacco [...] at BirthDate Recorded Not on file 12/01/2017 [facility] Social History ElementQualifiersDate Reported Smoking . Status Current Smoker 1 pack per day, Completed counseling for quiting smoking Yes February 12, 2015 Alcohol Use No. February 12, 2015 Alcohol Screening: No. February 12, 2015 Marital Status: . February 12, 2015 Do you drink alcohol? No. February 12, 2015 Occupation: . [employer] for [employer] February 12, 2015 02/12/2015 Josefa Nick Family History Value Date Source Medical HistoryRelationNameComments Cancer Brother Cancer Mother PHOENIX CALDERON Cancer Sister RelationNameStatusComments Brother Father GEORGE TINOCO (Age 1989) HEART PROBLEM Maternal Grandmother stroke Mother PHOENIX CALDERON Alive COLON CANCER Sister 09/10/2018 [facility] QualifierDescriptionCommentDate Reported Mother alive Aneuysm February 12, [...]
[2019-07-26 13:22] VITALS: BP 130/88
[2019-07-26 16:15] VITALS: BP 150/94
[2019-07-26 16:30] VITALS: BP 149/88
[2019-07-26 16:45] VITALS: BP 147/92
[2019-07-26 17:00] VITALS: BP 147/92
[2019-07-26 17:30] VITALS: BP 153/94
--- NOTE | 2019-07-26 18:00 | NUR ---
Pt meets DC criteria. right groin assessed for s/s of complication and presence of hematoma. overall skin warm, dry, no discolor, and pulses present. IV removed from left hand by Dalia EDGE GLUER. Distal tip appears intact. VS WNL. Pt denies pain, sob, or need at this time. Family at beside. Review of discharge paperwork and follow up instructions. verbalized understanding. Pt to wheelchair and transported to front of hospital. Transferred to private vehicle under own strength w/o incident with DC paperwork in hand. - cgf
--- NOTE | 2019-07-28 12:36 | Operative Report ---
DATE OF PROCEDURE: 07/26/2019 SURGEON: David Carr MD INDICATION: Coronary artery disease, abnormal stress test. PROCEDURES PERFORMED: 1. Left heart catheterization, selective coronary angiography. 2. Deployment of right groin Perclose closure device. COMPLICATIONS: None. RECOMMENDATIONS: Medical therapy. DESCRIPTION OF PROCEDURE: Access obtained in the right femoral artery. A 6-Samoan sheath was placed. Coronary angiography demonstrated widely patent stent in the left anterior descending artery. The right coronary artery circumflex has diffuse 50% to 70% stenosis, small vessel size. No intervention was deemed necessary. Right groin repaired using Perclose closure device. The patient was discharged home same day. David Carr MD KSB/MODL /[id number]
== END | disposition home or self-care (01) ==
LOC: CATH LAB 11:22
PROVIDERS: ATTEND Internal Medicine Interventional Cardiology
DX: I25.10 Atherosclerotic heart disease of native coronary artery without angina pectoris (principal); I11.0 Hypertensive heart disease with heart failure; I50.22 Chronic systolic (congestive) heart failure; R94.39 Abnormal result of other cardiovascular function study; E78.00 Pure hypercholesterolemia, unspecified; Z88.0 Allergy status to penicillin; Z88.8 Allergy status to other drugs, medicaments and biological substances; Z01.812 Encounter for preprocedural laboratory examination; Z79.82 Long term (current) use of aspirin; Z79.02 Long term (current) use of antithrombotics/antiplatelets; Z68.31 Body mass index [BMI] 31.0-31.9, adult; Z91.81 History of falling; Z95.5 Presence of coronary angioplasty implant and graft
CPT/HCPCS: 36415; 80053; 85025; 93454; C1760; J2001; J2250; J3010; J7030; Q9967; J0583; J1644

== ENCOUNTER → 2020-12-08 | Day surgery (SDC) | payer MEDICARE ==
[2020-12-03 10:51] LABS: BASOPHILS # (AUTO) 0.1 (0.0-0.1); BASOPHILS % 1.5 % (0.0-1.0); EOSINOPHILS # (AUTO) 0.2 (0.0-0.4); EOSINOPHILS % 2.1 % (0.0-6.0); HEMATOCRIT 50.2 % (38.2-49.6); HEMOGLOBIN 16.5 g/dL (14.0-18.0); LYMPHOCYTES # (AUTO) 1.9 (1.0-3.2); LYMPHOCYTES % 22.3 % (18.0-39.1); MEAN CORPUSCULAR HEMOGLOBIN 30.2 pg (28-32); MEAN CORPUSCULAR HGB CONC 32.9 g/dL (31-35); MEAN CORPUSCULAR VOLUME 91.9 fL (81-99); MONOCYTES # (AUTO) 0.8 (0.2-0.8); MONOCYTES % 9.1 % (4.4-11.3); NEUTROPHILS # (AUTO) 5.5 (2.1-6.9); NEUTROPHILS % 64.6 % (38.7-80.0); PLATELET COUNT 299 x10e3/uL (140-360); RED BLOOD COUNT 5.46 x10e6/uL (4.3-5.7); RED CELL DISTRIBUTION WIDTH 13.2 % (11.7-14.4)
[2020-12-03 11:09] LABS: ALBUMIN 3.9 g/dL (3.5-5.0); ALBUMIN/GLOBULIN RATIO 1.1 (0.8-2.0); ANION GAP 14.8 mmol/L (8-16); CALCIUM 9.1 mg/dL (8.4-10.2); CREATININE, SERUM 1.42 mg/dL (0.72-1.25); POTASSIUM 4.8 mmol/L (3.5-5.1)
[~2020-12-08] VITALS: Ht 172.7 cm; Wt 93.9 kg
[2020-12-08] VITALS (16 sets, daily range): BP systolic 114–145; BP diastolic 72–102
[~2020-12-08] MED LIST changes: +ASPIRIN 325 MG TAB ONE; +CLOPIDOGREL BISULFATE 75 MG TAB ONE; +COREG6.25 MG PO; -HEPARIN SOD (PORCINE) 1000 UNIT/ML 30ML ONE; -LIDOCAINE HCL 2% 30 ML TUBE ONE; +PRASUGREL 10 MG TAB ONE; +PRILOSEC OTC20 MG PO; -SODIUM CHLORIDE 0.9% 50ML 0 ML ONE; +SODIUM CHLORIDE 0.9% 50ML 50 ML ONE; +TRELEGY ELLIPT1 EACH INH; +VENTOLIN HFA18 GM INH
== END | disposition home or self-care (01) ==
LOC: CATH LAB 08:10
PROVIDERS: ATTEND Internal Medicine Interventional Cardiology
DX: I25.118 Atherosclerotic heart disease of native coronary artery with other forms of angina pectoris (principal); R94.39 Abnormal result of other cardiovascular function study; I25.2 Old myocardial infarction; I16.0 Hypertensive urgency; I11.0 Hypertensive heart disease with heart failure; I50.22 Chronic systolic (congestive) heart failure; J44.9 Chronic obstructive pulmonary disease, unspecified; Z88.0 Allergy status to penicillin; Z88.8 Allergy status to other drugs, medicaments and biological substances; Z01.812 Encounter for preprocedural laboratory examination; Z20.822 Contact with and (suspected) exposure to COVID-19; Z79.02 Long term (current) use of antithrombotics/antiplatelets; Z79.82 Long term (current) use of aspirin; Z68.31 Body mass index [BMI] 31.0-31.9, adult; Z95.5 Presence of coronary angioplasty implant and graft; Z82.49 Family history of ischemic heart disease and other diseases of the circulatory system; Z82.3 Family history of stroke
CPT/HCPCS: 76937; 93458; C9600; 36415; 80053; 85025; 92928; 99152; C1760; C1769; C1874; C1887; J0583; J2001; J2250; J3010; J7030; Q9967; U0002

== ENCOUNTER 2022-06-21 10:47 | Observation (INO) | payer MEDICARE ==
[2022-06-17 08:50] LABS: BASOPHILS # (AUTO) 0.1 (0.0-0.1); BASOPHILS % 1.7 % (0.0-1.0); EOSINOPHILS # (AUTO) 0.2 (0.0-0.4); HEMATOCRIT 47.1 % (38.2-49.6); HEMOGLOBIN 15.5 g/dL (14.0-18.0); LYMPHOCYTES # (AUTO) 1.6 (1.0-3.2); LYMPHOCYTES % 20.6 % (18.0-39.1); MEAN CORPUSCULAR HEMOGLOBIN 31.8 pg (28-32); MEAN CORPUSCULAR HGB CONC 32.9 g/dL (31-35); MEAN CORPUSCULAR VOLUME 96.5 fL (81-99); MONOCYTES # (AUTO) 0.7 (0.2-0.8); MONOCYTES % 8.6 % (4.4-11.3); NEUTROPHILS % 66.8 % (38.7-80.0); PLATELET COUNT 270 x10e3/uL (140-360); RED BLOOD COUNT 4.88 x10e6/uL (4.3-5.7); RED CELL DISTRIBUTION WIDTH 14.2 % (11.7-14.4)
[2022-06-17 09:18] LABS: ALANINE AMINOTRANSFERASE 16 IU/L (0-55); ALBUMIN 3.8 g/dL (3.5-5.0); ALBUMIN/GLOBULIN RATIO 1.2 (0.8-2.0); ALKALINE PHOSPHATASE 87 IU/L (40-150); ANION GAP 13.3 mmol/L (8-16); BLOOD UREA NITROGEN 9 mg/dL (7-26); BUN/CREATININE RATIO 7 (6-25); CALCIUM 9.1 mg/dL (8.4-10.2); CARBON DIOXIDE 26 mmol/L (22-29); CHLORIDE 103 mmol/L (98-107); CREATININE, SERUM 1.29 mg/dL (0.72-1.25); GLUCOSE 103 mg/dL (74-118); POTASSIUM 4.3 mmol/L (3.5-5.1); SODIUM 138 mmol/L (136-145)
[~2022-06-21] VITALS: Ht 172.7 cm; Wt 92.1 kg
[2022-06-21] VITALS (7 sets, daily range): BP systolic 123–149; BP diastolic 79–103
[~2022-06-21 10:47] MED LIST changes: -ALPRAZOLAM 0.5 MG TAB ONE; -ASPIRIN 325 MG TAB ONE; -BIVALRIUDIN 250 MG/VIAL VIAL IV ONE; -CLOPIDOGREL BISULFATE 75 MG TAB ONE; -DIPHENHYDRAMINE HCL 25 MG CAP ONE; -FENTANYL CITRATE/PF 100MCG/2 ML INJ ONE; -HEPARIN SOD/SOD CHLORIDE 2,000 ML ONE; -IOPAMIDOL 370 MG/ML 200 ML INFUS..BTL INJ ONE; -LIDOCAINE HCL 2% LOCAL 20 ML VIAL ONE; -MIDAZOLAM HCL 2 MG/2 ML VIAL ONE; -PRASUGREL 10 MG TAB ONE; -SODIUM CHLORIDE 0.9% 1000ML 1,000 ML ONE; -SODIUM CHLORIDE 0.9% 50ML 50 ML ONE; -VERAPAMIL HCL 2.5 MG/ML 2 ML VIAL ONE
[2022-06-21] MEDS ORDERED: DIPHENHYDRAMINE HCL 25 MG CAP ONE (12:44)
[2022-06-21] MEDS ORDERED: ALPRAZOLAM 0.5 MG TAB ONE (12:44)
[2022-06-21] MEDS ORDERED: MIDAZOLAM HCL 2 MG/2 ML VIAL ONE (16:29)
[2022-06-21] MEDS ORDERED: HEPARIN SOD/SOD CHLORIDE 2,000 ML ONE (16:30)
[2022-06-21] MEDS ORDERED: FENTANYL CITRATE/PF 100MCG/2 ML INJ ONE (16:30)
[2022-06-21] MEDS ORDERED: SODIUM CHLORIDE 0.9% 1000ML 1,000 ML ONE (16:31)
[2022-06-21] MEDS ORDERED: LIDOCAINE HCL 1% LOCAL INJ 20 ML VIAL ONE (16:31)
[2022-06-21] MEDS ORDERED: IOPAMIDOL 370 MG/ML 100 ML INFUS..BTL INJ ONE (16:31)
[2022-06-21] MEDS ORDERED: BIVALRIUDIN 250 MG/VIAL VIAL IV ONE (17:08)
[2022-06-21] MEDS ORDERED: PRASUGREL 10 MG TAB ONE (17:16)
[2022-06-21] MEDS ORDERED: ASPIRIN 325 MG TAB ONE (17:16)
[2022-06-21] MEDS: SODIUM CHLORIDE 0.9% 1000ML 1,000 ML IV SCH (17:30)
[2022-06-21] MEDS ORDERED: Morphine 4mg INJECTION 4 MG/ML INJ IV PRN (17:30)
[2022-06-21] MEDS ORDERED: HYDROCODONE/APAP 5MG-325MG TAB PO PRN (17:30)
[2022-06-21] MEDS ORDERED: ACETAMINOPHEN 325 MG TAB PO PRN (17:30)
[2022-06-21] MEDS ORDERED: Morphine 2mg Syringe 2 MG/ML SYR IV PRN (17:30)
[2022-06-21] MEDS ORDERED: ALBUTEROL SULF 0.083% NEB SOLN 3 ML NEB INH PRN (17:30)
[2022-06-21] MEDS ORDERED: NITROGLYCERIN 0.4 MG SUBL SL PRN (17:30)
[2022-06-21] MEDS ORDERED: ONDANSETRON HCL INJ 2MG/ML 2ML 2 MG/ML VIAL IV PRN (17:30)
[2022-06-21] MEDS ORDERED: ZOLPIDEM TARTRATE 5 MG TAB PO PRN (21:00)
[2022-06-22 04:00] VITALS: BP 155/95
[2022-06-22 05:12] LABS: BASOPHILS # (AUTO) 0.1 (0.0-0.1); BASOPHILS % 0.9 % (0.0-1.0); EOSINOPHILS # (AUTO) 0.1 (0.0-0.4); EOSINOPHILS % 1.3 % (0.0-6.0); HEMATOCRIT 45.2 % (38.2-49.6); HEMOGLOBIN 15.2 g/dL (14.0-18.0); LYMPHOCYTES # (AUTO) 1.8 (1.0-3.2); LYMPHOCYTES % 18.6 % (18.0-39.1); MEAN CORPUSCULAR HEMOGLOBIN 32.1 pg (28-32); MEAN CORPUSCULAR HGB CONC 33.6 g/dL (31-35); MEAN CORPUSCULAR VOLUME 95.6 fL (81-99); MONOCYTES # (AUTO) 0.9 (0.2-0.8); MONOCYTES % 9.4 % (4.4-11.3); NEUTROPHILS # (AUTO) 6.8 (2.1-6.9); NEUTROPHILS % 69.3 % (38.7-80.0); PLATELET COUNT 240 x10e3/uL (140-360); RED BLOOD COUNT 4.73 x10e6/uL (4.3-5.7); RED CELL DISTRIBUTION WIDTH 13.8 % (11.7-14.4)
[2022-06-22] MEDS: SODIUM CHLORIDE 0.9% 1000ML 1,000 ML IV SCH (05:30)
[2022-06-22 05:44] LABS: ANION GAP 13.8 mmol/L (8-16); CALCIUM 8.6 mg/dL (8.4-10.2); CREATININE, SERUM 0.97 mg/dL (0.72-1.25); POTASSIUM 3.8 mmol/L (3.5-5.1)
[2022-06-22 08:36] VITALS: BP 137/110
[2022-06-22 08:58] VITALS: BP 137/110
[2022-06-22] MEDS ORDERED: ASPIRIN 81 MG CHEW TAB PO SCH (09:00)
[2022-06-22] MEDS ORDERED: CLOPIDOGREL BISULFATE 75 MG TAB PO SCH (09:00)
[2022-06-22] MEDS ORDERED: LOSARTAN POTASSIUM 100 MG TAB PO SCH (09:00)
[2022-06-22] MEDS ORDERED: ISOSORBIDE MONONITRATE 30 MG TAB CR PO SCH (09:00)
[2022-06-22] MEDS ORDERED: CARVEDILOL 3.125 MG TAB PO SCH (09:00)
[2022-06-22] MEDS ORDERED: ONDANSETRON HCL 4 MG ORAL DISINTEGRATING TAB PO PRN (09:45)
[2022-06-22] MEDS ORDERED: SIMVASTATIN 20 MG TAB PO SCH (21:00)
== END 2022-06-22 09:52 | disposition home or self-care (01) ==
LOC: CATH LAB 10:47 → INTOOBSV 17:47 → MED/SURG 17:47
PROVIDERS: ADMIT Internal Medicine Interventional Cardiology; ATTEND Internal Medicine Interventional Cardiology
DX: I25.110 Atherosclerotic heart disease of native coronary artery with unstable angina pectoris (principal); T82.855A Stenosis of coronary artery stent, initial encounter; R94.39 Abnormal result of other cardiovascular function study; Z01.818 Encounter for other preprocedural examination; I11.0 Hypertensive heart disease with heart failure; I50.22 Chronic systolic (congestive) heart failure; I73.9 Peripheral vascular disease, unspecified; Z88.0 Allergy status to penicillin; F17.200 Nicotine dependence, unspecified, uncomplicated
CPT/HCPCS: 93454; C9600; 0223U; 36415; 76937; 80048; 80053; 83880; 85025; 92928; 99152; C1760; C1874; C1894; G0378; J0583; J2001; J2250; J3010; J7030; Q9967